=== PATIENT | female | born 1965 | race African-American/Black ===

== ENCOUNTER 2016-12-21 09:31 | Inpatient (IN) | payer OTHER ==
[~2016-12-21] VITALS: Ht 182.9 cm; Wt 92.1 kg
[~2016-12-21 09:31] MED LIST: ALBUAER3 IN; AML5T PO; ASPI81CH43 PO; DOXY-216 PO; ENA10T PO; FLUT250M2 INH; LORA-655 PO; QUET50TA PO
[2016-12-21 10:58] LABS: Basophils # (auto) 0 uL; Basophils % (auto) 0.6 % (0.0-2.0); Eosinophils # (auto) 0.1 uL; Eosinophils % (auto) 1.8 % (0.0-7.0); Hematocrit 41.5 % (36.0-46.0); Hemoglobin 13.9 g/dL (12.2-16.2); Lymphocytes # (auto) 1.7 uL; Lymphocytes % (auto) 35.4 % (10.0-50.0); Mean Corpuscular Hemoglobin 31.7 pg (28.0-32.0); Mean Corpuscular Hgb Conc. 33.5 g/dL (32.0-36.0); Mean Corpuscular Volume 94.5 fL (80.0-100.0); Mean Platelet Volume 7.7 fL (7.4-10.4); Monocytes # (auto) 0.3 uL; Monocytes % (auto) 6.3 % (0.0-12.0); Neutrophils # (auto) 2.7 uL; Neutrophils % (auto) 55.9 % (37.0-80.0); Platelet Count (auto) 198 10^3/uL (140-450); Red Cell Distribution Width 13.8 % (11.6-16.0); White Blood Cell 4.8 10^3/uL (4.4-10.8)
[2016-12-21 11:12] LABS: Urine Mucus FEW (None Seen); Urine RBC 1 /hpf (0 - 4); Urine Squamous Epithelial Cell FEW /hpf (<5)
[2016-12-21 11:13] LABS: Urine Color Yellow (Yellow)
[2016-12-21 11:15] LABS: Urine Bilirubin Negative (Negative); Urine Blood Negative /uL (Negative); Urine Ketone Negative (Negative); Urine Nitrite POSITIVE (Negative); Urine Urobilinogen Normal (Negative)
[2016-12-21 11:21] LABS: Albumin 4.2 g/dL (3.4-5.0); BUN/Creatinine Ratio 19.4; Calcium 9.1 mg/dL (8.5-10.1)
[2016-12-21 11:24] LABS: Bilirubin, Total 0.4 mg/dL (0.2-1.0); Total Protein 8.1 g/dL (6.4-8.2)
[2016-12-21] MEDS ORDERED: SODIUM CHLORIDE 0.9% 500 ML IVB ONE (12:01)
[2016-12-21] MEDS ORDERED: PANTOPRAZOLE SODIUM 40 MG/10 ML VIAL IV STA (12:01)
[2016-12-21] MEDS ORDERED: ONDANSETRON HCL 4 MG/2 ML VIAL IV ONE (12:15)
[2016-12-21] MEDS ORDERED: HYDROmorphone HCL 2 MG/ML VL IV ONE ×2 (12:15→14:15)
[2016-12-21 12:31] LABS: Amylase 30 U/L (25-115)
[2016-12-21] MEDS ORDERED: cloNIDine HCL 0.1 MG TAB PO ONE (12:45)
[2016-12-21] MEDS ORDERED: cefTRIAXone 1GM/50ML D5W 50 ML IV ONE (14:00)
[2016-12-21] MEDS ORDERED: amLODIPine BESYLATE 5 MG TAB PO ONE (15:00)
[2016-12-21] MEDS ORDERED: cloNIDine HCL 0.1 MG TAB PO PRN (15:00)
[2016-12-21] MEDS ORDERED: LABETALOL HCL 5 MG/ML 4ML SYRINGE IV PRN (15:00)
[2016-12-21] MEDS ORDERED: MULTIPLE VITAMIN TAB PO ONE (15:15)
[2016-12-21] MEDS ORDERED: ACETAMINOPHEN 325 MG TAB PO PRN (15:15)
[2016-12-21] MEDS ORDERED: NITROGLYCERIN 0.4 MG SL TAB SL PRN (15:15)
[2016-12-21] MEDS ORDERED: DOCUSATE SOD 100 MG CAP PO PRN (15:15)
[2016-12-21] MEDS ORDERED: HYDROcodone-ACET 5/325MG TAB PO PRN (15:15)
[2016-12-21] MEDS ORDERED: MORPHINE SULF INJ 2 MG/ML SYRINGE 1ML IV PRN ×2 (15:15)
[2016-12-21] MEDS: SODIUM CHLORIDE 0.9% 1,000 ML IV SCH (15:21)
[2016-12-21] MEDS: LEVOFLOXACIN 500MG 100 ML IV SCH (15:32)
[2016-12-21] MEDS: ONDANSETRON HCL 4 MG/2 ML VIAL IV PRN ×2 (16:38→20:53)
[2016-12-21] MEDS: HYDROmorphone HCL 2 MG/ML VL IV PRN ×2 (18:22→22:29)
[2016-12-21] MEDS: ALBUTEROL SULF 2.5 MG/0.5ML(0.5%) NEB SOLN NEB SCH (18:36)
[2016-12-21] MEDS: IPRATROPIUM BROM 0.5 MG/2.5ML INH SOL NEB SCH (18:36)
[2016-12-21] MEDS: BUDESONIDE (INHALATION) 0.5 MG/2 ML NEB NEB SCH (18:37)
[2016-12-21] MEDS: metroNIDAZOLE 500MG/100ML 100 ML IV SCH (22:28)
[2016-12-21] MEDS: FAMOTIDINE 20 MG TAB PO SCH (22:28)
[2016-12-21] MEDS: TEMAZEPAM 15 MG CAP PO PRN (22:29)
[2016-12-21] MEDS: LORazepam 0.5 MG TAB PO PRN (22:29)
[2016-12-22] VITALS (7 sets, daily range): BP systolic 129–181; BP diastolic 78–119
[2016-12-22] MEDS: IPRATROPIUM BROM 0.5 MG/2.5ML INH SOL NEB SCH ×4 (00:19→19:14)
[2016-12-22] MEDS: ALBUTEROL SULF 2.5 MG/0.5ML(0.5%) NEB SOLN NEB SCH ×4 (00:19→19:14)
[2016-12-22] MEDS: diphenhdrAMINE HCL 50 MG/1 ML VL IV PRN ×3 (00:51→22:15)
[2016-12-22] MEDS: HYDROmorphone HCL 2 MG/ML VL IV PRN ×5 (02:40→20:46)
[2016-12-22 06:21] LABS: Basophils # (auto) 0 uL; Basophils % (auto) 0.8 % (0.0-2.0); Eosinophils # (auto) 0.1 uL; Hematocrit 37.1 % (36.0-46.0); Hemoglobin 12.4 g/dL (12.2-16.2); Lymphocytes # (auto) 1.3 uL; Lymphocytes % (auto) 37.9 % (10.0-50.0); Mean Corpuscular Hemoglobin 31.6 pg (28.0-32.0); Mean Corpuscular Hgb Conc. 33.3 g/dL (32.0-36.0); Mean Corpuscular Volume 94.9 fL (80.0-100.0); Mean Platelet Volume 7.7 fL (7.4-10.4); Monocytes # (auto) 0.2 uL; Monocytes % (auto) 5.9 % (0.0-12.0); Neutrophils # (auto) 1.8 uL; Neutrophils % (auto) 53.4 % (37.0-80.0); Platelet Count (auto) 169 10^3/uL (140-450); Red Cell Distribution Width 13.5 % (11.6-16.0); White Blood Cell 3.4 10^3/uL (4.4-10.8)
[2016-12-22 06:44] LABS: Potassium 3.4 mmol/L (3.5-5.1)
[2016-12-22] MEDS: metroNIDAZOLE 500MG/100ML 100 ML IV SCH (06:55)
[2016-12-22 06:57] LABS: Albumin 3.6 g/dL (3.4-5.0); BUN/Creatinine Ratio 16.1; Calcium 8.4 mg/dL (8.5-10.1)
[2016-12-22 06:59] LABS: Bilirubin, Total 0.4 mg/dL (0.2-1.0); Total Protein 7.2 g/dL (6.4-8.2)
[2016-12-22] MEDS: ONDANSETRON HCL 4 MG/2 ML VIAL IV PRN ×4 (07:01→20:45)
[2016-12-22] MEDS: BUDESONIDE (INHALATION) 0.5 MG/2 ML NEB NEB SCH ×2 (07:39→19:14)
[2016-12-22] MEDS: SODIUM CHLORIDE 0.9% 1,000 ML IV SCH (07:41)
[2016-12-22] MEDS ORDERED: cefTRIAXone 1GM/50ML D5W 50 ML IV SCH (09:00)
[2016-12-22] MEDS: LORazepam 0.5 MG TAB PO PRN ×2 (09:53→18:38)
[2016-12-22] MEDS: LEVOFLOXACIN 500MG 100 ML IV SCH (09:54)
[2016-12-22] MEDS: FAMOTIDINE 20 MG TAB PO SCH (09:54)
[2016-12-22] MEDS: MULTIPLE VITAMIN TAB PO SCH (09:55)
[2016-12-22] MEDS ORDERED: PATIENTS OWN MEDICATION IN SCH ×2 (10:00)
[2016-12-22] MEDS ORDERED: amLODIPine BESYLATE 5 MG TAB PO SCH (10:00)
[2016-12-22] MEDS ORDERED: ENALAPRIL MALEATE 2.5 MG TAB PO ONE (13:30)
[2016-12-22] MEDS ORDERED: amLODIPine BESYLATE 5 MG TAB PO ONE (13:45)
[2016-12-22] MEDS ORDERED: PANTOPRAZOLE 40 MG TAB PO ONE (14:15)
[2016-12-22] MEDS: PANTOPRAZOLE 40 MG TAB PO SCH (22:07)
[2016-12-22] MEDS: TEMAZEPAM 15 MG CAP PO PRN (22:23)
[2016-12-23] MEDS: ALBUTEROL SULF 2.5 MG/0.5ML(0.5%) NEB SOLN NEB SCH ×3 (00:46→11:58)
[2016-12-23] MEDS: IPRATROPIUM BROM 0.5 MG/2.5ML INH SOL NEB SCH ×3 (00:46→11:58)
[2016-12-23] MEDS: ONDANSETRON HCL 4 MG/2 ML VIAL IV PRN (04:36)
[2016-12-23] MEDS: HYDROmorphone HCL 2 MG/ML VL IV PRN ×2 (04:36→09:53)
[2016-12-23 05:30] VITALS: BP 139/96
[2016-12-23] MEDS: BUDESONIDE (INHALATION) 0.5 MG/2 ML NEB NEB SCH (06:26)
[2016-12-23 07:42] LABS: INR 1.05 (0.9-1.15); Partial Thromboplastin Time 26.4 sec (22.64-33.71); Prothrombin Time 10.8 sec (9.37-12.3)
[2016-12-23] MEDS ORDERED: PANT40T PO (07:50)
[2016-12-23] MEDS ORDERED: AML5T PO (07:50)
[2016-12-23] MEDS ORDERED: LEVO-28 PO (07:50)
[2016-12-23 08:00] VITALS: BP 139/96
[2016-12-23] MEDS ORDERED: SODIUM CHLORIDE LOCK 10 ML ONE (08:30)
[2016-12-23 08:50] VITALS: BP 116/76
[2016-12-23] MEDS: LEVOFLOXACIN 500MG 100 ML IV SCH (09:53)
[2016-12-23] MEDS: MULTIPLE VITAMIN TAB PO SCH (09:55)
[2016-12-23] MEDS: PANTOPRAZOLE 40 MG TAB PO SCH (09:56)
[2016-12-23] MEDS ORDERED: ENALAPRIL MALEATE 2.5 MG TAB PO SCH (10:00)
[2016-12-23] MEDS ORDERED: amLODIPine BESYLATE 5 MG TAB PO SCH (10:00)
[2016-12-23] MEDS: MIDAZOLAM HCL 5 MG/ML-1ML VIAL ONE ×2 (11:40→11:43)
[2016-12-23] MEDS: LIDOCAINE VISCOUS 2% 15ML UD ONE (11:40)
[2016-12-23] MEDS: diphenhdrAMINE HCL 50 MG/1 ML VL ONE (11:40)
[2016-12-23] MEDS: fentaNYL CITRATE 100 MCG/2 ML VL ONE ×2 (11:40→11:43)
[2016-12-23 12:53] VITALS: BP 139/96
== END 2016-12-23 14:25 | disposition home or self-care (01) | DRG 241 ==
LOC: ER 09:31 → TELE 09:32 → TELE-WESTW 18:45
PROVIDERS: ADMIT Internal Medicine; ATTEND Internal Medicine
PROC: 0DB68ZX Excision of Stomach, Via Natural or Artificial Opening Endoscopic, Diagnostic (ICD-10-PCS; principal; 2016-12-23 11:37)
DX: K29.70 Gastritis, unspecified, without bleeding (principal); K76.0 Fatty (change of) liver, not elsewhere classified; B19.10 Unspecified viral hepatitis B without hepatic coma; N39.0 Urinary tract infection, site not specified; J44.9 Chronic obstructive pulmonary disease, unspecified; K62.5 Hemorrhage of anus and rectum; K57.90 Diverticulosis of intestine, part unspecified, without perforation or abscess without bleeding; F45.8 Other somatoform disorders; I10 Essential (primary) hypertension; E78.5 Hyperlipidemia, unspecified; J45.909 Unspecified asthma, uncomplicated; B96.89 Other specified bacterial agents as the cause of diseases classified elsewhere; I25.10 Atherosclerotic heart disease of native coronary artery without angina pectoris; F41.9 Anxiety disorder, unspecified; F17.210 Nicotine dependence, cigarettes, uncomplicated; M51.36 Other intervertebral disc degeneration, lumbar region; Z85.41 Personal history of malignant neoplasm of cervix uteri; I25.2 Old myocardial infarction; Z79.82 Long term (current) use of aspirin; Z79.899 Other long term (current) drug therapy; Z90.49 Acquired absence of other specified parts of digestive tract; Z98.51 Tubal ligation status; R13.10 Dysphagia, unspecified
CPT/HCPCS: 36415; 43239; 74176; 80053; 81001; 82150; 83690; 84484; 85025; 85610; 85730; 87086; 87088; 87186; 93005; 94640; C9113; J1956; J2250; J2405; J3490

== ENCOUNTER 2017-11-07 20:38 | Inpatient (IN) | payer OTHER ==
[~2017-11-07] VITALS: Ht 182.9 cm; Wt 95.7 kg
[~2017-11-07 20:38] MED LIST changes: -DOXY-216 PO; +LEVO-28 PO; +LEVO500T21 PO; +METR500T PO; +PANT40T PO
[2017-11-07 22:19] LABS: Basophils # (auto) 0.1 uL; Basophils % (auto) 0.8 % (0.0-2.0); Eosinophils # (auto) 0.1 uL; Eosinophils % (auto) 1.4 % (0.0-7.0); Hematocrit 36.6 % (36.0-46.0); Hemoglobin 12.4 g/dL (12.2-16.2); Lymphocytes # (auto) 2.7 uL; Lymphocytes % (auto) 37.6 % (10.0-50.0); Mean Corpuscular Hemoglobin 30.6 pg (28.0-32.0); Mean Corpuscular Volume 90.2 fL (80.0-100.0); Monocytes # (auto) 0.3 uL; Monocytes % (auto) 4.6 % (0.0-12.0); Neutrophils % (auto) 55.6 % (37.0-80.0); Nucleated Red Blood Cells % 0.2 %; Platelet Count (auto) 195 10^3/uL (140-450); Red Blood Cells 4.05 10^6/uL (4.0-5.20); Red Cell Distribution Width 12.7 % (11.8-14.3); White Blood Cell 7.2 10^3/uL (4.4-10.8)
[2017-11-07 22:39] LABS: Alanine Aminotransferase 24 U/L (13-56); Albumin 3.9 g/dL (3.4-5.0); Alkaline Phosphatase 69 U/L (45-117); Amylase 53 U/L (25-115); Anion Gap 9 (5-15); Aspartate Aminotransferase 19 U/L (15-37); BUN/Creatinine Ratio 21.5; Bilirubin, Total 0.3 mg/dL (0.2-1.0); Blood Urea Nitrogen 14 mg/dL (7-18); Calcium 8.8 mg/dL (8.5-10.1); Carbon Dioxide 26 mmol/L (21-32); Chloride 105 mmol/L (98-107); GFR African American 123 mL/min; GFR Non-African American 102 mL/min; Glucose 93 mg/dL (74-106); Lipase 154 U/L (73-393); Magnesium 2.3 mg/dL (1.6-2.6); Potassium 3.7 mmol/L (3.5-5.1); Sodium 140 mmol/L (136-145)
[2017-11-07 23:01] LABS: Urine Bacteria NONE SEEN /hpf (None Seen); Urine Blood Negative /uL (Negative); Urine Mucus FEW (None Seen); Urine Specific Gravity 1.026 (1.001-1.035); Urine WBC 3 /hpf (0 - 5)
[2017-11-08] MEDS ORDERED: metroNIDAZOLE 500MG/100ML 100 ML IV ONE (03:15)
[2017-11-08] MEDS ORDERED: ONDANSETRON HCL 4 MG/2 ML VIAL IV ONE (03:15)
[2017-11-08] MEDS ORDERED: SODIUM CHLORIDE 0.9% 1,000 ML IV ONE (03:15)
[2017-11-08] MEDS ORDERED: HYDROmorphone HCL 2 MG/ML VL IV ONE ×2 (03:15→06:00)
[2017-11-08] MEDS: SODIUM CHLORIDE 0.9% 1,000 ML IV SCH ×2 (05:58→22:26)
[2017-11-08] MEDS ORDERED: ALBUTEROL SULF 2.5 MG/0.5ML(0.5%) NEB SOLN NEB PRN (06:00)
[2017-11-08] MEDS ORDERED: ACETAMINOPHEN 325 MG TAB PO PRN (06:00)
[2017-11-08] MEDS ORDERED: HYDROcodone-ACET 5/325MG TAB PO PRN (06:00)
[2017-11-08] MEDS ORDERED: MORPHINE SULFATE 10 MG/ML INJ 1ML SDV IV PRN (06:00)
[2017-11-08] MEDS ORDERED: LEVOFLOXACIN 500MG 100 ML IV ONE (06:30)
[2017-11-08 07:26] VITALS: BP 122/76
[2017-11-08 07:56] VITALS: BP 119/72
[2017-11-08] MEDS: PANTOPRAZOLE 40 MG/10 ML VIAL IV SCH (09:15)
[2017-11-08] MEDS: amLODIPine BESYLATE 5 MG TAB PO SCH (09:16)
[2017-11-08] MEDS: ENALAPRIL MALEATE 2.5 MG TAB PO SCH (09:17)
[2017-11-08] MEDS: ENOXAPARIN SOD 40 MG/0.4 ML SYRINGE SC SCH (09:17)
[2017-11-08] MEDS ORDERED: MORPHINE SULF INJ 2 MG/ML SYRINGE 1ML IV PRN ×2 (10:45→11:30)
[2017-11-08 12:24] VITALS: BP 121/65
[2017-11-08] MEDS: metroNIDAZOLE 500MG/100ML 100 ML IV SCH ×2 (14:19→21:32)
[2017-11-08] MEDS: ONDANSETRON HCL 4 MG/2 ML VIAL IV PRN (20:10)
[2017-11-08] MEDS ORDERED: NALBUPHINE HCL 10 MG/1ml INJECTION IV ONE (21:00)
[2017-11-08 22:18] VITALS: BP 101/73
[2017-11-08] MEDS: TEMAZEPAM 15 MG CAP PO PRN (23:03)
[2017-11-09 04:25] VITALS: BP 133/89
[2017-11-09 05:34] LABS: Basophils # (auto) 0 uL; Basophils % (auto) 0.5 % (0.0-2.0); Eosinophils # (auto) 0.1 uL; Eosinophils % (auto) 1.1 % (0.0-7.0); Hematocrit 35.1 % (36.0-46.0); Lymphocytes # (auto) 1.8 uL; Lymphocytes % (auto) 30.6 % (10.0-50.0); Mean Corpuscular Hgb Conc. 34.2 g/dL (32.0-36.0); Mean Corpuscular Volume 90.5 fL (80.0-100.0); Monocytes # (auto) 0.3 uL; Monocytes % (auto) 5.3 % (0.0-12.0); Neutrophils # (auto) 3.6 uL; Neutrophils % (auto) 62.5 % (37.0-80.0); Platelet Count (auto) 158 10^3/uL (140-450); Red Blood Cells 3.88 10^6/uL (4.0-5.20); Red Cell Distribution Width 12.4 % (11.8-14.3); White Blood Cell 5.8 10^3/uL (4.4-10.8)
[2017-11-09] MEDS: metroNIDAZOLE 500MG/100ML 100 ML IV SCH ×3 (05:36→21:40)
[2017-11-09 06:04] LABS: Albumin 3.6 g/dL (3.4-5.0); BUN/Creatinine Ratio 14.8; Bilirubin, Total 0.8 mg/dL (0.2-1.0); Calcium 8.8 mg/dL (8.5-10.1); Potassium 3.8 mmol/L (3.5-5.1); Total Protein 7.8 g/dL (6.4-8.2)
[2017-11-09 09:00] VITALS: BP 124/69
[2017-11-09] MEDS: PANTOPRAZOLE 40 MG/10 ML VIAL IV SCH (09:38)
[2017-11-09] MEDS: amLODIPine BESYLATE 5 MG TAB PO SCH (09:46)
[2017-11-09] MEDS: ENALAPRIL MALEATE 2.5 MG TAB PO SCH (09:46)
[2017-11-09] MEDS: ENOXAPARIN SOD 40 MG/0.4 ML SYRINGE SC SCH (09:47)
[2017-11-09] MEDS ORDERED: LEVOFLOXACIN 500MG 100 ML IV SCH (10:00)
[2017-11-09] MEDS ORDERED: OXYCODONE W/ ACETAMINOPHEN 5/325MG TABLET PO ONE (11:30)
[2017-11-09] MEDS ORDERED: METR500T PO (11:31)
[2017-11-09] MEDS ORDERED: LEVO-28 PO (11:31)
[2017-11-09] MEDS: ONDANSETRON HCL 4 MG/2 ML VIAL IV PRN (14:14)
[2017-11-09 16:49] VITALS: BP 125/83
[2017-11-09 17:35] VITALS: BP 125/83
[2017-11-09] MEDS: OXYCODONE W/ ACETAMINOPHEN 5/325MG TABLET PO PRN (20:35)
[2017-11-09] MEDS: TEMAZEPAM 15 MG CAP PO PRN (21:40)
[2017-11-09 22:00] VITALS: BP 119/70
[2017-11-10] MEDS: OXYCODONE W/ ACETAMINOPHEN 5/325MG TABLET PO PRN (02:49)
[2017-11-10] MEDS: metroNIDAZOLE 500MG/100ML 100 ML IV SCH (05:38)
[2017-11-10 06:16] VITALS: BP 138/81
== END 2017-11-10 08:30 | disposition home or self-care (01) | DRG 244 ==
LOC: ER 20:38 → OVERFLOW 20:39 → CENTRAL 11-08 07:52
PROVIDERS: ADMIT Nurse Practitioner; ATTEND Internal Medicine
DX: K57.32 Diverticulitis of large intestine without perforation or abscess without bleeding (principal); F11.20 Opioid dependence, uncomplicated; I10 Essential (primary) hypertension; E78.5 Hyperlipidemia, unspecified; N39.0 Urinary tract infection, site not specified; F17.210 Nicotine dependence, cigarettes, uncomplicated; G89.29 Other chronic pain; J45.909 Unspecified asthma, uncomplicated; K80.20 Calculus of gallbladder without cholecystitis without obstruction; I25.2 Old myocardial infarction; Z88.0 Allergy status to penicillin; Z88.8 Allergy status to other drugs, medicaments and biological substances; Z91.013 Allergy to seafood; Z90.49 Acquired absence of other specified parts of digestive tract
CPT/HCPCS: 36415; 74176; 80053; 81001; 81025; 82150; 83690; 83735; 84484; 85025; 96361; 96365; 96367; 96375; C9113; J1956; J2405; J3490

== ENCOUNTER 2018-04-12 20:34 | Emergency (ER) | payer OTHER ==
[~2018-04-12] VITALS: Ht 182.9 cm; Wt 91.6 kg
[~2018-04-12 20:34] MED LIST changes: -LEVO500T21 PO; -PANT40T PO; -QUET50TA PO
[2018-04-12 21:29] LABS: Urine Bacteria NONE SEEN /hpf (None Seen); Urine Blood Negative /uL (Negative); Urine Mucus FEW (None Seen); Urine Specific Gravity 1.023 (1.001-1.035); Urine WBC 17 /hpf (0 - 5)
[2018-04-12] MEDS ORDERED: cefTRIAXone SOD 1,000 MG VL IM ONE (22:00)
[2018-04-12] MEDS ORDERED: cloNIDine HCL 0.1 MG TAB PO ONE (22:00)
[2018-04-12] MEDS ORDERED: TAMSULOSIN HYDROCHLORIDE 0.4 MG CAP PO ONE (22:00)
[2018-04-12 22:18] VITALS: BP 184/106
== END 2018-04-13 00:20 | disposition home or self-care (01) ==
LOC: ER 20:34
DX: N39.0 Urinary tract infection, site not specified (principal); J45.909 Unspecified asthma, uncomplicated; E78.5 Hyperlipidemia, unspecified; I10 Essential (primary) hypertension; F17.210 Nicotine dependence, cigarettes, uncomplicated; I25.2 Old myocardial infarction; Z98.51 Tubal ligation status; Z90.49 Acquired absence of other specified parts of digestive tract; Z88.0 Allergy status to penicillin; Z91.013 Allergy to seafood
CPT/HCPCS: 74176; 81001; 96372; 99285; J0696

== ENCOUNTER 2018-05-15 19:02 | Inpatient (IN) | payer OTHER ==
[~2018-05-15] VITALS: Ht 182.9 cm; Wt 93.7 kg
[2018-05-15 20:24] LABS: Basophils # (auto) 0.1 uL; Basophils % (auto) 0.8 % (0.0-2.0); Eosinophils # (auto) 0 uL; Eosinophils % (auto) 0.6 % (0.0-7.0); Hematocrit 42.1 % (36.0-46.0); Hemoglobin 14.4 g/dL (12.2-16.2); Lymphocytes # (auto) 1.9 uL; Lymphocytes % (auto) 23.7 % (10.0-50.0); Mean Corpuscular Hemoglobin 33.6 pg (28.0-32.0); Mean Corpuscular Hgb Conc. 34.2 g/dL (32.0-36.0); Mean Corpuscular Volume 98.3 fL (80.0-100.0); Monocytes # (auto) 0.4 uL; Monocytes % (auto) 5.3 % (0.0-12.0); Neutrophils # (auto) 5.5 uL; Neutrophils % (auto) 69.6 % (37.0-80.0); Platelet Count (auto) 174 10^3/uL (140-450); Red Blood Cells 4.28 10^6/uL (4.0-5.20); Red Cell Distribution Width 13.3 % (11.8-14.3)
[2018-05-15 20:41] LABS: Urine Bacteria NONE SEEN /hpf (None Seen); Urine Blood Negative /uL (Negative); Urine Mucus FEW (None Seen); Urine Specific Gravity 1.021 (1.001-1.035); Urine WBC 3 /hpf (0 - 5)
[2018-05-15 20:52] LABS: Alanine Aminotransferase 38 U/L (13-56); Albumin 3.8 g/dL (3.4-5.0); Alkaline Phosphatase 76 U/L (45-117); Anion Gap 10 (5-15); Aspartate Aminotransferase 26 U/L (15-37); BUN/Creatinine Ratio 12.8; Blood Urea Nitrogen 10 mg/dL (7-18); Calcium 8.8 mg/dL (8.5-10.1); Carbon Dioxide 27 mmol/L (21-32); Chloride 103 mmol/L (98-107); GFR African American 99 mL/min; GFR Non-African American 82 mL/min; Glucose 96 mg/dL (74-106); Lipase 86 U/L (73-393); Potassium 3.6 mmol/L (3.5-5.1); Sodium 140 mmol/L (136-145); Total Protein 7.9 g/dL (6.4-8.2)
[2018-05-15 20:53] LABS: Amylase 26 U/L (25-115)
[2018-05-15] MEDS ORDERED: SODIUM CHLORIDE 0.9% 1,000 ML IV ONE (23:15)
[2018-05-15] MEDS ORDERED: MORPHINE SULFATE 4 MG/ML SYR/VIAL IV ONE (23:15)
[2018-05-15] MEDS ORDERED: ONDANSETRON HCL 4 MG/2 ML VIAL IV ONE (23:15)
[2018-05-15] MEDS ORDERED: VANCOMYCIN 1GM/250ML 250 ML IV ONE (23:45)
[2018-05-16] VITALS (7 sets, daily range): BP systolic 121–142; BP diastolic 71–86
[2018-05-16] MEDS ORDERED: ALBUTEROL SULF 2.5 MG/0.5ML(0.5%) NEB SOLN NEB PRN (03:15)
[2018-05-16] MEDS ORDERED: HYDROcodone-ACET 5/325MG TAB PO PRN (03:15)
[2018-05-16] MEDS: LEVOFLOXACIN 500MG 100 ML IV SCH ×2 (04:57→22:37)
[2018-05-16] MEDS: MORPHINE SULFATE 4 MG/ML SYR/VIAL IV PRN ×5 (04:58→22:37)
[2018-05-16] MEDS ORDERED: CARI250T PO (05:33)
[2018-05-16] MEDS ORDERED: METO25TA5 PO (05:33)
[2018-05-16] MEDS: metroNIDAZOLE 500MG/100ML 100 ML IV SCH ×3 (06:09→21:35)
[2018-05-16] MEDS: PANTOPRAZOLE 40 MG/10 ML VIAL IV SCH (09:35)
[2018-05-16] MEDS: ENALAPRIL MALEATE 2.5 MG TAB PO SCH (09:36)
[2018-05-16] MEDS: amLODIPine BESYLATE 5 MG TAB PO SCH (09:36)
[2018-05-16] MEDS: ONDANSETRON HCL 4 MG/2 ML VIAL IV PRN ×3 (09:51→18:26)
[2018-05-16] MEDS ORDERED: DICYCLOMINE HCL 10 MG CAP PO ONE (15:00)
[2018-05-16] MEDS: diphenhdrAMINE HCL 50 MG/1 ML VL IV PRN (18:25)
[2018-05-16] MEDS: TEMAZEPAM 15 MG CAP PO PRN (21:35)
[2018-05-16] MEDS: DOCUSATE SOD 100 MG CAP PO SCH (21:35)
[2018-05-17] MEDS: MORPHINE SULFATE 4 MG/ML SYR/VIAL IV PRN ×5 (02:23→22:53)
[2018-05-17] MEDS: diphenhdrAMINE HCL 50 MG/1 ML VL IV PRN ×3 (02:28→20:29)
[2018-05-17 05:00] VITALS: BP 112/84
[2018-05-17 06:07] LABS: Basophils # (auto) 0 uL; Basophils % (auto) 0.6 % (0.0-2.0); Eosinophils # (auto) 0.1 uL; Eosinophils % (auto) 2.3 % (0.0-7.0); Hematocrit 36.1 % (36.0-46.0); Hemoglobin 12.4 g/dL (12.2-16.2); Lymphocytes # (auto) 1.2 uL; Lymphocytes % (auto) 34.3 % (10.0-50.0); Mean Corpuscular Hemoglobin 33.6 pg (28.0-32.0); Mean Corpuscular Hgb Conc. 34.3 g/dL (32.0-36.0); Monocytes # (auto) 0.2 uL; Monocytes % (auto) 6.7 % (0.0-12.0); Neutrophils % (auto) 56.1 % (37.0-80.0); Nucleated Red Blood Cells % 0.1 %; Platelet Count (auto) 131 10^3/uL (140-450); Red Blood Cells 3.68 10^6/uL (4.0-5.20); Red Cell Distribution Width 13.4 % (11.8-14.3); White Blood Cell 3.6 10^3/uL (4.4-10.8)
[2018-05-17 06:25] LABS: Albumin 3.1 g/dL (3.4-5.0); BUN/Creatinine Ratio 13.7; Bilirubin, Total 0.5 mg/dL (0.2-1.0); Calcium 8.5 mg/dL (8.5-10.1); Potassium 3.7 mmol/L (3.5-5.1); Total Protein 7.1 g/dL (6.4-8.2)
[2018-05-17] MEDS: metroNIDAZOLE 500MG/100ML 100 ML IV SCH ×3 (06:52→21:16)
[2018-05-17 09:00] VITALS: BP 138/88
[2018-05-17] MEDS: PANTOPRAZOLE 40 MG/10 ML VIAL IV SCH (09:30)
[2018-05-17] MEDS: ENALAPRIL MALEATE 2.5 MG TAB PO SCH (09:31)
[2018-05-17] MEDS: amLODIPine BESYLATE 5 MG TAB PO SCH (09:32)
[2018-05-17] MEDS: DOCUSATE SOD 100 MG CAP PO SCH ×2 (09:35→21:17)
[2018-05-17] MEDS: ONDANSETRON HCL 4 MG/2 ML VIAL IV PRN ×2 (12:50→20:28)
[2018-05-17 13:00] VITALS: BP 120/73
[2018-05-17 17:00] VITALS: BP 128/86
[2018-05-17] MEDS: LEVOFLOXACIN 500MG 100 ML IV SCH (21:15)
[2018-05-17] MEDS: TEMAZEPAM 15 MG CAP PO PRN (21:15)
[2018-05-17 22:00] VITALS: BP 137/86
[2018-05-18] MEDS: diphenhdrAMINE HCL 50 MG/1 ML VL IV PRN ×2 (01:44→18:14)
[2018-05-18] MEDS: MORPHINE SULFATE 4 MG/ML SYR/VIAL IV PRN ×7 (01:46→22:11)
[2018-05-18 05:00] VITALS: BP 157/105
[2018-05-18] MEDS: metroNIDAZOLE 500MG/100ML 100 ML IV SCH ×3 (06:10→22:10)
[2018-05-18 06:49] LABS: Basophils # (auto) 0 uL; Eosinophils # (auto) 0.1 uL; Eosinophils % (auto) 2.5 % (0.0-7.0); Hematocrit 38.3 % (36.0-46.0); Hemoglobin 13.1 g/dL (12.2-16.2); Lymphocytes # (auto) 1.2 uL; Lymphocytes % (auto) 37.9 % (10.0-50.0); Mean Corpuscular Hemoglobin 33.3 pg (28.0-32.0); Mean Corpuscular Hgb Conc. 34.1 g/dL (32.0-36.0); Mean Corpuscular Volume 97.7 fL (80.0-100.0); Monocytes # (auto) 0.2 uL; Monocytes % (auto) 6.9 % (0.0-12.0); Neutrophils # (auto) 1.6 uL; Neutrophils % (auto) 51.7 % (37.0-80.0); Nucleated Red Blood Cells % 0.1 %; Platelet Count (auto) 152 10^3/uL (140-450); Red Blood Cells 3.92 10^6/uL (4.0-5.20); Red Cell Distribution Width 13.5 % (11.8-14.3); White Blood Cell 3.1 10^3/uL (4.4-10.8)
[2018-05-18 07:29] LABS: Calcium 8.7 mg/dL (8.5-10.1); Potassium 3.8 mmol/L (3.5-5.1)
[2018-05-18] MEDS: ACETAMINOPHEN 325 MG TAB PO PRN ×2 (08:16→09:39)
[2018-05-18 09:00] VITALS: BP 173/100
[2018-05-18] MEDS: PANTOPRAZOLE 40 MG/10 ML VIAL IV SCH (09:28)
[2018-05-18] MEDS: amLODIPine BESYLATE 5 MG TAB PO SCH (09:31)
[2018-05-18] MEDS: ENALAPRIL MALEATE 2.5 MG TAB PO SCH (09:34)
[2018-05-18] MEDS: DOCUSATE SOD 100 MG CAP PO SCH ×2 (09:39→22:00)
[2018-05-18 13:08] VITALS: BP 143/89
[2018-05-18] MEDS: ONDANSETRON HCL 4 MG/2 ML VIAL IV PRN ×3 (16:25→22:15)
[2018-05-18 17:00] VITALS: BP 131/81
[2018-05-18 22:08] VITALS: BP 136/82
[2018-05-18] MEDS: LEVOFLOXACIN 500MG 100 ML IV SCH (22:10)
[2018-05-18] MEDS: TEMAZEPAM 15 MG CAP PO PRN (22:51)
[2018-05-19] MEDS: MORPHINE SULFATE 4 MG/ML SYR/VIAL IV PRN ×2 (01:08→05:23)
[2018-05-19] MEDS: diphenhdrAMINE HCL 50 MG/1 ML VL IV PRN (02:34)
[2018-05-19 03:01] VITALS: BP 136/82
[2018-05-19 05:06] VITALS: BP 135/78
[2018-05-19] MEDS: metroNIDAZOLE 500MG/100ML 100 ML IV SCH (05:18)
[2018-05-19 07:02] LABS: Basophils # (auto) 0 uL; Basophils % (auto) 0.9 % (0.0-2.0); Eosinophils # (auto) 0.1 uL; Eosinophils % (auto) 2.2 % (0.0-7.0); Hematocrit 39.4 % (36.0-46.0); Hemoglobin 13.6 g/dL (12.2-16.2); Lymphocytes # (auto) 1.3 uL; Lymphocytes % (auto) 39.7 % (10.0-50.0); Mean Corpuscular Hemoglobin 33.4 pg (28.0-32.0); Mean Corpuscular Hgb Conc. 34.6 g/dL (32.0-36.0); Mean Corpuscular Volume 96.6 fL (80.0-100.0); Monocytes # (auto) 0.3 uL; Monocytes % (auto) 7.7 % (0.0-12.0); Neutrophils # (auto) 1.7 uL; Neutrophils % (auto) 49.5 % (37.0-80.0); Nucleated Red Blood Cells % 0.5 %; Platelet Count (auto) 167 10^3/uL (140-450); Red Blood Cells 4.08 10^6/uL (4.0-5.20); Red Cell Distribution Width 13.3 % (11.8-14.3); White Blood Cell 3.4 10^3/uL (4.4-10.8)
[2018-05-19 07:24] LABS: Calcium 8.8 mg/dL (8.5-10.1); Potassium 3.9 mmol/L (3.5-5.1)
[2018-05-19 09:00] VITALS: BP 136/95
[2018-05-19] MEDS: DOCUSATE SOD 100 MG CAP PO SCH (10:00)
[2018-05-19] MEDS: PANTOPRAZOLE 40 MG/10 ML VIAL IV SCH (10:10)
[2018-05-19] MEDS: ENALAPRIL MALEATE 2.5 MG TAB PO SCH (10:11)
[2018-05-19] MEDS: amLODIPine BESYLATE 5 MG TAB PO SCH (10:11)
== END 2018-05-19 11:55 | disposition home or self-care (01) | DRG 244 ==
LOC: ER 19:02 → OVERFLOW 19:03 → WEST WING 05-16 04:10
PROVIDERS: ADMIT Nurse Practitioner; ATTEND Internal Medicine
DX: K57.32 Diverticulitis of large intestine without perforation or abscess without bleeding (principal); E66.01 Morbid (severe) obesity due to excess calories; K76.0 Fatty (change of) liver, not elsewhere classified; E11.9 Type 2 diabetes mellitus without complications; E78.5 Hyperlipidemia, unspecified; F12.90 Cannabis use, unspecified, uncomplicated; F17.210 Nicotine dependence, cigarettes, uncomplicated; I10 Essential (primary) hypertension; I25.10 Atherosclerotic heart disease of native coronary artery without angina pectoris; Z80.1 Family history of malignant neoplasm of trachea, bronchus and lung; Z80.3 Family history of malignant neoplasm of breast; Z83.6 Family history of other diseases of the respiratory system; Z82.49 Family history of ischemic heart disease and other diseases of the circulatory system; Z90.49 Acquired absence of other specified parts of digestive tract; N39.0 Urinary tract infection, site not specified; Z68.28 Body mass index [BMI] 28.0-28.9, adult; Z88.6 Allergy status to analgesic agent; Z88.0 Allergy status to penicillin; Z91.013 Allergy to seafood; I25.2 Old myocardial infarction
CPT/HCPCS: 36415; 74176; 80048; 80053; 81001; 82150; 82378; 83690; 84484; 85025; 93005; 96374; 96375; C9113; J1956; J2405; J3490

== ENCOUNTER 2018-06-16 12:58 | Inpatient (IN) | payer OTHER ==
[~2018-06-16] VITALS: Ht 182.9 cm; Wt 90.2 kg
[~2018-06-16 12:58] MED LIST changes: +CARI250T PO; -LEVO-28 PO; +METO25TA5 PO
[2018-06-16 14:36] LABS: Basophils # (auto) 0.1 uL; Eosinophils # (auto) 0.1 uL; Eosinophils % (auto) 1.8 % (0.0-7.0); Hematocrit 40.2 % (36.0-46.0); Hemoglobin 13.7 g/dL (12.2-16.2); Lymphocytes # (auto) 2.3 uL; Lymphocytes % (auto) 44.9 % (10.0-50.0); Mean Corpuscular Hemoglobin 32.6 pg (28.0-32.0); Mean Corpuscular Volume 95.7 fL (80.0-100.0); Monocytes # (auto) 0.3 uL; Monocytes % (auto) 5.3 % (0.0-12.0); Neutrophils # (auto) 2.5 uL; Nucleated Red Blood Cells % 0.1 %; Platelet Count (auto) 208 10^3/uL (140-450); Red Cell Distribution Width 12.9 % (11.8-14.3); White Blood Cell 5.2 10^3/uL (4.4-10.8)
[2018-06-16 14:40] LABS: Urine Bacteria NONE SEEN /hpf (None Seen); Urine Blood Negative /uL (Negative); Urine Mucus FEW (None Seen); Urine Specific Gravity 1.023 (1.001-1.035); Urine WBC 1 /hpf (0 - 5)
[2018-06-16 15:16] LABS: Alanine Aminotransferase 51 U/L (13-56); Albumin 3.9 g/dL (3.4-5.0); Alkaline Phosphatase 73 U/L (45-117); Anion Gap 5 (5-15); Aspartate Aminotransferase 56 U/L (15-37); Bilirubin, Total 0.3 mg/dL (0.2-1.0); Blood Urea Nitrogen 12 mg/dL (7-18); Calcium 8.6 mg/dL (8.5-10.1); Carbon Dioxide 28 mmol/L (21-32); Chloride 107 mmol/L (98-107); GFR African American 96 mL/min; GFR Non-African American 80 mL/min; Glucose 103 mg/dL (74-106); Magnesium 2.3 mg/dL (1.6-2.6); Potassium 3.7 mmol/L (3.5-5.1); Sodium 140 mmol/L (136-145); Total Protein 7.9 g/dL (6.4-8.2)
[2018-06-16] MEDS ORDERED: SODIUM CHLORIDE 0.9% 1,000 ML IV ONE (20:00)
[2018-06-16] MEDS ORDERED: ONDANSETRON HCL 4 MG/2 ML VIAL IV ONE (20:00)
[2018-06-16] MEDS ORDERED: MORPHINE SULFATE 4 MG/ML SYR/VIAL IV ONE (20:00)
[2018-06-16] MEDS ORDERED: PANTOPRAZOLE 40 MG/10 ML VIAL IV ONE (20:00)
[2018-06-16 20:44] LABS: INR 0.93 (0.9-1.15); Partial Thromboplastin Time 26.1 sec (23.78-33.04)
[2018-06-17] MEDS ORDERED: MORPHINE SULFATE 4 MG/ML SYR/VIAL IV ONE (02:45)
[2018-06-17] MEDS ORDERED: ONDANSETRON HCL 4 MG/2 ML VIAL IV ONE (02:45)
[2018-06-17] MEDS ORDERED: HYDROcodone-ACET 5/325MG TAB PO PRN (04:30)
[2018-06-17] MEDS ORDERED: ALBUTEROL SULF 2.5 MG/0.5ML(0.5%) NEB SOLN NEB PRN (04:30)
[2018-06-17] MEDS ORDERED: ACETAMINOPHEN 325 MG TAB PO PRN (04:30)
[2018-06-17] MEDS: MORPHINE SULF INJ 2 MG/ML SYRINGE 1ML IV PRN ×3 (07:58→22:34)
[2018-06-17] MEDS: ENALAPRIL MALEATE 2.5 MG TAB PO SCH (08:02)
[2018-06-17] MEDS: METOPROLOL SUCCINATE XL 50 MG TAB PO SCH (08:02)
[2018-06-17] MEDS: amLODIPine BESYLATE 5 MG TAB PO SCH (08:02)
[2018-06-17 08:15] LABS: Hematocrit 37.6 % (36.0-46.0); Hemoglobin 12.6 g/dL (12.2-16.2)
[2018-06-17 09:10] VITALS: BP 164/112
[2018-06-17] MEDS ORDERED: cloNIDine HCL 0.1 MG TAB ONE (09:15)
[2018-06-17] MEDS: cloNIDine HCL 0.1 MG TAB PO PRN (09:16)
[2018-06-17] MEDS ORDERED: PANTOPRAZOLE 40 MG/10 ML VIAL IV SCH ×2 (10:00→22:00)
[2018-06-17] MEDS ORDERED: GOLYTELY 4L KIT PO ONE (11:30)
[2018-06-17 12:41] VITALS: BP 133/89
[2018-06-17 13:00] VITALS: BP 133/89
[2018-06-17 17:00] VITALS: BP 128/94
[2018-06-17 22:00] VITALS: BP 139/86
[2018-06-17] MEDS: TEMAZEPAM 15 MG CAP PO PRN (22:34)
[2018-06-17] MEDS: ONDANSETRON HCL 4 MG/2 ML VIAL IV PRN (22:35)
[2018-06-18 05:22] VITALS: BP 158/98
[2018-06-18] MEDS ORDERED: GOLYTELY 4L KIT PO ONE (06:00)
[2018-06-18] MEDS: cloNIDine HCL 0.1 MG TAB PO PRN ×2 (06:27→22:38)
[2018-06-18 06:29] LABS: Basophils # (auto) 0 uL; Eosinophils # (auto) 0.1 uL; Eosinophils % (auto) 2.2 % (0.0-7.0); Hematocrit 38.7 % (36.0-46.0); Hemoglobin 13.2 g/dL (12.2-16.2); Lymphocytes # (auto) 1.8 uL; Lymphocytes % (auto) 46.7 % (10.0-50.0); Mean Corpuscular Hemoglobin 32.6 pg (28.0-32.0); Mean Corpuscular Hgb Conc. 34.1 g/dL (32.0-36.0); Mean Corpuscular Volume 95.5 fL (80.0-100.0); Monocytes # (auto) 0.2 uL; Monocytes % (auto) 5.2 % (0.0-12.0); Neutrophils # (auto) 1.8 uL; Neutrophils % (auto) 44.9 % (37.0-80.0); Nucleated Red Blood Cells % 0.2 %; Platelet Count (auto) 179 10^3/uL (140-450); Red Blood Cells 4.05 10^6/uL (4.0-5.20); Red Cell Distribution Width 12.9 % (11.8-14.3)
[2018-06-18] MEDS: MORPHINE SULF INJ 2 MG/ML SYRINGE 1ML IV PRN ×3 (06:43→22:36)
[2018-06-18] MEDS: ONDANSETRON HCL 4 MG/2 ML VIAL IV PRN ×2 (06:44→22:38)
[2018-06-18 06:48] LABS: Albumin 3.4 g/dL (3.4-5.0); BUN/Creatinine Ratio 11.3; Bilirubin, Total 0.7 mg/dL (0.2-1.0); Calcium 8.5 mg/dL (8.5-10.1); Potassium 3.6 mmol/L (3.5-5.1)
[2018-06-18 08:00] VITALS: BP 140/87
[2018-06-18] MEDS ORDERED: SODIUM CHLORIDE LOCK 10 ML ONE (08:20)
[2018-06-18] MEDS ORDERED: LIDOCAINE VISCOUS 2% 15ML UD ONE (08:20)
[2018-06-18 09:00] VITALS: BP 140/81
[2018-06-18] MEDS: amLODIPine BESYLATE 5 MG TAB PO SCH (10:00)
[2018-06-18] MEDS: ENALAPRIL MALEATE 2.5 MG TAB PO SCH (10:00)
[2018-06-18] MEDS: METOPROLOL SUCCINATE XL 50 MG TAB PO SCH (10:00)
[2018-06-18] MEDS: MIDAZOLAM HCL 5 MG/ML-1ML VIAL ONE ×4 (10:28→10:45)
[2018-06-18] MEDS: fentaNYL CITRATE 100 MCG/2 ML VL ONE ×4 (10:28→10:45)
[2018-06-18] MEDS ORDERED: diphenhdrAMINE HCL 50 MG/1 ML VL ONE (10:30)
[2018-06-18 13:00] VITALS: BP 141/100
[2018-06-18 16:58] VITALS: BP 140/80
[2018-06-18 22:00] VITALS: BP 168/90
[2018-06-18] MEDS: TEMAZEPAM 15 MG CAP PO PRN (22:39)
[2018-06-19 04:42] VITALS: BP 152/90
[2018-06-19] MEDS: cloNIDine HCL 0.1 MG TAB PO PRN (06:33)
[2018-06-19] MEDS: MORPHINE SULF INJ 2 MG/ML SYRINGE 1ML IV PRN (06:34)
[2018-06-19] MEDS: ONDANSETRON HCL 4 MG/2 ML VIAL IV PRN (06:34)
[2018-06-19 08:00] VITALS: BP 159/95
[2018-06-19 09:19] VITALS: BP 136/74
[2018-06-19] MEDS ORDERED: PANTOPRAZOLE 40 MG TAB PO SCH (10:00)
[2018-06-19] MEDS: ENALAPRIL MALEATE 2.5 MG TAB PO SCH (10:15)
[2018-06-19] MEDS: amLODIPine BESYLATE 5 MG TAB PO SCH (10:15)
[2018-06-19] MEDS: METOPROLOL SUCCINATE XL 50 MG TAB PO SCH (10:15)
== END 2018-06-19 12:07 | disposition home or self-care (01) | DRG 244 ==
LOC: ER 12:58 → OVERFLOW 12:59 → WEST WING 06-17 10:49
PROVIDERS: ADMIT Nurse Practitioner; ATTEND Internal Medicine
PROC: 0DB68ZX Excision of Stomach, Via Natural or Artificial Opening Endoscopic, Diagnostic (ICD-10-PCS; principal; 2018-06-18 10:24)
PROC: 0DJD8ZZ Inspection of Lower Intestinal Tract, Via Natural or Artificial Opening Endoscopic (ICD-10-PCS; 2018-06-18 10:24)
DX: K57.31 Diverticulosis of large intestine without perforation or abscess with bleeding (principal); K76.0 Fatty (change of) liver, not elsewhere classified; E66.9 Obesity, unspecified; I10 Essential (primary) hypertension; E78.5 Hyperlipidemia, unspecified; F12.90 Cannabis use, unspecified, uncomplicated; M51.36 Other intervertebral disc degeneration, lumbar region; F17.210 Nicotine dependence, cigarettes, uncomplicated; K52.9 Noninfective gastroenteritis and colitis, unspecified; K63.5 Polyp of colon; Z83.6 Family history of other diseases of the respiratory system; Z80.1 Family history of malignant neoplasm of trachea, bronchus and lung; Z80.3 Family history of malignant neoplasm of breast; Z82.49 Family history of ischemic heart disease and other diseases of the circulatory system; Z90.49 Acquired absence of other specified parts of digestive tract; Z90.89 Acquired absence of other organs; Z98.51 Tubal ligation status; Z82.3 Family history of stroke; Z88.8 Allergy status to other drugs, medicaments and biological substances; Z88.0 Allergy status to penicillin; Z91.013 Allergy to seafood; Z68.27 Body mass index [BMI] 27.0-27.9, adult
CPT/HCPCS: 36415; 43239; 45378; 74176; 80053; 81001; 83735; 84484; 85014; 85018; 85025; 85610; 85730; 86850; 86900; 86901; 87081; 93005; 96361; 96374; 96375; 96376; A6257; C9113; J2250; J2405

== ENCOUNTER 2018-10-02 02:09 | Emergency (ER) | payer OTHER ==
[~2018-10-02] VITALS: Ht 182.9 cm; Wt 90.7 kg
[2018-10-02 02:30] VITALS: BP 116/80
== END 2018-10-02 07:29 | disposition home or self-care (01) ==
LOC: ER 02:09
DX: S20.212A Contusion of left front wall of thorax, initial encounter (principal); S00.83XA Contusion of other part of head, initial encounter; J45.909 Unspecified asthma, uncomplicated; E78.5 Hyperlipidemia, unspecified; I10 Essential (primary) hypertension; I25.2 Old myocardial infarction; F17.210 Nicotine dependence, cigarettes, uncomplicated; F12.90 Cannabis use, unspecified, uncomplicated; Z98.51 Tubal ligation status; Z90.49 Acquired absence of other specified parts of digestive tract; Z88.0 Allergy status to penicillin; Z91.013 Allergy to seafood; Z88.8 Allergy status to other drugs, medicaments and biological substances; Z79.82 Long term (current) use of aspirin; Z79.899 Other long term (current) drug therapy; Y08.89XA Assault by other specified means, initial encounter; Y93.89 Activity, other specified; Y99.8 Other external cause status; Y92.89 Other specified places as the place of occurrence of the external cause
CPT/HCPCS: 70450; 71250; 72125; 93005

== ENCOUNTER 2019-10-27 08:34 | Emergency (ER) | payer OTHER ==
[~2019-10-27] VITALS: Ht 182.9 cm; Wt 89.8 kg
[~2019-10-27 08:34] MED LIST changes: -ENA10T PO; +ENAL10TA PO; +LEVO500T21 PO
[2019-10-27] MEDS ORDERED: MORPHINE SULFATE 4 MG/ML SYR/VIAL ONE (09:13)
[2019-10-27] MEDS ORDERED: ONDANSETRON HCL 4 MG/2 ML VIAL ONE (09:14)
[2019-10-27] MEDS ORDERED: MORPHINE SULFATE 4 MG/ML SYR/VIAL IV ONE (09:15)
[2019-10-27] MEDS ORDERED: ONDANSETRON HCL 4 MG/2 ML VIAL IV ONE (09:15)
[2019-10-27 09:29] LABS: Basophils # (auto) 0 uL; Basophils % (auto) 0.8 % (0.0-2.0); Eosinophils # (auto) 0.1 uL; Eosinophils % (auto) 1.6 % (0.0-7.0); Hematocrit 39.5 % (36.0-46.0); Hemoglobin 13.3 g/dL (12.2-16.2); Lymphocytes # (auto) 2.2 uL; Lymphocytes % (auto) 42.2 % (10.0-50.0); Mean Corpuscular Hemoglobin 32.4 pg (28.0-32.0); Mean Corpuscular Hgb Conc. 33.6 g/dL (32.0-36.0); Mean Corpuscular Volume 96.4 fL (80.0-100.0); Monocytes # (auto) 0.4 uL; Monocytes % (auto) 6.9 % (0.0-12.0); Neutrophils # (auto) 2.5 uL; Neutrophils % (auto) 48.5 % (37.0-80.0); Nucleated Red Blood Cells % 0.1 %; Platelet Count (auto) 178 10^3/uL (140-450); Red Cell Distribution Width 13.7 % (11.8-14.3); White Blood Cell 5.1 10^3/uL (4.4-10.8)
[2019-10-27] MEDS ORDERED: metroNIDAZOLE 500MG/100ML 100 ML IV ONE (09:30)
[2019-10-27 09:52] LABS: Calcium 8.9 mg/dL (8.5-10.1); Potassium 3.9 mmol/L (3.5-5.1)
[2019-10-27 09:55] LABS: BUN/Creatinine Ratio 19.4; Bilirubin, Total 0.3 mg/dL (0.2-1.0); Total Protein 7.7 g/dL (6.4-8.2)
[2019-10-27] MEDS ORDERED: HYDROmorphone HCL 2 MG/ML VL IV ONE (10:15)
[2019-10-27 14:30] VITALS: BP 169/105
[2019-10-27] MEDS ORDERED: cloNIDine HCL 0.1 MG TAB PO ONE (14:45)
== END 2019-10-27 14:52 | disposition home or self-care (01) ==
LOC: ER 08:34
DX: E86.0 Dehydration (principal); R10.9 Unspecified abdominal pain; J45.909 Unspecified asthma, uncomplicated; E78.5 Hyperlipidemia, unspecified; I10 Essential (primary) hypertension; I25.2 Old myocardial infarction; Z88.0 Allergy status to penicillin; Z88.8 Allergy status to other drugs, medicaments and biological substances; Z91.013 Allergy to seafood
CPT/HCPCS: 36415; 73130; 74176; 80053; 83605; 84484; 85025; 87040; 93005; 96365; 96366; 96375; 99284; J1170; J2270; J2405; J3490; J7030

== ENCOUNTER 2020-07-08 08:18 | Inpatient (IN) | payer OTHER ==
[~2020-07-08] VITALS: Ht 182.9 cm; Wt 91.3 kg
[~2020-07-08 08:18] MED LIST changes: -ENAL10TA PO; +ENAL10TA12 PO
[2020-07-08] MEDS ORDERED: SODIUM CHLORIDE 0.9% 500 ML IVB ONE (08:45)
[2020-07-08] MEDS ORDERED: HYDROmorphone HCL 2 MG/ML VL IV ONE (08:45)
[2020-07-08] MEDS ORDERED: ONDANSETRON HCL 4 MG/2 ML VIAL IV ONE (08:45)
[2020-07-08 09:32] LABS: Basophils # (auto) 0.1 10 ^3/uL (0-0.2); Basophils % (auto) 1.4 % (0.0-2.0); Eosinophils # (auto) 0 10 ^3/uL (0-0.8); Eosinophils % (auto) 0.1 % (0.0-7.0); Hematocrit 43.8 % (36.0-46.0); Lymphocytes # (auto) 1.5 10 ^3/uL (0.4-5.4); Lymphocytes % (auto) 18.8 % (10.0-50.0); Mean Corpuscular Hemoglobin 33.2 pg (28.0-32.0); Mean Corpuscular Hgb Conc. 34.1 g/dL (32.0-36.0); Mean Corpuscular Volume 97.4 fL (80.0-100.0); Monocytes # (auto) 0.3 10 ^3/uL (0-1.3); Monocytes % (auto) 4.2 % (0.0-12.0); Neutrophils % (auto) 75.5 % (37.0-80.0); Platelet Count (auto) 226 10^3/uL (140-450); Red Cell Distribution Width 13.6 % (11.8-14.3); White Blood Cell 7.9 10^3/uL (4.4-10.8)
[2020-07-08 10:00] LABS: Albumin 4.9 g/dL (3.4-5.0); Calcium 9.7 mg/dL (8.5-10.1); Potassium 4.2 mmol/L (3.5-5.1)
[2020-07-08 10:04] LABS: BUN/Creatinine Ratio 13.4; Bilirubin, Total 0.8 mg/dL (0.2-1.0); Total Protein 9.3 g/dL (6.4-8.2)
[2020-07-08] MEDS ORDERED: NITROGLYCERIN 0.4 MG SL TAB SL PRN ×2 (11:30→14:00)
[2020-07-08] MEDS ORDERED: MORPHINE SULF INJ 2 MG/ML SYRINGE 1ML IV PRN ×3 (11:30→14:00)
[2020-07-08] MEDS ORDERED: LISI-646 PO (12:14)
[2020-07-08] MEDS ORDERED: ALBU0.084 NEB (12:14)
[2020-07-08] MEDS ORDERED: CARI350T22 PO (12:15)
[2020-07-08] MEDS ORDERED: FLUT250M2 INH (12:16)
[2020-07-08] MEDS ORDERED: MULT-1058 PO (12:17)
[2020-07-08] MEDS ORDERED: AMLO10TA13 PO (12:17)
[2020-07-08] MEDS ORDERED: IBUP800T24 PO (12:18)
[2020-07-08] MEDS ORDERED: CHOL20009 PO (12:18)
[2020-07-08] MEDS ORDERED: ALBUAER3 IN ×2 (12:19)
[2020-07-08] MEDS ORDERED: DICL1GEL50 TD (12:22)
[2020-07-08] MEDS ORDERED: LISINOPRIL 20 MG TAB PO ONE ×2 (14:00→14:15)
[2020-07-08] MEDS ORDERED: LORazepam 0.5 MG TAB PO PRN (14:00)
[2020-07-08] MEDS ORDERED: levoFLOXacin 500MG 100 ML IV ONE (14:00)
[2020-07-08] MEDS ORDERED: ACETAMINOPHEN 325 MG TAB PO PRN (14:00)
[2020-07-08] MEDS ORDERED: DOCUSATE SOD 100 MG CAP PO PRN (14:00)
[2020-07-08] MEDS ORDERED: ALUM & MAG HYDROX-SIMETH LIQ(MAALOX) 30 ML PO PRN (14:00)
[2020-07-08] MEDS ORDERED: ENOXAPARIN SOD 40 MG/0.4 ML SYRINGE SC ONE (14:15)
[2020-07-08] MEDS ORDERED: FAMOTIDINE 20 MG TAB PO ONE (14:15)
[2020-07-08 14:26] LABS: Cholesterol 300 mg/dL (< 200)
[2020-07-08] MEDS ORDERED: HYDROmorphone HCL 2 MG/ML VL IV PRN (14:30)
[2020-07-08 14:31] LABS: HDL Cholesterol 84 mg/dL (40-59); LDL Cholesterol 187 mg/dL (< 100); Triglycerides 212 mg/dL (< 150)
[2020-07-08 14:55] VITALS: BP 170/91
[2020-07-08] MEDS: SODIUM CHLORIDE 0.9% 1,000 ML IV SCH (15:15)
[2020-07-08 16:15] LABS: Urine Bacteria FEW /hpf (None Seen); Urine Blood TRACE /uL (Negative); Urine Hyaline Cast MOD /lpf (0 - 2); Urine Mucus FEW (None Seen); Urine Specific Gravity 1.023 (1.001-1.035); Urine WBC 1 /hpf (0 - 5)
[2020-07-08 16:32] LABS: Amphetamine Screen, Urine NEGATIVE (NEGATIVE); Barbiturate Scree,Urine NEGATIVE (NEGATIVE); Benzodiazephine Screen, Urine NEGATIVE (NEGATIVE); Cannabinoid Screen, Urine POSITIVE (NEGATIVE); Cocaine Screen, Urine NEGATIVE (NEGATIVE); Opiate Scree,Urine POSITIVE (NEGATIVE); Phencyclidine Screen, Urine NEGATIVE (NEGATIVE)
[2020-07-08] MEDS: IPRATROPIUM BROM 0.5 MG/2.5ML INH SOL NEB SCH ×2 (18:40→23:32)
[2020-07-08] MEDS: ALBUTEROL SULF 2.5 MG/0.5ML(0.5%) NEB SOLN NEB PRN ×2 (18:40→23:32)
[2020-07-08] MEDS: HYDROmorphone HCL 2 MG/ML VL IV PRN ×2 (18:49→23:13)
[2020-07-08 21:30] VITALS: BP 172/108
[2020-07-08] MEDS: hydrALAZINE HCL 25 MG TAB PO PRN (21:31)
[2020-07-08] MEDS: FAMOTIDINE 20 MG TAB PO SCH (21:31)
[2020-07-08] MEDS: HYDROcodone-ACET 5/325MG TAB PO PRN (21:32)
[2020-07-08 21:53] VITALS: BP 172/108
[2020-07-08] MEDS: ONDANSETRON HCL 4 MG/2 ML VIAL IV PRN (23:12)
[2020-07-08] MEDS: BUDESONIDE (INHALATION) 0.5 MG/2 ML NEB NEB SCH (23:32)
[2020-07-09] MEDS: IPRATROPIUM BROM 0.5 MG/2.5ML INH SOL NEB SCH ×6 (02:27→22:20)
[2020-07-09] MEDS: ALBUTEROL SULF 2.5 MG/0.5ML(0.5%) NEB SOLN NEB PRN ×4 (02:27→22:21)
[2020-07-09] MEDS: HYDROmorphone HCL 2 MG/ML VL IV PRN ×5 (03:35→21:28)
[2020-07-09] MEDS: ONDANSETRON HCL 4 MG/2 ML VIAL IV PRN ×2 (03:35→19:43)
[2020-07-09 05:00] VITALS: BP 134/88
[2020-07-09] MEDS: BUDESONIDE (INHALATION) 0.5 MG/2 ML NEB NEB SCH ×2 (06:30→18:41)
[2020-07-09] MEDS: SODIUM CHLORIDE 0.9% 1,000 ML IV SCH (06:53)
[2020-07-09 09:00] VITALS: BP 136/80
[2020-07-09] MEDS: ENOXAPARIN SOD 40 MG/0.4 ML SYRINGE SC SCH (09:31)
[2020-07-09] MEDS: FAMOTIDINE 20 MG TAB PO SCH ×2 (09:31→21:29)
[2020-07-09] MEDS: LISINOPRIL 20 MG TAB PO SCH (09:32)
[2020-07-09] MEDS ORDERED: levoFLOXacin 500MG 100 ML IV SCH (10:00)
[2020-07-09 13:00] VITALS: BP 149/79
[2020-07-09] MEDS: HYDROcodone-ACET 5/325MG TAB PO PRN (15:10)
[2020-07-09 17:00] VITALS: BP 138/96
[2020-07-09] MEDS: hydrALAZINE HCL 25 MG TAB PO PRN (21:28)
[2020-07-09 22:00] VITALS: BP 161/88
[2020-07-10] MEDS: HYDROmorphone HCL 2 MG/ML VL IV PRN ×4 (01:23→16:06)
[2020-07-10] MEDS: ONDANSETRON HCL 4 MG/2 ML VIAL IV PRN ×2 (01:23→05:21)
[2020-07-10] MEDS: IPRATROPIUM BROM 0.5 MG/2.5ML INH SOL NEB SCH ×6 (02:00→22:00)
[2020-07-10 05:00] VITALS: BP 138/91
[2020-07-10] MEDS: BUDESONIDE (INHALATION) 0.5 MG/2 ML NEB NEB SCH ×2 (07:16→19:07)
[2020-07-10 08:15] VITALS: BP 136/85
[2020-07-10 09:15] LABS: Basophils # (auto) 0 10 ^3/uL (0-0.2); Basophils % (auto) 0.8 % (0.0-2.0); Eosinophils # (auto) 0 10 ^3/uL (0-0.8); Hematocrit 38.4 % (36.0-46.0); Hemoglobin 13.2 g/dL (12.2-16.2); Lymphocytes # (auto) 1.3 10 ^3/uL (0.4-5.4); Lymphocytes % (auto) 26.3 % (10.0-50.0); Mean Corpuscular Hemoglobin 33.4 pg (28.0-32.0); Mean Corpuscular Hgb Conc. 34.3 g/dL (32.0-36.0); Mean Corpuscular Volume 97.4 fL (80.0-100.0); Monocytes # (auto) 0.2 10 ^3/uL (0-1.3); Monocytes % (auto) 4.4 % (0.0-12.0); Neutrophils # (auto) 3.4 10 ^3/uL (1.6-8.6); Neutrophils % (auto) 67.5 % (37.0-80.0); Nucleated Red Blood Cells % 0.1 %; Platelet Count (auto) 160 10^3/uL (140-450); Red Blood Cells 3.94 10^6/uL (4.0-5.20); Red Cell Distribution Width 13.3 % (11.8-14.3)
[2020-07-10 09:44] LABS: Potassium 3.6 mmol/L (3.5-5.1)
[2020-07-10 09:52] LABS: BUN/Creatinine Ratio 19.6; Calcium 9.2 mg/dL (8.5-10.1)
[2020-07-10] MEDS: FAMOTIDINE 20 MG TAB PO SCH ×2 (09:58→22:07)
[2020-07-10] MEDS: ENOXAPARIN SOD 40 MG/0.4 ML SYRINGE SC SCH (10:00)
[2020-07-10] MEDS: LISINOPRIL 20 MG TAB PO SCH (10:00)
[2020-07-10] MEDS ORDERED: OXYCODONE W/ ACETAMINOPHEN 5/325MG TABLET PO PRN (10:45)
[2020-07-10] MEDS ORDERED: diphenhdrAMINE HCL 25 MG CAP PO PRN (11:30)
[2020-07-10 12:30] VITALS: BP 135/85
[2020-07-10 16:54] VITALS: BP 143/96
[2020-07-10] MEDS: ALBUTEROL SULF 2.5 MG/0.5ML(0.5%) NEB SOLN NEB PRN (19:06)
[2020-07-10] MEDS: OXYCODONE W/ ACETAMINOPHEN 5/325MG TABLET PO PRN (19:41)
[2020-07-10 22:00] VITALS: BP 132/88
[2020-07-11] MEDS: IPRATROPIUM BROM 0.5 MG/2.5ML INH SOL NEB SCH ×6 (02:00→22:48)
[2020-07-11] MEDS: OXYCODONE W/ ACETAMINOPHEN 5/325MG TABLET PO PRN ×5 (02:36→20:57)
[2020-07-11 05:00] VITALS: BP 150/90
[2020-07-11 07:05] LABS: Basophils # (auto) 0 10 ^3/uL (0-0.2); Basophils % (auto) 0.8 % (0.0-2.0); Eosinophils # (auto) 0.1 10 ^3/uL (0-0.8); Eosinophils % (auto) 1.3 % (0.0-7.0); Hematocrit 37.2 % (36.0-46.0); Hemoglobin 12.8 g/dL (12.2-16.2); Lymphocytes # (auto) 1.3 10 ^3/uL (0.4-5.4); Lymphocytes % (auto) 30.4 % (10.0-50.0); Mean Corpuscular Hemoglobin 33.5 pg (28.0-32.0); Mean Corpuscular Hgb Conc. 34.3 g/dL (32.0-36.0); Mean Corpuscular Volume 97.8 fL (80.0-100.0); Monocytes # (auto) 0.3 10 ^3/uL (0-1.3); Monocytes % (auto) 5.8 % (0.0-12.0); Neutrophils # (auto) 2.7 10 ^3/uL (1.6-8.6); Neutrophils % (auto) 61.7 % (37.0-80.0); Nucleated Red Blood Cells % 0.1 %; Platelet Count (auto) 177 10^3/uL (140-450); Red Cell Distribution Width 13.2 % (11.8-14.3); White Blood Cell 4.4 10^3/uL (4.4-10.8)
[2020-07-11 07:20] LABS: Potassium 3.4 mmol/L (3.5-5.1)
[2020-07-11 07:27] LABS: Calcium 9.3 mg/dL (8.5-10.1)
[2020-07-11 08:00] VITALS: BP 158/97
[2020-07-11] MEDS: FAMOTIDINE 20 MG TAB PO SCH ×2 (08:49→22:27)
[2020-07-11] MEDS: ENOXAPARIN SOD 40 MG/0.4 ML SYRINGE SC SCH (08:50)
[2020-07-11] MEDS: LISINOPRIL 20 MG TAB PO SCH (08:51)
[2020-07-11] MEDS ORDERED: PERCOT PO (09:58)
[2020-07-11] MEDS: BUDESONIDE (INHALATION) 0.5 MG/2 ML NEB NEB SCH ×2 (10:37→18:50)
[2020-07-11 11:50] VITALS: BP 125/74
[2020-07-11 13:03] VITALS: BP 158/97
[2020-07-11 16:33] VITALS: BP 133/86
[2020-07-11] MEDS: ALBUTEROL SULF 2.5 MG/0.5ML(0.5%) NEB SOLN NEB PRN ×2 (18:49→22:48)
[2020-07-11 22:00] VITALS: BP 139/89
[2020-07-12] MEDS: OXYCODONE W/ ACETAMINOPHEN 5/325MG TABLET PO PRN ×4 (01:13→13:43)
[2020-07-12] MEDS: IPRATROPIUM BROM 0.5 MG/2.5ML INH SOL NEB SCH ×4 (02:03→14:24)
[2020-07-12 05:00] VITALS: BP 126/71
[2020-07-12] MEDS: BUDESONIDE (INHALATION) 0.5 MG/2 ML NEB NEB SCH (07:12)
[2020-07-12] MEDS: FAMOTIDINE 20 MG TAB PO SCH (08:49)
[2020-07-12] MEDS: ENOXAPARIN SOD 40 MG/0.4 ML SYRINGE SC SCH (08:49)
[2020-07-12] MEDS: LISINOPRIL 20 MG TAB PO SCH (08:50)
[2020-07-12 09:00] VITALS: BP 134/82
[2020-07-12 14:39] VITALS: BP 139/91
== END 2020-07-12 16:00 | disposition home health service (06) | DRG 135 ==
LOC: EDBD 08:18 → ER 08:18 → TELE 08:19 → TELE-WESTW 21:18
PROVIDERS: ADMIT Hospitalist; ATTEND Internal Medicine Pulmonary Disease
DX: S22.41XA Multiple fractures of ribs, right side, initial encounter for closed fracture (principal); N39.0 Urinary tract infection, site not specified; I10 Essential (primary) hypertension; B17.9 Acute viral hepatitis, unspecified; K57.32 Diverticulitis of large intestine without perforation or abscess without bleeding; J98.11 Atelectasis; J44.1 Chronic obstructive pulmonary disease with (acute) exacerbation; M19.90 Unspecified osteoarthritis, unspecified site; F12.90 Cannabis use, unspecified, uncomplicated; F11.20 Opioid dependence, uncomplicated; E66.9 Obesity, unspecified; F17.200 Nicotine dependence, unspecified, uncomplicated; Z88.1 Allergy status to other antibiotic agents; Z88.0 Allergy status to penicillin; Z91.013 Allergy to seafood; Z80.1 Family history of malignant neoplasm of trachea, bronchus and lung; Z82.49 Family history of ischemic heart disease and other diseases of the circulatory system; Z80.3 Family history of malignant neoplasm of breast; W10.8XXA Fall (on) (from) other stairs and steps, initial encounter; Y93.89 Activity, other specified; Y92.89 Other specified places as the place of occurrence of the external cause; Y99.8 Other external cause status; Z68.28 Body mass index [BMI] 28.0-28.9, adult
CPT/HCPCS: 36415; 71045; 71250; 74176; 80048; 80053; 80061; 80307; 81001; 83036; 84484; 85025; 87040; 87086; 94640; 96361; 96374; 96375; G0378; J1956; J2405

== ENCOUNTER 2020-07-19 12:46 | Emergency (ER) | payer OTHER ==
[~2020-07-19] VITALS: Ht 182.9 cm; Wt 88.9 kg
[~2020-07-19 12:46] MED LIST changes: +ALBU0.084 NEB; -AML5T PO; -ASPI81CH43 PO; -CARI250T PO; +CARI350T22 PO; +DICL1GEL50 TD; -ENAL10TA12 PO; -LEVO500T21 PO; +LISI-646 PO; -LORA-655 PO; -METO25TA5 PO; -METR500T PO; +PERCOT PO
[2020-07-19] MEDS ORDERED: HYDROcodone-ACET 10/325MG TAB PO ONE (14:45)
[2020-07-19 14:52] LABS: Basophils # (auto) 0.1 10 ^3/uL (0-0.2); Basophils % (auto) 1.2 % (0.0-2.0); Eosinophils # (auto) 0.1 10 ^3/uL (0-0.8); Eosinophils % (auto) 2.2 % (0.0-7.0); Hematocrit 39.2 % (36.0-46.0); Hemoglobin 13.5 g/dL (12.2-16.2); Mean Corpuscular Hemoglobin 33.4 pg (28.0-32.0); Mean Corpuscular Hgb Conc. 34.5 g/dL (32.0-36.0); Mean Corpuscular Volume 96.8 fL (80.0-100.0); Monocytes # (auto) 0.2 10 ^3/uL (0-1.3); Monocytes % (auto) 4.3 % (0.0-12.0); Neutrophils # (auto) 2.9 10 ^3/uL (1.6-8.6); Neutrophils % (auto) 54.3 % (37.0-80.0); Nucleated Red Blood Cells % 0.1 %; Platelet Count (auto) 294 10^3/uL (140-450); Red Blood Cells 4.05 10^6/uL (4.0-5.20); Red Cell Distribution Width 13.2 % (11.8-14.3); White Blood Cell 5.3 10^3/uL (4.4-10.8)
[2020-07-19 15:08] LABS: Albumin 3.9 g/dL (3.4-5.0); Anion Gap 7 (5-15); Blood Urea Nitrogen 14 mg/dL (7-18); Calcium 9.3 mg/dL (8.5-10.1); Carbon Dioxide 28 mmol/L (21-32); Chloride 103 mmol/L (98-107); Glucose 98 mg/dL (74-106); Potassium 3.5 mmol/L (3.5-5.1); Sodium 138 mmol/L (136-145)
[2020-07-19 15:13] LABS: Alanine Aminotransferase 32 U/L (13-56); Alkaline Phosphatase 90 U/L (45-117); Aspartate Aminotransferase 39 U/L (15-37); BUN/Creatinine Ratio 22.2; Bilirubin, Total 0.4 mg/dL (0.2-1.0); GFR African American 126 mL/min; GFR Non-African American 104 mL/min; Total Protein 7.9 g/dL (6.4-8.2)
[2020-07-19 17:26] VITALS: BP 163/99
== END 2020-07-19 17:38 | disposition home or self-care (01) ==
LOC: ER 12:46
DX: S22.41XD Multiple fractures of ribs, right side, subsequent encounter for fracture with routine healing (principal); X58.XXXD Exposure to other specified factors, subsequent encounter; Z88.0 Allergy status to penicillin; Z91.013 Allergy to seafood
CPT/HCPCS: 36415; 71046; 80053; 84484; 85025; 85379

== ENCOUNTER 2021-08-24 05:57 | Inpatient (IN) | payer OTHER ==
[~2021-08-24] VITALS: Ht 182.9 cm; Wt 87.5 kg
[~2021-08-24 05:57] MED LIST changes: -LISI-646 PO; +LISI20TA28 PO
[2021-08-24 08:12] LABS: Basophils # (auto) 0 10 ^3/uL (0-0.2); Basophils % (auto) 0.7 % (0.0-2.0); Eosinophils # (auto) 0.1 10 ^3/uL (0-0.8); Eosinophils % (auto) 2.1 % (0.0-7.0); Hematocrit 38.1 % (36.0-46.0); Hemoglobin 12.8 g/dL (12.2-16.2); Lymphocytes # (auto) 1.8 10 ^3/uL (0.4-5.4); Mean Corpuscular Hemoglobin 31.7 pg (28.0-32.0); Mean Corpuscular Hgb Conc. 33.6 g/dL (32.0-36.0); Mean Corpuscular Volume 94.4 fL (80.0-100.0); Monocytes # (auto) 0.3 10 ^3/uL (0-1.3); Monocytes % (auto) 4.8 % (0.0-12.0); Neutrophils # (auto) 4.6 10 ^3/uL (1.6-8.6); Neutrophils % (auto) 66.4 % (37.0-80.0); Nucleated Red Blood Cells % 0.1 %; Red Blood Cells 4.04 10^6/uL (4.0-5.20); Red Cell Distribution Width 12.6 % (11.8-14.3); White Blood Cell 6.8 10^3/uL (4.4-10.8)
[2021-08-24 08:21] LABS: Albumin 3.8 g/dL (3.4-5.0); Calcium 9.5 mg/dL (8.5-10.1); Potassium 3.5 mmol/L (3.5-5.1)
[2021-08-24 08:25] LABS: BUN/Creatinine Ratio 19.4; Bilirubin, Total 0.6 mg/dL (0.2-1.0); Total Protein 8.2 g/dL (6.4-8.2)
[2021-08-24] MEDS ORDERED: SODIUM CHLORIDE 0.9% 500 ML IVB ONE (08:45)
[2021-08-24] MEDS ORDERED: SODIUM CHLORIDE 0.9% 1,000 ML IV ONE (08:45)
[2021-08-24] MEDS ORDERED: HYDROmorphone HCL 2 MG/ML VL IV ONE (08:45)
[2021-08-24] MEDS ORDERED: IOHEXOL 300 MG/ML 100ML BOTTLE IJ ONE (08:57)
[2021-08-24] MEDS: PROMETHAZINE HCL 25 MG/ML 1ML IV PRN ×2 (08:58→11:29)
[2021-08-24 09:50] LABS: Urine Bacteria NONE SEEN /hpf (None Seen); Urine Blood Negative /uL (Negative); Urine Hyaline Cast MOD /lpf (0 - 2); Urine Mucus MANY (None Seen); Urine Specific Gravity 1.032 (1.001-1.035); Urine WBC 18 /hpf (0 - 5)
[2021-08-24 10:12] LABS: Magnesium 2.2 mg/dL (1.6-2.6)
[2021-08-24] MEDS ORDERED: metroNIDAZOLE 500MG/100ML 100 ML IV ONE (10:45)
[2021-08-24] MEDS ORDERED: cefTRIAXone 1GM/50ML D5W 50 ML IV ONE (10:45)
[2021-08-24] MEDS ORDERED: DOCUSATE SOD 100 MG CAP PO PRN (10:45)
[2021-08-24] MEDS ORDERED: HYDROcodone-ACET 5/325MG TAB PO PRN (10:45)
[2021-08-24] MEDS ORDERED: ACETAMINOPHEN 325 MG TAB PO PRN (10:45)
[2021-08-24] MEDS ORDERED: CARISOPRODOL 350 MG TAB PO PRN (10:45)
[2021-08-24] MEDS: SODIUM CHLORIDE 0.9% 1,000 ML IV SCH ×2 (10:45→20:45)
[2021-08-24] MEDS: LISINOPRIL 20 MG TAB PO SCH (10:48)
[2021-08-24] MEDS: HYDROmorphone HCL 2 MG/ML VL IV PRN ×3 (11:29→22:34)
[2021-08-24] MEDS ORDERED: ALBUTEROL SULF HFA 90MCG INH 200DOSE IN SCH (12:00)
[2021-08-24] MEDS ORDERED: ALBUTEROL SULF 2.5 MG/0.5ML(0.5%) NEB SOLN NEB PRN (14:30)
[2021-08-24 15:53] VITALS: BP 117/73
[2021-08-24] MEDS ORDERED: SIMV-13 PO (17:28)
[2021-08-24] MEDS ORDERED: AMLO-489 PO (17:28)
[2021-08-24] MEDS: LORazepam 0.5 MG TAB PO PRN (20:09)
[2021-08-24 22:00] VITALS: BP 129/76
[2021-08-24] MEDS: metroNIDAZOLE 500MG/100ML 100 ML IV SCH (22:04)
[2021-08-25] MEDS: HYDROmorphone HCL 2 MG/ML VL IV PRN ×5 (02:24→20:21)
[2021-08-25 05:00] VITALS: BP 138/71
[2021-08-25 05:43] LABS: Basophils # (auto) 0 10 ^3/uL (0-0.2); Basophils % (auto) 0.8 % (0.0-2.0); Eosinophils # (auto) 0.2 10 ^3/uL (0-0.8); Hematocrit 33.6 % (36.0-46.0); Hemoglobin 11.5 g/dL (12.2-16.2); Lymphocytes # (auto) 1.6 10 ^3/uL (0.4-5.4); Lymphocytes % (auto) 37.2 % (10.0-50.0); Mean Corpuscular Hemoglobin 32.3 pg (28.0-32.0); Mean Corpuscular Hgb Conc. 34.3 g/dL (32.0-36.0); Mean Corpuscular Volume 94.4 fL (80.0-100.0); Monocytes # (auto) 0.3 10 ^3/uL (0-1.3); Monocytes % (auto) 6.3 % (0.0-12.0); Neutrophils # (auto) 2.2 10 ^3/uL (1.6-8.6); Neutrophils % (auto) 51.7 % (37.0-80.0); Nucleated Red Blood Cells % 0.2 %; Red Blood Cells 3.56 10^6/uL (4.0-5.20); Red Cell Distribution Width 12.2 % (11.8-14.3); White Blood Cell 4.3 10^3/uL (4.4-10.8)
[2021-08-25 06:04] LABS: Calcium 8.8 mg/dL (8.5-10.1)
[2021-08-25 06:07] LABS: BUN/Creatinine Ratio 26.2
[2021-08-25] MEDS: metroNIDAZOLE 500MG/100ML 100 ML IV SCH ×3 (06:09→21:26)
[2021-08-25] MEDS: ONDANSETRON HCL 4 MG/2 ML VIAL IV PRN ×4 (06:58→21:27)
[2021-08-25] MEDS: SODIUM CHLORIDE 0.9% 1,000 ML IV SCH ×2 (06:59→16:45)
[2021-08-25] MEDS: cefTRIAXone 1GM/50ML D5W 50 ML IV SCH (08:36)
[2021-08-25] MEDS: LISINOPRIL 20 MG TAB PO SCH (08:41)
[2021-08-25 08:53] VITALS: BP 137/100
[2021-08-25] MEDS ORDERED: amLODIPine BESYLATE 5 MG TAB PO ONE (11:15)
[2021-08-25 12:43] VITALS: BP 157/86
[2021-08-25 16:54] VITALS: BP 150/95
[2021-08-25] MEDS: ATORVASTATIN 20 MG TAB PO SCH (21:27)
[2021-08-25] MEDS: LORazepam 0.5 MG TAB PO PRN (21:27)
[2021-08-25 21:56] VITALS: BP 135/79
[2021-08-26] MEDS: HYDROmorphone HCL 2 MG/ML VL IV PRN ×5 (01:40→22:41)
[2021-08-26] MEDS: SODIUM CHLORIDE 0.9% 1,000 ML IV SCH ×3 (02:45→22:58)
[2021-08-26 05:17] VITALS: BP 139/79
[2021-08-26] MEDS: metroNIDAZOLE 500MG/100ML 100 ML IV SCH ×3 (05:31→22:00)
[2021-08-26 08:30] VITALS: BP 131/76
[2021-08-26 09:00] VITALS: BP 131/76
[2021-08-26] MEDS: LISINOPRIL 20 MG TAB PO SCH (09:45)
[2021-08-26] MEDS: amLODIPine BESYLATE 5 MG TAB PO SCH (09:45)
[2021-08-26] MEDS: cefTRIAXone 1GM/50ML D5W 50 ML IV SCH (09:45)
[2021-08-26] MEDS: ONDANSETRON HCL 4 MG/2 ML VIAL IV PRN ×3 (09:46→22:41)
[2021-08-26 13:00] VITALS: BP 180/75
[2021-08-26 17:00] VITALS: BP 126/83
[2021-08-26 22:00] VITALS: BP 139/86
[2021-08-26] MEDS: ATORVASTATIN 20 MG TAB PO SCH (22:00)
[2021-08-27] MEDS: HYDROmorphone HCL 2 MG/ML VL IV PRN ×5 (02:55→20:31)
[2021-08-27 05:00] VITALS: BP 145/85
[2021-08-27] MEDS: metroNIDAZOLE 500MG/100ML 100 ML IV SCH ×3 (06:00→21:26)
[2021-08-27] MEDS: SODIUM CHLORIDE 0.9% 1,000 ML IV SCH ×3 (07:27→20:43)
[2021-08-27 08:30] VITALS: BP 132/96
[2021-08-27 09:08] VITALS: BP 132/96
[2021-08-27] MEDS: amLODIPine BESYLATE 5 MG TAB PO SCH (10:07)
[2021-08-27] MEDS: LISINOPRIL 20 MG TAB PO SCH (10:07)
[2021-08-27] MEDS: cefTRIAXone 1GM/50ML D5W 50 ML IV SCH (10:08)
[2021-08-27 13:02] VITALS: BP 134/103
[2021-08-27 17:33] VITALS: BP 143/89
[2021-08-27] MEDS: ATORVASTATIN 20 MG TAB PO SCH (20:30)
[2021-08-27 22:00] VITALS: BP 149/99
[2021-08-27] MEDS: LORazepam 0.5 MG TAB PO PRN (22:45)
[2021-08-28] MEDS: HYDROmorphone HCL 2 MG/ML VL IV PRN ×3 (00:20→12:22)
[2021-08-28 05:18] VITALS: BP 156/101
[2021-08-28] MEDS: metroNIDAZOLE 500MG/100ML 100 ML IV SCH (05:51)
[2021-08-28] MEDS: ONDANSETRON HCL 4 MG/2 ML VIAL IV PRN (07:21)
[2021-08-28 08:30] VITALS: BP 131/76
[2021-08-28 09:00] VITALS: BP_SYST 102; BP_SYST 131; BP_DIAS 64; BP_DIAS 76
[2021-08-28] MEDS: cefTRIAXone 1GM/50ML D5W 50 ML IV SCH (09:51)
[2021-08-28] MEDS: LISINOPRIL 20 MG TAB PO SCH (09:52)
[2021-08-28] MEDS: amLODIPine BESYLATE 5 MG TAB PO SCH (09:52)
[2021-08-28 10:48] VITALS: BP 131/76
[2021-08-28 13:00] VITALS: BP 139/85
== END 2021-08-28 13:56 | disposition home or self-care (01) | DRG 244 ==
LOC: ER 05:57 → OVERFLOW 10:38 → CENTRAL 16:02
PROVIDERS: ADMIT Hospitalist; ATTEND Family Medicine
DX: K57.92 Diverticulitis of intestine, part unspecified, without perforation or abscess without bleeding (principal); R16.0 Hepatomegaly, not elsewhere classified; E78.00 Pure hypercholesterolemia, unspecified; I10 Essential (primary) hypertension; F17.210 Nicotine dependence, cigarettes, uncomplicated; J44.9 Chronic obstructive pulmonary disease, unspecified; N39.0 Urinary tract infection, site not specified; K62.5 Hemorrhage of anus and rectum; Z20.822 Contact with and (suspected) exposure to COVID-19; B95.2 Enterococcus as the cause of diseases classified elsewhere; Z80.1 Family history of malignant neoplasm of trachea, bronchus and lung; Z80.3 Family history of malignant neoplasm of breast; Z82.49 Family history of ischemic heart disease and other diseases of the circulatory system; Z90.49 Acquired absence of other specified parts of digestive tract; Z88.0 Allergy status to penicillin; Z91.013 Allergy to seafood; I25.2 Old myocardial infarction; Z98.51 Tubal ligation status
CPT/HCPCS: 36415; 71046; 74177; 80048; 80053; 81001; 83690; 83735; 85025; 87081; 87086; 87088; 87186; 87426; 93005; 96361; 96365; 96368; 96375; G0378; J0696; J2405; J3490

== ENCOUNTER 2021-12-27 21:10 | Emergency (ER) | payer OTHER ==
[~2021-12-27] VITALS: Ht 182.9 cm; Wt 89.8 kg
[~2021-12-27 21:10] MED LIST changes: +AMLO-489 PO; +SIMV-13 PO
[2021-12-27 22:09] VITALS: BP 153/118
[2021-12-27 22:29] LABS: Eosinophils # (auto) 0.1 10 ^3/uL (0-0.8); Hemoglobin 13.4 g/dL (12.2-16.2); Monocytes # (auto) 0.4 10 ^3/uL (0-1.3); Nucleated Red Blood Cells % 0.1 %
[2021-12-27 22:33] LABS: Basophils # (auto) 0.1 10 ^3/uL (0-0.2); Basophils % (auto) 2.3 % (0.0-2.0); Eosinophils % (auto) 1.6 % (0.0-7.0); Hematocrit 37.7 % (36.0-46.0); Lymphocytes # (auto) 2.8 10 ^3/uL (0.4-5.4); Lymphocytes % (auto) 45.1 % (10.0-50.0); Mean Corpuscular Hemoglobin 34.9 pg (28.0-32.0); Mean Corpuscular Hgb Conc. 35.7 g/dL (32.0-36.0); Mean Corpuscular Volume 97.8 fL (80.0-100.0); Monocytes % (auto) 5.9 % (0.0-12.0); Neutrophils # (auto) 2.8 10 ^3/uL (1.6-8.6); Neutrophils % (auto) 45.1 % (37.0-80.0); Red Blood Cells 3.85 10^6/uL (4.0-5.20); Red Cell Distribution Width 14.5 % (11.8-14.3); White Blood Cell 6.2 10^3/uL (4.4-10.8)
[2021-12-27 22:43] LABS: INR 0.96 (0.9-1.15)
[2021-12-27 22:49] LABS: Albumin 3.7 g/dL (3.4-5.0); BUN/Creatinine Ratio 16.1; Calcium 9.6 mg/dL (8.5-10.1); Potassium 3.3 mmol/L (3.5-5.1)
[2021-12-27 22:52] LABS: Bilirubin, Total 0.5 mg/dL (0.2-1.0)
== END 2021-12-27 22:36 | disposition left against medical advice (07) ==
LOC: ER 21:10
DX: R10.9 Unspecified abdominal pain (principal); R11.0 Nausea; R19.7 Diarrhea, unspecified; Z53.21 Procedure and treatment not carried out due to patient leaving prior to being seen by health care provider
CPT/HCPCS: 36415; 80053; 85025; 85610; 85730; 86850; 86900; 86901

== ENCOUNTER 2022-03-11 22:34 | Emergency (ER) | payer OTHER ==
[~2022-03-11] VITALS: Ht 182.9 cm; Wt 85.7 kg
[2022-03-11 22:43] VITALS: BP 149/105
[2022-03-11 23:17] LABS: Basophils # (auto) 0.1 10 ^3/uL (0-0.2); Eosinophils # (auto) 0.1 10 ^3/uL (0-0.8); Hemoglobin 13.7 g/dL (12.2-16.2); Mean Corpuscular Hgb Conc. 34.8 g/dL (32.0-36.0); Monocytes # (auto) 0.3 10 ^3/uL (0-1.3); Nucleated Red Blood Cells % 0.1 %
[2022-03-11 23:18] LABS: Basophils % (auto) 1.2 % (0.0-2.0); Eosinophils % (auto) 1.5 % (0.0-7.0); Hematocrit 39.3 % (36.0-46.0); Lymphocytes # (auto) 2.4 10 ^3/uL (0.4-5.4); Lymphocytes % (auto) 48.3 % (10.0-50.0); Mean Corpuscular Hemoglobin 34.7 pg (28.0-32.0); Mean Corpuscular Volume 99.8 fL (80.0-100.0); Monocytes % (auto) 5.3 % (0.0-12.0); Neutrophils # (auto) 2.2 10 ^3/uL (1.6-8.6); Neutrophils % (auto) 43.7 % (37.0-80.0); Red Blood Cells 3.94 10^6/uL (4.0-5.20); Red Cell Distribution Width 13.4 % (11.8-14.3)
[2022-03-11 23:34] LABS: Albumin 3.9 g/dL (3.4-5.0); Calcium 9.8 mg/dL (8.5-10.1); Potassium 3.3 mmol/L (3.5-5.1)
[2022-03-11 23:37] LABS: BUN/Creatinine Ratio 18.2
[2022-03-11 23:40] LABS: Bilirubin, Total 0.5 mg/dL (0.2-1.0); Total Protein 7.8 g/dL (6.4-8.2)
[2022-03-12 01:46] LABS: INR 0.98 (0.9-1.15)
[2022-03-12 03:25] LABS: Amphetamine Screen, Urine NEGATIVE (NEGATIVE); Barbiturate Scree,Urine NEGATIVE (NEGATIVE); Benzodiazephine Screen, Urine NEGATIVE (NEGATIVE); Cannabinoid Screen, Urine POSITIVE (NEGATIVE); Cocaine Screen, Urine NEGATIVE (NEGATIVE); Opiate Scree,Urine NEGATIVE (NEGATIVE); Phencyclidine Screen, Urine NEGATIVE (NEGATIVE); Urine Bacteria FEW /hpf (None Seen); Urine Blood Negative /uL (Negative); Urine Mucus FEW (None Seen); Urine WBC 9 /hpf (0 - 5)
== END 2022-03-12 06:37 | disposition left against medical advice (07) ==
LOC: ER 22:34
DX: K62.5 Hemorrhage of anus and rectum (principal); J44.9 Chronic obstructive pulmonary disease, unspecified; E78.5 Hyperlipidemia, unspecified; I10 Essential (primary) hypertension; F17.210 Nicotine dependence, cigarettes, uncomplicated; F12.10 Cannabis abuse, uncomplicated; Z90.49 Acquired absence of other specified parts of digestive tract; Z98.51 Tubal ligation status; Z88.0 Allergy status to penicillin; Z91.013 Allergy to seafood
CPT/HCPCS: 36415; 71045; 74176; 80053; 80307; 80320; 81001; 82150; 83690; 85025; 85610; 86850; 86900; 86901; 93005

== ENCOUNTER 2022-09-17 18:44 | Emergency (ER) | payer OTHER ==
[~2022-09-17] VITALS: Ht 182.9 cm; Wt 90.0 kg
[2022-09-17 20:17] LABS: Basophils # (auto) 0.1 10 ^3/uL (0-0.2); Basophils % (auto) 1.4 % (0.0-2.0); Eosinophils # (auto) 0.1 10 ^3/uL (0-0.8); Eosinophils % (auto) 2.4 % (0.0-7.0); Hematocrit 39.8 % (36.0-46.0); Hemoglobin 13.4 g/dL (12.2-16.2); Lymphocytes # (auto) 1.4 10 ^3/uL (0.4-5.4); Lymphocytes % (auto) 37.9 % (10.0-50.0); Mean Corpuscular Hgb Conc. 33.8 g/dL (32.0-36.0); Mean Corpuscular Volume 100.8 fL (80.0-100.0); Monocytes # (auto) 0.2 10 ^3/uL (0-1.3); Monocytes % (auto) 5.4 % (0.0-12.0); Neutrophils % (auto) 52.9 % (37.0-80.0); Nucleated Red Blood Cells % 0.3 %; Red Blood Cells 3.95 10^6/uL (4.0-5.20); Red Cell Distribution Width 13.2 % (11.8-14.3); White Blood Cell 3.7 10^3/uL (4.4-10.8)
[2022-09-17 20:20] LABS: Urine Bacteria FEW /hpf (None Seen); Urine Blood Negative /uL (Negative); Urine Mucus FEW (None Seen); Urine Specific Gravity 1.028 (1.001-1.035); Urine WBC 4 /hpf (0 - 5)
[2022-09-17 20:36] LABS: Albumin 3.9 g/dL (3.4-5.0); Calcium 9.4 mg/dL (8.5-10.1); Potassium 3.9 mmol/L (3.5-5.1)
[2022-09-17 20:40] LABS: Bilirubin, Total 0.5 mg/dL (0.2-1.0); Total Protein 7.4 g/dL (6.4-8.2)
[2022-09-18] MEDS ORDERED: CIPR-173 PO (00:27)
[2022-09-18] MEDS ORDERED: PERCOT PO (00:27)
[2022-09-18] MEDS ORDERED: METR500T PO (00:27)
[2022-09-18] MEDS ORDERED: ONDA-144 PO (00:27)
[2022-09-18 00:51] VITALS: BP 157/117
== END 2022-09-18 00:51 | disposition home or self-care (01) ==
LOC: ER 18:44
DX: K29.70 Gastritis, unspecified, without bleeding (principal); K57.30 Diverticulosis of large intestine without perforation or abscess without bleeding; J44.9 Chronic obstructive pulmonary disease, unspecified; E78.5 Hyperlipidemia, unspecified; I10 Essential (primary) hypertension; F17.210 Nicotine dependence, cigarettes, uncomplicated; F12.10 Cannabis abuse, uncomplicated; Z90.49 Acquired absence of other specified parts of digestive tract; Z98.51 Tubal ligation status; Z88.0 Allergy status to penicillin; Z91.013 Allergy to seafood
CPT/HCPCS: 36415; 71045; 74176; 80053; 81001; 84484; 85025; 93005

== ENCOUNTER 2023-02-12 23:28 | Emergency (ER) | payer OTHER ==
[~2023-02-12] VITALS: Ht 182.9 cm; Wt 88.9 kg
[~2023-02-12 23:28] MED LIST changes: +CIPR-173 PO; +METR500T PO; +ONDA-144 PO
[2023-02-12] MEDS ORDERED: ALBUTEROL SULF 2.5 MG/0.5ML(0.5%) NEB SOLN NEB ONE (23:45)
[2023-02-12] MEDS ORDERED: IPRATROPIUM BROM 0.5 MG/2.5ML INH SOL NEB ONE (23:45)
[2023-02-13] MEDS ORDERED: MAGNESIUM SULFATE 1GM/100ML 100 ML IV SCH (00:15)
[2023-02-13] MEDS ORDERED: methylPREDNISolone SOD SUCC 125 MG/2 ML VL IV ONE (00:15)
[2023-02-13 00:46] LABS: Basophils # (auto) 0.1 10 ^3/uL (0-0.2); Basophils % (auto) 1.3 % (0.0-2.0); Eosinophils # (auto) 0 10 ^3/uL (0-0.8); Hematocrit 40.7 % (36.0-46.0); Hemoglobin 13.7 g/dL (12.2-16.2); Lymphocytes # (auto) 2.2 10 ^3/uL (0.4-5.4); Lymphocytes % (auto) 46.3 % (10.0-50.0); Mean Corpuscular Hemoglobin 33.1 pg (28.0-32.0); Mean Corpuscular Hgb Conc. 33.7 g/dL (32.0-36.0); Mean Corpuscular Volume 98.3 fL (80.0-100.0); Monocytes # (auto) 0.2 10 ^3/uL (0-1.3); Monocytes % (auto) 4.6 % (0.0-12.0); Neutrophils # (auto) 2.2 10 ^3/uL (1.6-8.6); Neutrophils % (auto) 46.8 % (37.0-80.0); Nucleated Red Blood Cells % 0.1 %; Red Blood Cells 4.14 10^6/uL (4.0-5.20); Red Cell Distribution Width 13.6 % (11.8-14.3); White Blood Cell 4.7 10^3/uL (4.4-10.8)
[2023-02-13 01:01] LABS: Albumin 3.7 g/dL (3.4-5.0); BUN/Creatinine Ratio 18.5 (10.0-20.0); Calcium 9.5 mg/dL (8.5-10.1)
[2023-02-13 01:03] LABS: Bilirubin, Total 0.2 mg/dL (0.2-1.0); Total Protein 7.8 g/dL (6.4-8.2)
[2023-02-13 01:06] LABS: Potassium 2.9 mmol/L (3.5-5.1)
[2023-02-13 01:57] VITALS: BP 119/72
[2023-02-13] MEDS ORDERED: POTASSIUM EFFERVESENT TAB 25 MEQ PO ONE (02:00)
[2023-02-13] MEDS ORDERED: HYDROcodone-ACET 10/325MG TAB PO ONE (02:45)
== END 2023-02-13 00:24 | disposition left against medical advice (07) ==
LOC: ER 23:28
DX: R06.02 Shortness of breath (principal); R07.89 Other chest pain; J44.9 Chronic obstructive pulmonary disease, unspecified; E78.5 Hyperlipidemia, unspecified; I10 Essential (primary) hypertension; I25.2 Old myocardial infarction; F17.210 Nicotine dependence, cigarettes, uncomplicated; Z90.49 Acquired absence of other specified parts of digestive tract; Z90.89 Acquired absence of other organs; Z79.2 Long term (current) use of antibiotics; Z79.899 Other long term (current) drug therapy; Z88.0 Allergy status to penicillin; Z88.8 Allergy status to other drugs, medicaments and biological substances; Z91.013 Allergy to seafood
CPT/HCPCS: 36415; 71045; 80053; 83880; 84484; 85025; 85379; 93005; 94640; 99285; J7644

== ENCOUNTER 2023-11-01 08:24 | Inpatient (IN) | payer OTHER ==
[~2023-11-01] VITALS: Ht 182.9 cm; Wt 89.1 kg
[~2023-11-01 08:24] MED LIST changes: -AMLO-489 PO; +AMLO1TAB22 PO; -CARI350T22 PO; +CARI350T27 PO; -DICL1GEL50 TD; +DICL1GEL73 TD; -LISI20TA28 PO; +LISI20TA56 PO; -SIMV-13 PO; +SIMV40TA18 PO
[2023-11-01] MEDS ORDERED: SODIUM CHLORIDE 0.9% 500 ML IV ONE (08:45)
[2023-11-01] MEDS ORDERED: HYDROmorphone HCL 2 MG/ML VL/or syr IV ONE (08:45)
[2023-11-01] MEDS ORDERED: ONDANSETRON HCL 4 MG/2 ML VIAL IV ONE (08:45)
[2023-11-01 09:02] LABS: Urine Epithelial Cast None Seen /hpf (<5)
[2023-11-01 09:08] LABS: Basophils # (auto) 0.1 10 ^3/uL (0-0.2); Basophils % (auto) 1.4 % (0.0-2.0); Eosinophils # (auto) 0.1 10 ^3/uL (0-0.8); Eosinophils % (auto) 1.8 % (0.0-7.0); Hematocrit 41.6 % (36.0-46.0); Hemoglobin 14.1 g/dL (12.2-16.2); Lymphocytes # (auto) 1.9 10 ^3/uL (0.4-5.4); Lymphocytes % (auto) 34.8 % (10.0-50.0); Mean Corpuscular Hemoglobin 32.6 pg (28.0-32.0); Mean Corpuscular Hgb Conc. 33.8 g/dL (32.0-36.0); Mean Corpuscular Volume 96.4 fL (80.0-100.0); Monocytes # (auto) 0.3 10 ^3/uL (0-1.3); Neutrophils # (auto) 3.2 10 ^3/uL (1.6-8.6); Red Blood Cells 4.31 10^6/uL (4.0-5.20); Red Cell Distribution Width 12.5 % (11.8-14.3); White Blood Cell 5.6 10^3/uL (4.4-10.8)
[2023-11-01 09:10] LABS: Urine Bacteria NONE SEEN /hpf (None Seen); Urine Blood Negative /uL (Negative); Urine Clarity Clear (Clear); Urine Color Yellow (Yellow); Urine Hyaline Cast FEW /lpf (0 - 2); Urine Mucus FEW (None Seen); Urine Protein, UAD TRACE (Negative); Urine Specific Gravity 1.024 (1.001-1.035); Urine Urobilinogen Normal (Negative); Urine WBC 1 /hpf (0 - 5); Urine pH 5.5 (5.0-8.0)
[2023-11-01] MEDS ORDERED: metroNIDAZOLE 500MG/100ML 100 ML IV ONE (09:15)
[2023-11-01 09:21] LABS: INR 1.03 (0.9-1.15); Partial Thromboplastin Time 29.5 SEC (24.5-34.5); Prothrombin Time 10.8 sec (9.3-11.8)
[2023-11-01 09:22] LABS: Alanine Aminotransferase 46 U/L (7-40); Alkaline Phosphatase 83 U/L (46-116); Anion Gap 8 (5-15); Aspartate Aminotransferase 67 U/L (13-40); BUN/Creatinine Ratio 17.4 (10.0-20.0); Bilirubin, Total 0.6 mg/dL (0.2-1.0); Blood Urea Nitrogen 12 mg/dL (9-23); Calcium 9.9 mg/dL (8.7-10.4); Carbon Dioxide 24 mmol/L (20-30); Chloride 107 mmol/L (98-107); Glucose 103 mg/dL (74-106); Sodium 139 mmol/L (136-145); Total Protein 8.3 g/dL (5.7-8.2)
[2023-11-01] MEDS ORDERED: levoFLOXacin 500MG 100 ML IV ONE (10:30)
[2023-11-01] MEDS ORDERED: DOCUSATE SOD 100 MG CAP PO PRN (10:30)
[2023-11-01] MEDS ORDERED: HYDROcodone-ACET 5/325MG TAB PO PRN (10:30)
[2023-11-01] MEDS ORDERED: IPRATROPIUM BROM 0.5 MG/2.5ML INH SOL NEB PRN (11:15)
[2023-11-01] MEDS ORDERED: ALBUTEROL SULF 2.5 MG/0.5ML(0.5%) NEB SOLN NEB PRN (11:15)
[2023-11-01 12:35] VITALS: O2SAT 98
[2023-11-01] MEDS: SODIUM CHLORIDE 0.9% 1,000 ML IV SCH ×2 (12:37→19:15)
[2023-11-01] MEDS: ACETAMINOPHEN 325 MG TAB PO PRN ×2 (13:08→20:34)
[2023-11-01 14:44] VITALS: BP 140/77; PULSE 77; RESP 18; TEMP 97.7; O2SAT 98
[2023-11-01] MEDS: metroNIDAZOLE 500MG/100ML 100 ML IV SCH ×2 (15:45→21:57)
[2023-11-01 16:19] VITALS: BP 143/65; PULSE 65; RESP 19; TEMP 97.9; O2SAT 99
[2023-11-01 16:50] VITALS: BP 143/86; PULSE 65; RESP 19; TEMP 97.9; O2SAT 99
[2023-11-01] MEDS: CARISOPRODOL 350 MG TAB PO PRN ×2 (17:48→23:52)
[2023-11-01] MEDS: HYDROmorphone HCL 2 MG TAB PO PRN (18:34)
[2023-11-01 20:30] VITALS: PULSE 67; RESP 18; O2SAT 99
[2023-11-01] MEDS ORDERED: MORPHINE SULFATE INJ 2 MG/ml SYRG IV ONE (21:30)
[2023-11-01] MEDS: ATORVASTATIN 20 MG TAB PO SCH (21:57)
[2023-11-01 23:14] VITALS: BP 138/81; PULSE 67; RESP 18; TEMP 98.6; O2SAT 95; O2SAT 98
[2023-11-02] VITALS (8 sets, daily range): BP systolic 127–152; BP diastolic 82–88; PULSE 65–72; RESP 18–20; TEMP 97.2–98.2; O2SAT 95–99
[2023-11-02] MEDS: SODIUM CHLORIDE 0.9% 1,000 ML IV SCH ×3 (03:15→19:15)
[2023-11-02 06:01] LABS: Basophils # (auto) 0.1 10 ^3/uL (0-0.2); Basophils % (auto) 3.1 % (0.0-2.0); Eosinophils # (auto) 0.1 10 ^3/uL (0-0.8); Eosinophils % (auto) 2.7 % (0.0-7.0); Hematocrit 37.4 % (36.0-46.0); Hemoglobin 12.4 g/dL (12.2-16.2); Lymphocytes # (auto) 1.4 10 ^3/uL (0.4-5.4); Lymphocytes % (auto) 34.8 % (10.0-50.0); Mean Corpuscular Hemoglobin 32.3 pg (28.0-32.0); Mean Corpuscular Hgb Conc. 33.2 g/dL (32.0-36.0); Mean Corpuscular Volume 97.4 fL (80.0-100.0); Monocytes # (auto) 0.2 10 ^3/uL (0-1.3); Monocytes % (auto) 5.2 % (0.0-12.0); Neutrophils # (auto) 2.2 10 ^3/uL (1.6-8.6); Neutrophils % (auto) 54.2 % (37.0-80.0); Nucleated Red Blood Cells % 0.2 %; Red Blood Cells 3.84 10^6/uL (4.0-5.20); Red Cell Distribution Width 12.5 % (11.8-14.3)
[2023-11-02 06:12] LABS: Alanine Aminotransferase 40 U/L (7-40); Albumin 4.3 g/dL (3.2-4.8); Alkaline Phosphatase 69 U/L (46-116); Anion Gap 4 (5-15); Aspartate Aminotransferase 68 U/L (13-40); BUN/Creatinine Ratio 14.3 (10.0-20.0); Blood Urea Nitrogen 9 mg/dL (9-23); Calcium 9.7 mg/dL (8.5-10.1); Carbon Dioxide 28 mmol/L (20-30); Chloride 107 mmol/L (98-107); Glucose 85 mg/dL (74-106); Potassium 4.4 mmol/L (3.5-5.1); Sodium 139 mmol/L (136-145)
[2023-11-02 06:13] LABS: Bilirubin, Total 0.5 mg/dL (0.2-1.0)
[2023-11-02] MEDS: metroNIDAZOLE 500MG/100ML 100 ML IV SCH ×3 (06:30→21:58)
[2023-11-02] MEDS: HYDROmorphone HCL 2 MG TAB PO PRN (09:51)
[2023-11-02] MEDS: amLODIPine BESYLATE 5 MG TAB PO SCH (09:52)
[2023-11-02] MEDS: LISINOPRIL 20 MG TAB PO SCH (09:52)
[2023-11-02] MEDS: CARISOPRODOL 350 MG TAB PO PRN (09:57)
[2023-11-02] MEDS ORDERED: levoFLOXacin 500MG 100 ML IV SCH (10:00)
[2023-11-02] MEDS ORDERED: PANTOPRAZOLE 40 MG/10 ML VIAL INJ IV SCH (10:00)
[2023-11-02] MEDS: HYDROmorphone HCL 2 MG/ML VL/or syr IV PRN ×2 (12:33→18:41)
[2023-11-02] MEDS: ONDANSETRON HCL 4 MG/2 ML VIAL IV PRN ×2 (13:50→18:41)
[2023-11-02] MEDS: ACETAMINOPHEN 325 MG TAB PO PRN (16:24)
[2023-11-02] MEDS: ATORVASTATIN 20 MG TAB PO SCH (22:00)
[2023-11-03] VITALS (10 sets, daily range): BP systolic 112–150; BP diastolic 58–87; PULSE 64–73; RESP 18–20; TEMP 97.8–98.3; O2SAT 90–98
[2023-11-03] MEDS: HYDROmorphone HCL 2 MG/ML VL/or syr IV PRN ×5 (01:57→20:45)
[2023-11-03] MEDS: SODIUM CHLORIDE 0.9% 1,000 ML IV SCH (03:15)
[2023-11-03] MEDS: metroNIDAZOLE 500MG/100ML 100 ML IV SCH ×3 (06:06→21:11)
[2023-11-03 06:30] LABS: Chloride 103 mmol/L (98-107); Potassium 3.9 mmol/L (3.5-5.1); Sodium 136 mmol/L (136-145)
[2023-11-03 06:31] LABS: Anion Gap 5 (5-15); Calcium 9.6 mg/dL (8.5-10.1); Carbon Dioxide 28 mmol/L (20-30)
[2023-11-03 06:36] LABS: BUN/Creatinine Ratio 10.6 (10.0-20.0); Blood Urea Nitrogen 7 mg/dL (9-23); Glucose 88 mg/dL (74-106)
[2023-11-03 06:37] LABS: Basophils # (auto) 0 10 ^3/uL (0-0.2); Basophils % (auto) 0.9 % (0.0-2.0); Eosinophils # (auto) 0.1 10 ^3/uL (0-0.8); Eosinophils % (auto) 1.6 % (0.0-7.0); Hematocrit 36.9 % (36.0-46.0); Hemoglobin 12.6 g/dL (12.2-16.2); Lymphocytes # (auto) 1.3 10 ^3/uL (0.4-5.4); Lymphocytes % (auto) 32.9 % (10.0-50.0); Mean Corpuscular Hemoglobin 33.1 pg (28.0-32.0); Mean Corpuscular Hgb Conc. 34.3 g/dL (32.0-36.0); Mean Corpuscular Volume 96.7 fL (80.0-100.0); Monocytes # (auto) 0.2 10 ^3/uL (0-1.3); Monocytes % (auto) 6.1 % (0.0-12.0); Neutrophils # (auto) 2.3 10 ^3/uL (1.6-8.6); Neutrophils % (auto) 58.5 % (37.0-80.0); Red Blood Cells 3.82 10^6/uL (4.0-5.20); Red Cell Distribution Width 12.3 % (11.8-14.3)
[2023-11-03] MEDS ORDERED: cefTRIAXone 1GM/50ML D5W 50 ML IV SCH (09:00)
[2023-11-03] MEDS: amLODIPine BESYLATE 5 MG TAB PO SCH (09:04)
[2023-11-03] MEDS: LISINOPRIL 20 MG TAB PO SCH (09:05)
[2023-11-03] MEDS: ACETAMINOPHEN 325 MG TAB PO PRN (09:05)
[2023-11-03] MEDS ORDERED: LACTULOSE 20Gm/30ML SOLN PO PRN (09:45)
[2023-11-03] MEDS ORDERED: levoFLOXacin 500MG 100 ML IV SCH (10:00)
[2023-11-03] MEDS ORDERED: HYDROmorphone HCL 2 MG/ML VL/or syr IV ONE (12:45)
[2023-11-03] MEDS: ONDANSETRON HCL 4 MG/2 ML VIAL IV PRN ×2 (14:04→20:45)
[2023-11-03] MEDS: SUCRALFATE 1 GM/10 ML ORAL SUSP PO SCH ×2 (17:00→21:11)
[2023-11-03] MEDS: ATORVASTATIN 20 MG TAB PO SCH (21:12)
[2023-11-03] MEDS ORDERED: PANTOPRAZOLE 40 MG TAB PO SCH (22:00)
[2023-11-03] MEDS ORDERED: DOCUSATE SOD 100 MG CAP PO SCH (22:00)
[2023-11-04 05:00] VITALS: BP 140/85; PULSE 67; RESP 20; TEMP 98.2; O2SAT 96
[2023-11-04 05:49] LABS: Basophils # (auto) 0 10 ^3/uL (0-0.2); Basophils % (auto) 0.9 % (0.0-2.0); Eosinophils # (auto) 0.1 10 ^3/uL (0-0.8); Eosinophils % (auto) 1.4 % (0.0-7.0); Hematocrit 38.4 % (36.0-46.0); Hemoglobin 12.9 g/dL (12.2-16.2); Lymphocytes # (auto) 1.5 10 ^3/uL (0.4-5.4); Lymphocytes % (auto) 33.7 % (10.0-50.0); Mean Corpuscular Hemoglobin 32.2 pg (28.0-32.0); Mean Corpuscular Hgb Conc. 33.6 g/dL (32.0-36.0); Monocytes # (auto) 0.3 10 ^3/uL (0-1.3); Monocytes % (auto) 5.8 % (0.0-12.0); Neutrophils # (auto) 2.6 10 ^3/uL (1.6-8.6); Neutrophils % (auto) 58.2 % (37.0-80.0); Nucleated Red Blood Cells % 0.1 %; Red Cell Distribution Width 12.6 % (11.8-14.3); White Blood Cell 4.5 10^3/uL (4.4-10.8)
[2023-11-04 05:50] LABS: Anion Gap 7 (5-15); Carbon Dioxide 27 mmol/L (20-30); Chloride 103 mmol/L (98-107); Potassium 3.8 mmol/L (3.5-5.1); Sodium 137 mmol/L (136-145)
[2023-11-04 05:51] LABS: Calcium 9.6 mg/dL (8.7-10.4)
[2023-11-04 05:56] LABS: BUN/Creatinine Ratio 11.1 (10.0-20.0); Blood Urea Nitrogen 7 mg/dL (9-23); Glucose 91 mg/dL (74-106)
[2023-11-04] MEDS: metroNIDAZOLE 500MG/100ML 100 ML IV SCH (07:00)
[2023-11-04] MEDS: SUCRALFATE 1 GM/10 ML ORAL SUSP PO SCH (07:02)
[2023-11-04] MEDS ORDERED: SODIUM CHLORIDE LOCK 0 ML ONE (08:49)
[2023-11-04] MEDS ORDERED: LIDOCAINE VISCOUS 2% 15ML UD ONE (08:50)
[2023-11-04] MEDS ORDERED: MIDAZOLAM HCL 5 MG/ML-1ML VIAL ONE (08:50)
[2023-11-04] MEDS ORDERED: fentaNYL CITRATE 100 MCG/2 ML VL ONE (08:50)
[2023-11-04] MEDS ORDERED: diphenhdrAMINE HCL 50 MG/1 ML VL ONE (08:50)
== END 2023-11-04 07:56 | disposition left against medical advice (07) | DRG 244 ==
LOC: ER 08:24 → OVERFLOW 10:33 → WEST WING 16:15 → EAST 16:22
PROVIDERS: ADMIT Nurse Practitioner Family; ATTEND Internal Medicine Pulmonary Disease
DX: K57.33 Diverticulitis of large intestine without perforation or abscess with bleeding (principal); E78.5 Hyperlipidemia, unspecified; F17.210 Nicotine dependence, cigarettes, uncomplicated; I10 Essential (primary) hypertension; J44.9 Chronic obstructive pulmonary disease, unspecified; Z53.29 Procedure and treatment not carried out because of patient's decision for other reasons; Z88.1 Allergy status to other antibiotic agents; Z88.0 Allergy status to penicillin; Z91.013 Allergy to seafood; I25.2 Old myocardial infarction; Z90.49 Acquired absence of other specified parts of digestive tract; Z85.41 Personal history of malignant neoplasm of cervix uteri; Z80.3 Family history of malignant neoplasm of breast; Z80.1 Family history of malignant neoplasm of trachea, bronchus and lung; Z80.49 Family history of malignant neoplasm of other genital organs; Z82.49 Family history of ischemic heart disease and other diseases of the circulatory system; Z82.5 Family history of asthma and other chronic lower respiratory diseases
CPT/HCPCS: 36415; 74176; 80048; 80053; 81001; 85025; 85610; 85730; 86850; 86900; 86901; C9113; G0378; J1956; J2250; J2405; J3490

== ENCOUNTER 2024-03-28 13:13 | Inpatient (IN) | payer OTHER ==
[~2024-03-28] VITALS: Ht 182.9 cm; Wt 89.3 kg
[~2024-03-28 13:13] MED LIST changes: +CARI-578 PO; -CARI350T27 PO
[2024-03-28 14:42] LABS: Basophils # (auto) 0.1 10 ^3/uL (0-0.2); Basophils % (auto) 1.2 % (0.0-2.0); Eosinophils # (auto) 0.1 10 ^3/uL (0-0.8); Eosinophils % (auto) 2.3 % (0.0-7.0); Hematocrit 37.5 % (36.0-46.0); Hemoglobin 12.6 g/dL (12.2-16.2); Lymphocytes # (auto) 1.7 10 ^3/uL (0.4-5.4); Lymphocytes % (auto) 32.1 % (10.0-50.0); Mean Corpuscular Hemoglobin 29.5 pg (28.0-32.0); Mean Corpuscular Hgb Conc. 33.6 g/dL (32.0-36.0); Mean Corpuscular Volume 87.9 fL (80.0-100.0); Monocytes # (auto) 0.4 10 ^3/uL (0-1.3); Monocytes % (auto) 6.6 % (0.0-12.0); Neutrophils # (auto) 3.1 10 ^3/uL (1.6-8.6); Neutrophils % (auto) 57.8 % (37.0-80.0); Red Blood Cells 4.26 10^6/uL (4.0-5.20); Red Cell Distribution Width 14.1 % (11.8-14.3); White Blood Cell 5.3 10^3/uL (4.4-10.8)
[2024-03-28 14:59] LABS: Alanine Aminotransferase 14 U/L (7-40); Albumin 4.2 g/dL (3.2-4.8); Alkaline Phosphatase 66 U/L (46-116); Anion Gap 5 (5-15); Aspartate Aminotransferase 21 U/L (13-40); BUN/Creatinine Ratio 15.2 (10.0-20.0); Blood Urea Nitrogen 10 mg/dL (9-23); Calcium 9.7 mg/dL (8.7-10.4); Carbon Dioxide 26 mmol/L (20-30); Chloride 110 mmol/L (98-107); Glucose 102 mg/dL (74-106); Lipase 40 U/L (12-53); Potassium 4.1 mmol/L (3.5-5.1); Sodium 141 mmol/L (136-145)
[2024-03-28 15:00] LABS: Bilirubin, Total 0.3 mg/dL (0.2-1.0); Total Protein 6.6 g/dL (5.7-8.2)
[2024-03-28 16:55] LABS: Urine Bacteria None Seen /hpf (None Seen)
[2024-03-28 17:08] LABS: Urine Blood Negative /uL (Negative); Urine Clarity Clear (Clear); Urine Color Yellow (Yellow); Urine Hyaline Cast FEW /lpf (0 - 2); Urine Mucus FEW (None Seen); Urine Protein, UAD TRACE (Negative); Urine Specific Gravity 1.034 (1.001-1.035); Urine Urobilinogen 2 mg/dL (Negative); Urine WBC 6 /hpf (0 - 5); Urine pH 5.5 (5.0-9.0)
[2024-03-28] MEDS: SODIUM CHLORIDE 0.9% 1,000 ML IV ONE ×2 (17:35)
[2024-03-28] MEDS: levoFLOXacin 500MG 100 ML IV ONE (17:38)
[2024-03-28] MEDS: ONDANSETRON HCL 4 MG/2 ML VIAL IV ONE (17:38)
[2024-03-28] MEDS: MORPHINE SULFATE 4 MG/ML SYR/VIAL IV ONE (17:38)
[2024-03-28] MEDS: metroNIDAZOLE 500MG/100ML 100 ML IV ONE (17:39)
[2024-03-28] MEDS: metroNIDAZOLE 500 MG TAB PO ONE (17:45)
[2024-03-28] MEDS ORDERED: HYDROcodone-ACET 5/325MG TAB PO PRN (20:30)
[2024-03-28] MEDS: metroNIDAZOLE 500 MG TAB PO SCH (22:57)
[2024-03-28] MEDS: ATORVASTATIN 20 MG TAB PO SCH (22:57)
[2024-03-29] VITALS (8 sets, daily range): BP systolic 121–163; BP diastolic 70–88; PULSE 68–79; RESP 16–20; TEMP 97.6–98.8; O2SAT 93–98
[2024-03-29 05:29] LABS: Basophils # (auto) 0 10 ^3/uL (0-0.2); Basophils % (auto) 0.8 % (0.0-2.0); Eosinophils # (auto) 0.1 10 ^3/uL (0-0.8); Eosinophils % (auto) 2.1 % (0.0-7.0); Hematocrit 35.2 % (36.0-46.0); Hemoglobin 11.7 g/dL (12.2-16.2); Lymphocytes # (auto) 1.6 10 ^3/uL (0.4-5.4); Lymphocytes % (auto) 28.6 % (10.0-50.0); Mean Corpuscular Hemoglobin 29.3 pg (28.0-32.0); Mean Corpuscular Hgb Conc. 33.3 g/dL (32.0-36.0); Monocytes # (auto) 0.4 10 ^3/uL (0-1.3); Monocytes % (auto) 6.4 % (0.0-12.0); Neutrophils # (auto) 3.5 10 ^3/uL (1.6-8.6); Neutrophils % (auto) 62.1 % (37.0-80.0); Nucleated Red Blood Cells % 0.1 %; White Blood Cell 5.6 10^3/uL (4.4-10.8)
[2024-03-29 05:36] LABS: Anion Gap 6 (5-15); Carbon Dioxide 28 mmol/L (20-30); Chloride 108 mmol/L (98-107); Potassium 3.9 mmol/L (3.5-5.1); Sodium 142 mmol/L (136-145)
[2024-03-29 05:42] LABS: BUN/Creatinine Ratio 13.6 (10.0-20.0); Blood Urea Nitrogen 9 mg/dL (9-23); Glucose 104 mg/dL (74-106)
[2024-03-29] MEDS: MORPHINE SULFATE INJ 2 MG/ml SYRG IV PRN ×2 (06:15→15:02)
[2024-03-29] MEDS: levoFLOXacin 500MG 100 ML IV SCH (10:00)
[2024-03-29] MEDS: LISINOPRIL 20 MG TAB PO SCH (14:57)
[2024-03-29] MEDS: ACETAMINOPHEN 325 MG TAB PO PRN (14:58)
[2024-03-29] MEDS: ONDANSETRON HCL 4 MG/2 ML VIAL IV PRN (15:11)
[2024-03-29] MEDS ORDERED: HYDROcodone-ACET 5/325MG TAB PO PRN (21:00)
[2024-03-29] MEDS: TEMAZEPAM 15 MG CAP PO PRN (21:31)
[2024-03-30] VITALS (8 sets, daily range): BP systolic 126–168; BP diastolic 75–96; PULSE 63–95; RESP 16–20; TEMP 97.3–98.2; O2SAT 93–98
[2024-03-30 05:45] LABS: Chloride 107 mmol/L (98-107); Sodium 138 mmol/L (136-145)
[2024-03-30 05:46] LABS: Anion Gap 3 (5-15); Carbon Dioxide 28 mmol/L (20-30)
[2024-03-30 05:47] LABS: Calcium 9.6 mg/dL (8.7-10.4)
[2024-03-30 05:51] LABS: BUN/Creatinine Ratio 10.7 (10.0-20.0); Blood Urea Nitrogen 6 mg/dL (9-23); Glucose 93 mg/dL (74-106)
[2024-03-30 05:52] LABS: Magnesium 1.7 mg/dL (1.6-2.6)
[2024-03-30] MEDS: HYDROmorphone HCL 2 MG/ML VL/or syr IV PRN (12:28)
[2024-03-31] VITALS (9 sets, daily range): BP systolic 126–151; BP diastolic 65–98; PULSE 60–89; RESP 16–20; TEMP 97.3–98.8; O2SAT 94–98
[2024-03-31 06:39] LABS: Anion Gap 4 (5-15); Carbon Dioxide 31 mmol/L (20-30); Chloride 102 mmol/L (98-107); Potassium 3.4 mmol/L (3.5-5.1); Sodium 137 mmol/L (136-145)
[2024-03-31 06:40] LABS: Calcium 9.4 mg/dL (8.5-10.1)
[2024-03-31 06:45] LABS: BUN/Creatinine Ratio 8.3 (10.0-20.0); Blood Urea Nitrogen 5 mg/dL (9-23); Glucose 95 mg/dL (74-106)
[2024-03-31] MEDS: POTASSIUM CHL 20 Meq TABLET PO ONE (15:40)
[2024-04-01 05:40] LABS: Chloride 106 mmol/L (98-107); Potassium 3.8 mmol/L (3.5-5.1); Sodium 140 mmol/L (136-145)
[2024-04-01 05:41] LABS: Anion Gap 3 (5-15); Carbon Dioxide 31 mmol/L (20-30)
[2024-04-01 05:42] LABS: Calcium 10.2 mg/dL (8.7-10.4)
[2024-04-01 05:45] LABS: Basophils # (auto) 0 10 ^3/uL (0-0.2); Basophils % (auto) 0.7 % (0.0-2.0); Eosinophils # (auto) 0.1 10 ^3/uL (0-0.8); Eosinophils % (auto) 2.2 % (0.0-7.0); Hemoglobin 12.1 g/dL (12.2-16.2); Lymphocytes # (auto) 1.9 10 ^3/uL (0.4-5.4); Lymphocytes % (auto) 36.7 % (10.0-50.0); Mean Corpuscular Hemoglobin 29.1 pg (28.0-32.0); Mean Corpuscular Hgb Conc. 33.7 g/dL (32.0-36.0); Mean Corpuscular Volume 86.5 fL (80.0-100.0); Monocytes # (auto) 0.3 10 ^3/uL (0-1.3); Monocytes % (auto) 5.3 % (0.0-12.0); Neutrophils # (auto) 2.8 10 ^3/uL (1.6-8.6); Neutrophils % (auto) 55.1 % (37.0-80.0); Nucleated Red Blood Cells % 0.1 %; Red Blood Cells 4.16 10^6/uL (4.0-5.20); Red Cell Distribution Width 13.6 % (11.8-14.3)
[2024-04-01 05:46] LABS: BUN/Creatinine Ratio 15.4 (10.0-20.0); Blood Urea Nitrogen 10 mg/dL (9-23); Glucose 104 mg/dL (74-106)
[2024-04-01 08:00] VITALS: BP 143/85; PULSE 66; RESP 18; TEMP 97.9; O2SAT 93
[2024-04-01] MEDS ORDERED: LEVO500T91 PO (11:30)
[2024-04-01] MEDS ORDERED: METR-344 PO (11:30)
[2024-04-01 12:00] VITALS: BP 129/84; PULSE 69; RESP 16; TEMP 98.8; O2SAT 98
[2024-04-01 14:34] VITALS: BP 129/84; PULSE 69; RESP 16; TEMP 98.8; O2SAT 98
[2024-04-01 14:55] VITALS: BP 129/84; PULSE 69; RESP 16
== END 2024-04-01 15:35 | disposition home or self-care (01) | DRG 244 ==
LOC: ER 13:13 → OVERFLOW 20:34 → EAST 03-29 05:44
PROVIDERS: ADMIT Nurse Practitioner; ATTEND Internal Medicine Geriatric Medicine
DX: K57.32 Diverticulitis of large intestine without perforation or abscess without bleeding (principal); E78.2 Mixed hyperlipidemia; I10 Essential (primary) hypertension; G40.909 Epilepsy, unspecified, not intractable, without status epilepticus; Z88.0 Allergy status to penicillin; Z91.013 Allergy to seafood; Z80.49 Family history of malignant neoplasm of other genital organs; Z80.3 Family history of malignant neoplasm of breast; Z80.1 Family history of malignant neoplasm of trachea, bronchus and lung; Z82.49 Family history of ischemic heart disease and other diseases of the circulatory system; Z82.5 Family history of asthma and other chronic lower respiratory diseases
CPT/HCPCS: 36415; 74176; 80048; 80053; 81001; 83605; 83690; 83735; 85025; 87040; G0378; J1956; J2405

== ENCOUNTER 2024-11-05 11:30 | Inpatient (IN) | payer OTHER ==
[~2024-11-05] VITALS: Ht 182.9 cm; Wt 92.3 kg
[~2024-11-05 11:30] MED LIST changes: -CIPR-173 PO; -DICL1GEL73 TD; -FLUT250M2 INH; +LEVO500T91 PO; +METR-344 PO; -METR500T PO; -PERCOT PO
[2024-11-05] MEDS: SODIUM CHLORIDE 0.9% 500 ML IV ONE (12:35)
[2024-11-05] MEDS ORDERED: MORPHINE SULFATE 4 MG/ML SYR/VIAL IV ONE (12:45)
[2024-11-05 13:19] LABS: Basophils # (auto) 0 10 ^3/uL (0-0.2); Basophils % (auto) 1.2 % (0.0-2.0); Eosinophils # (auto) 0.1 10 ^3/uL (0-0.8); Eosinophils % (auto) 2.5 % (0.0-7.0); Hematocrit 41.6 % (36.0-46.0); Hemoglobin 14.2 g/dL (12.2-16.2); Lymphocytes # (auto) 1.3 10 ^3/uL (0.4-5.4); Lymphocytes % (auto) 33.8 % (10.0-50.0); Mean Corpuscular Hemoglobin 33.6 pg (28.0-32.0); Mean Corpuscular Hgb Conc. 34.1 g/dL (32.0-36.0); Mean Corpuscular Volume 98.5 fL (80.0-100.0); Monocytes # (auto) 0.3 10 ^3/uL (0-1.3); Monocytes % (auto) 6.6 % (0.0-12.0); Neutrophils # (auto) 2.2 10 ^3/uL (1.6-8.6); Neutrophils % (auto) 55.9 % (37.0-80.0); Platelet Count (auto) 176 10^3/uL (140-450); Red Blood Cells 4.22 10^6/uL (4.0-5.20); Red Cell Distribution Width 13.6 % (11.8-14.3); White Blood Cell 3.8 10^3/uL (4.4-10.8)
[2024-11-05 13:25] LABS: Alkaline Phosphatase 70 U/L (46-116); Anion Gap 9 (5-15); BUN/Creatinine Ratio 15.8 (10.0-20.0); Blood Urea Nitrogen 15 mg/dL (9-23); Calcium 10.4 mg/dL (8.7-10.4); Carbon Dioxide 27 mmol/L (20-31); Chloride 104 mmol/L (98-107); Sodium 140 mmol/L (136-145)
[2024-11-05 13:26] LABS: Alanine Aminotransferase 41 U/L (7-40); Aspartate Aminotransferase 67 U/L (13-40); Bilirubin, Total 0.6 mg/dL (0.2-1.0); Glucose 108 mg/dL (74-106); Total Protein 7.5 g/dL (5.7-8.2)
--- NOTE | 2024-11-05 13:33 | ED.PDOC ---
GI ASSESSMENT HPI Comments 58y F who presents to the ED for chief complaint of GI bleed. pt states she has history of diverticulitis and states she has been having blood in stool over this time period. Pt states she has been having lower abdominal pain diffusely over the past few days. Pt states her pain is 10/10, constant, with no associated exacerbating or relieving factors. Pt states she was scheduled to have part of bowel removed due to the diverticulitis but states due to abnormal vitals, her surgery was cancelled. Pt otherwise denies any other symptoms at this time. Chief Complaint: GI Bleed Time Seen by MD: 13:30 Primary Care Provider: UNKNOWN Reviewed Notes: Nurses Notes, Medications Allergies: Coded Allergies: Penicillins (Verified Allergy, Severe, ANAPHYLAXIS, SWELLING OF AIR WAY, 11/02/23) SPOKE TO PT AT BEDSIDE 11-02-2023. Patient states she had a severe reaction to PCN as a child and again as an adult a few years ago. Pt described experiencing closing of the airways, red hives on her body, swelling of the face, and requiring administration of Epinephrine. Pt has received Augmentin and Ampicillin in the past and experienced the same reactions. However, patient has taken Keflex PO before and has tolerated it just fine. Ketorolac Tromethamine (Verified Allergy, Unknown, 08/31/17) Shellfish Allergy (Verified Allergy, Unknown, 12/21/16) Home Meds Active Scripts Metronidazole (Flagyl) 500 Mg Tab, 1 TAB PO TID, #30 TAB Prov:GELACIO REYES MD 04/01/24 Levofloxacin Hemihydrate (LEVOFLOXACIN) 500 Mg Tab, 1 TAB PO DAILY, #10 TAB Prov:GELACIO REYES MD 04/01/24 Ondansetron (Zofran) 4 Mg Tab, 4 MG PO BID for 7 Days, #14 MG Prov:VIRGIL PATINO MD 09/18/22 Albuterol Sulfate (VENTOLIN MDI) 90 Mcg Ih, 2 PUFF IN Q6HP, #1 Prov:OLIVIER PRAJAPATI Pharmacist 07/08/20 Reported Medications Simvastatin (Simvastatin) 40 Mg Tab, 1 TAB PO 08/24/21 Amlodipine Besylate (Amlodipine Besylate) 5 Mg Tab, 1 TAB PO DAILYPRN 08/24/21 Carisoprodol (Carisoprodol) 350 Mg Tab, 1 TAB PO BIDP PRN for MUSCLE SPASMS, #60 TAB 07/08/20 Albuterol Sulfate (Albuterol Sulfate) 0.083 % Neb, 1 VIAL NEB Q4HPRN, #50 VIAL 07/08/20 Lisinopril (Lisinopril) 20 Mg Tab, 1 TAB PO DAILYP, #30 TAB 5 Refills 07/08/20 Information Source: Patient Mode of Arrival: Ambulatory Brought in by: self Past Medical History PAST MEDICAL HISTORY: Asthma, COPD, High Lipids, HTN, [place], Seizures Surgical History: BTL, Cholecystectomy, Tonsillectomy DIRECTOR PROCESS History: No Pertinent DIRECTOR PROCESS History Family History Family History: No family hx of Cancer, No family hx of DM Social History Smoker: Cigarettes Alcohol: Occasionally Drugs: Marijuana Lives In: Home Constitutional: denies: chills, diaphoresis, fatigue, fever, malaise, sweats, weakness, others EENTM: denies: blurred vision, double vision, ear bleeding, ear discharge, ear drainage, ear pain, ear ringing, eye pain, eye redness, hearing loss, mouth pain, mouth swelling, nasal discharge, nose bleeding, nose congestion, nose pain, photophobia, tearing, throat pain, throat swelling, voice changes, others Respiratory: denies: cough, hemoptysis, orthopnea, SOB at rest, shortness of breath, SOB with excertion, stridor, wheezing, others Cardiovascular: denies: chest pain, dizzy spells, diaphoresis, Dyspnea on exertion, edema, irregular heart beat, left arm pain, lightheadedness, palpitations, PND, syncope, others Gastrointestinal: reports: abdominal pain, blood streaked bowels, melena; de nies: abdomen distended, constipated, diarrhea, dysphagia, difficulty swallowing, hematemesis, nausea, poor appetite, poor fluid intake, rectal bleeding, rectal pain, vomiting, others Genitourinary: denies: abnormal vagina bleeding, burning, dyspareunia, dysuria, flank pain, frequency, hematuria, incontinence, pain, , vagina discharge, urgency, others Neurological: denies: dizziness, fainting, headache, left sided numbness, left sided weakness, numbness, paresthesia, pre-existing deficit, right sided numbness, right sided weakness, seizure, speech problems, tingling, tremors, weakness, others Musculoskeletal: denies: back pain, gout, joint pain, joint swelling, muscle pain, muscle stiffness, neck pain, others Integumetry: denies: bruises, change in color, change in hair/nails, dryness, laceration, lesions, lumps, rash, wounds, others Allergic/Immunocompromised: denies: Difficulty Healing, Frequent Infections, Hives, Itching, others Hematologic/Lymphatic: denies: anemia, blood clots, easy bleeding, easy bruising, swollen glands, others Endocrine: denies: excessive hunger, excessive sweating, excessive thirst, excessive urination, flushing, intolerance to cold, intolerance to heat, unexplained weight gain, unexplained weight loss, others Psychiatric: denies: anxiety, bipolar disorder, depression, hopeless, panic disorder, schizophrenia, sleepless, suicidal, others All Other Systems: Reviewed and Negative Physical Exam General Appearance: Moderate Distress HEENT: Normal ENT Inspection, Pharynx Normal, TMs Normal Neck: Full Range of Motion, Non-Tender, Normal, Normal Inspection Respiratory: Chest Non-Tender, Lungs Clear, No Accessory Muscle Use, No Respiratory Distress, Normal Breath Sounds Cardiovascular: No Edema, No JVD, No Murmur, No Gallop, Normal Peripheral Pulses, Regular Rate/Rhythm Breast Exam: Deferred Gastrointestinal: Soft, Tenderness Genitalia: Deferred Pelvic: Deferred Rectal: Heme positive stool Extremities: No calf tenderness, Normal capillary refill, Normal inspection, Normal range of motion, Non-tender, No pedal edema Musculoskeletal : Apperance: Normal Neurologic: Alert, dispatch manager II-XII nml as Tested, No Motor Deficits, Normal Affect, Normal Mood, No Sensory Deficits Cerebellar Function: Normal Reflexes: Normal Skin: Dry, Normal Color, Warm Lymphatic: No Adenopathy Was a procedure done? Was a procedure done?: No GI differential Dx Differential Diagnosis: Diverticular disease, Gastritis/PUD, Gastroenteritis, GI hemorrhage, Inflammatory BD, Pancreatitis, Stress Ulcer, Kidney Stone X-Ray, Labs, Meds, VS Vital Signs Date Time Temp Pulse Resp B/P (MAP) Pulse Ox O2 Delivery O2 Flow Rate FiO2 11/05/24 14:06 80 17 135/70 11/05/24 13:36 88 15 140/75 11/05/24 13:26 98.2 88 16 140/75 (96) 98 98.2 11/05/24 12:21 99 18 96 Room Air 11/05/24 12:21 98.9 99 18 126/97 (107) 96 98.9 11/05/24 12:10 98.3 93 18 175/101 (125) 97 Lab Test 11/05/24 12:45 Range/Units White Blood Count 3.8 L 4.4-10.8 10^3/uL Red Blood Count 4.22 4.0-5.20 10^6/uL Hemoglobin 14.2 12.2-16.2 g/dL Hematocrit 41.6 36.0-46.0 % Mean Corpuscular Volume 98.5 80.0-100.0 fL Mean Corpuscular Hemoglobin 33.6 H 28.0-32.0 pg Mean Corpuscular Hemoglobin Concent 34.1 32.0-36.0 g/dL Red Cell Distribution Width 13.6 11.8-14.3 % Platelet Count 176 140-450 10^3/uL Mean Platelet Volume 7.2 6.9-10.8 fL Neutrophils (%) (Auto) 55.9 37.0-80.0 % Lymphocytes (%) (Auto) 33.8 10.0-50.0 % Monocytes (%) (Auto) 6.6 0.0-12.0 % Eosinophils (%) (Auto) 2.5 0.0-7.0 % Basophils (%) (Auto) 1.2 0.0-2.0 % Neutrophils # (Auto) 2.2 1.6-8.6 10 ^3/uL Lymphocytes # (Auto) 1.3 0.4-5.4 10 ^3/uL Monocytes # (Auto) 0.3 0-1.3 10 ^3/uL Eosinophils # (Auto) 0.1 0-0.8 10 ^3/uL Basophils # (Auto) 0 0-0.2 10 ^3/uL Nucleated Red Blood Cells 0.0 % Prothrombin Time 10.4 9.3-11.8 sec Prothrombin Time INR 0.98 0.9-1.15 Activated Partial Thromboplast Time 24.6 24.5-34.5 SEC Sodium Level 140 136-145 mmol/L Potassium Level 4.0 3.5-5.1 mmol/L Chloride Level 104 98-107 mmol/L Carbon Dioxide Level 27 20-31 mmol/L Anion Gap 9 5-15 Blood Urea Nitrogen 15 9-23 mg/dL Creatinine 0.95 0.550-1.02 mg/dL Glomerular Filtration Rate Calc 69 >90 mL/min BUN/Creatinine Ratio 15.8 10.0-20.0 Serum Glucose 108 H 74-106 mg/dL Calcium Level 10.4 8.7-10.4 mg/dL Total Bilirubin 0.6 0.2-1.0 mg/dL Aspartate Amino Transferase (AST) 67 H 13-40 U/L Alanine Aminotransferase (ALT) 41 H 7-40 U/L Alkaline Phosphatase 70 46-116 U/L Total Protein 7.5 5.7-8.2 g/dL Albumin 5.0 H 3.2-4.8 g/dL Current Medications Medications (Trade) Dose Ordered Sig/Mel Route Start Time Stop Time Status Last Admin Sodium Chloride 500 ml @ 1,000 mls/hr Q30M ONCE IV 11/05/24 12:15 11/05/24 12:44 DC 11/05/24 12:35 Ondansetron HCl (Zofran) 4 mg ONCE ONCE IV 11/05/24 12:45 11/05/24 12:46 DC 11/05/24 13:37 Hydromorphone HCl (Dilaudid Injection) 1 mg ONCE ONCE IV 11/05/24 13:30 11/05/24 13:31 DC 11/05/24 13:36 [place] [id number] Ph: [phone] DIAGNOSTIC IMAGING Diagnostic Imaging Report : [id number] Signed PATIENT: IVAN ARAMBULA ACCT: [id number] UNIT: [id number] : 1965 LOC: ER ROOM / BED: / AGE / SEX: 58 / F ADM STATUS: REG ER SERVICE 1231 ORDERING PHYSICIAN: JOSE ELLIOTT MD PROCEDURE(s): ABPLIV - CT AB PEL WITH IV CON ONLY REASON: LLQ pain, bleeding ORDER NUMBER(s): [id number], ACCESSION NUMBER(s): [id number] Exam: CT CT AB PEL WITH IV CON ONLY History: LLQ pain, bleeding Comparison Study: None available at time of dictation. Contrast: Type of contrast: Omnipaque 300 Contrast injected: 80 mL Contrast wasted: 0 TECHNIQUE: A digital rechecker image was obtained. During the uneventful, intravenous administration of contrast material, multislice data acquisition was obtained through the abdomen and pelvis. The data set was subsequently reconstructed into axial images. Images were reviewed on a work station using a combination of axial and multiplanar using a variety of window levels and settings. Radiation Dose Information: CT Dose: CTDI volume is 23.42 mGy. Dose-length product is 1250.17 mGy*cm FINDINGS: Lung Bases: No acute or significant lung base finding. Normal heart size. No pleural or pericardial effusion. Liver: The liver is normal in size. No focal lesions. Normal hepatic vascular enhancement. Gallbladder and Biliary Tree: Gallbladder has been surgically removed. Spleen: Unremarkable Pancreas: The pancreas is normal in appearance without focal lesions or abnormal enhancement. Adrenal Glands: Unremarkable Kidneys: Kidneys demonstrate normal symmetric enhancement without focal lesions, calculi or hydronephrosis. Bladder: Unremarkable Bowel: The stomach is grossly normal in appearance. Small bowel and colon are normal in caliber and distribution. Diverticulosis throughout the colon from the right colon to the sigmoid colon. There is no free air or free fluid. The a ppendix is not visualized; however, no secondary findings of acute appendicitis identified. Ascites: Absent Lymphadenopathy: No mesenteric, retroperitoneal or periportal lymphadenopathy. Abdominal Wall and Mesentery: Unremarkable. Vasculature: The visualized abdominal aorta is normal in size and caliber. Abdominal and pelvic vessels demonstrate normal enhancement. Pelvic Organs: Unremarkable Musculoskeletal: No aggressive focal bony lesions, acute fractures or dislocation. Bony spondylosis and degenerative disc changes in the lumbar spine most notably from L3 through L5. Soft tissues: Unremarkable. IMPRESSION: 1. Diverticulosis throughout the colon from the right colon the sigmoid colon. There is no free air or free fluid. 2. Gallbladder is been surgically removed. 3. Bony spondylosis and degenerative disc changes worse from L3 through L5. 4. All CT scans at this medical facility are performed using dose modulation techniques as appropriate to a performed exam including the following: Automated exposure control was utilized; adjustment of the MA and/or KV according to patient size; and use of iterative reconstruction technique. ATED BY: CORINNA FELDMAN Jr. DO DICTATED DATE/TIME: 11/05/241422 SIGNED BY: CORINNA FELDMAN Jr., DO SIGNED DATE/TIME: 11/05/241422 CC: Time of 1ST Reevaluation: 14:00 Reevaluation 1ST: Unchanged Time of 2ND Reevaluation: 14:47 Reevaluation 2ND: Unchanged Patient Education/Counseling: Diagnosis, Treatment Family Education/Counseling: No Family Present Departure 1 Departure Time of Disposition: 14:47 Impression: Primary Impression: Diverticulosis of colon without diverticulitis Additional Impression: GI bleed Disposition: ADMITTED INPATIENT Condition: Guarded Discharged With: Self Critical Care Note Critical Care Time?: Yes (45 min-critical care time only) Critical care comment: Total critical care time: Approximately 36 minutes Due to a high probability of clinically significant, life threatening deterioration, the patient required my highest level of preparedness to intervene emergently and I personally spent this critical care time directly and personally managing the patient. This critical care time included obtaining a history; examining the patient; pulse oximetry; ordering and review of studies; arranging urgent treatment with development of a management plan; evaluation of patient's response to treatment; frequent reassessment; and, discussions with other providers. This critical care time was performed to assess and manage the high probability of imminent, life-threatening deterioration that could result in multi-organ failure. It was exclusive of separately billable procedures and treating other patients. Stability Stability form required: No Heart Score Heart Score: Heart Score Response (Comments) Value History N/A 0 EKG N/A 0 Age N/A 0 Risk Factors N/A 0 Troponin N/A 0 Total 0 I personally scribed for JOSE ELLIOTT MD (VI) on 11/05/24 at 13:33. Electronically submitted by Danny Graves ([email or web address]). I personally scribed for JOSE ELLIOTT MD (VI) on 11/05/24 at 14:32. Electronically submitted by Danny Graves ([email or web address]). JOSE ELLIOTT MD Nov 05, 2024 13:33
[2024-11-05 13:34] LABS: INR 0.98 (0.9-1.15); Partial Thromboplastin Time 24.6 SEC (24.5-34.5); Prothrombin Time 10.4 sec (9.3-11.8)
[2024-11-05] MEDS: HYDROmorphone HCL 2 MG/ML VL/or syr IV ONE (13:36)
[2024-11-05] MEDS: ONDANSETRON HCL 4 MG/2 ML VIAL IV ONE (13:37)
[2024-11-05] MEDS: IOHEXOL 300 MG/ML 100ML BOTTLE IJ ONE (13:58)
--- NOTE | 2024-11-05 14:26 | DVH ---
Exam: CT CT AB PEL WITH IV CON ONLY History: LLQ pain, bleeding Comparison Study: None available at time of dictation. Contrast: Type of contrast: Omnipaque 300 Contrast injected: 80 mL Contrast wasted: 0 TECHNIQUE: A digital engine lathe operator image was obtained. During the uneventful, intravenous administration of c ontrast material, multislice data acquisition was obtained through the abdomen and pelvis. The data s et was subsequently reconstructed into axial images. Images were reviewed on a work station using a c ombination of axial and multiplanar using a variety of window levels and settings. Radiation Dose Information: CT Dose: CTDI volume is 23.42 mGy. Dose-length product is 1250.17 mGy*cm FINDINGS: Lung Bases: No acute or significant lung base finding. Normal heart size. No pleural or pericardial effusion. Liver: The liver is normal in size. No focal lesions. Normal hepatic vascular enhancement. Gallbladder and Biliary Tree: Gallbladder has been surgically removed. Spleen: Unremarkable Pancreas: The pancreas is normal in appearance without focal lesions or abnormal enhancement. Adrenal Glands: Unremarkable Kidneys: Kidneys demonstrate normal symmetric enhancement without focal lesions, calculi or hydroneph rosis. Bladder: Unremarkable Bowel: The stomach is grossly normal in appearance. Small bowel and colon are normal in caliber and d istribution. Diverticulosis throughout the colon from the right colon to the sigmoid colon. There is no free air or free fluid. The appendix is not visualized; however, no secondary findings of acute ap pendicitis identified. Ascites: Absent Lymphadenopathy: No mesenteric, retroperitoneal or periportal lymphadenopathy. Abdominal Wall and Mesentery: Unremarkable. Vasculature: The visualized abdominal aorta is normal in size and caliber. Abdominal and pelvic vess els demonstrate normal enhancement. Pelvic Organs: Unremarkable Musculoskeletal: No aggressive focal bony lesions, acute fractures or dislocation. Bony spondylosis a nd degenerative disc changes in the lumbar spine most notably from L3 through L5. Soft tissues: Unremarkable. IMPRESSION: 1. Diverticulosis throughout the colon from the right colon the sigmoid colon. There is no free air o r free fluid. 2. Gallbladder is been surgically removed. 3. Bony spondylosis and degenerative disc changes worse from L3 through L5. 4. All CT scans at this medical facility are performed using dose modulation techniques as appropriate t o a performed exam including the following: Automated exposure control was utilized; adjustment of th e MA and/or KV according to patient size; and use of iterative reconstruction technique.
[2024-11-05 20:00] VITALS: BP 121/81; TEMP 98.1
[2024-11-05 20:28] VITALS: PULSE 89; RESP 16; O2SAT 98
[2024-11-05] MEDS: OXYCODONE W/ ACETAMINOPHEN 5/325MG TABLET PO ONE ×2 (20:40→20:41)
[2024-11-05] MEDS ORDERED: DOCUSATE SOD 100 MG CAP PO PRN (21:45)
[2024-11-05] MEDS ORDERED: ONDANSETRON HCL 4 MG/2 ML VIAL IV PRN (21:45)
[2024-11-05] MEDS ORDERED: hydrALAZINE HCL 20 MG/ML VL IV PRN (21:45)
[2024-11-05] MEDS ORDERED: ACETAMINOPHEN 325 MG TAB PO PRN (21:45)
[2024-11-05] MEDS ORDERED: HYDROcodone-ACET 5/325MG TAB PO PRN (21:45)
[2024-11-05] MEDS: SODIUM CHLOR 0.9% PF (SALINE LOCK) 10ML VIAL/SYR IV SCH (22:00)
--- NOTE | 2024-11-05 22:41 | DVHHP2 ---
History of Present Illness Reason for Visit: GI bleed History of Present Illness The patient is a 58-year-old female with multiple past medical history including COPD, seizures, AK, and hypertension who presented to [facility] ED with complaint of GI bleed. Patient reports she has been having bloody stools for approximately 1 week duration. Patient reports symptoms progressively get worse with diffuse abdominal pain, rating 10/10 numeric scale, constant, getting worse that prompted this visit. Patient states she was scheduled to have part of bowel removed due to the diverticulitis but states due to abnormal vitals, her surgery was cancelled. Patient patient was seen and evaluated in the ED, laboratory data shows WBC 3.8, platelets 176, sodium 140, potassium 4.0, BUN 15, creatinine 0.95, GFR 69, glucose 108, AST 67, ALT 41, albumin 9.0. Abdomen/pelvis CT revealing diverticulosis throughout the colon from the right colon, the sigmoid colon, gallbladder has been surgically removed. Please see medication orders section in the computer. On my assessment, patient denied chest pain, no headache, no dizziness, abdominal pain at this moment, no diarrhea, nausea, no vomiting, fever, no chills. Patient was admitted for further evaluation and medical management. Past Medical History Asthma, COPD, High Lipids, HTN, AK, Seizures, Diverticulitis Past Surgical History BTL, Cholecystectomy, Tonsillectomy Family History Reviewed, noncontributory to the management of this case. Past Social History The patient lives at home, smokes cigarettes, drinks alcohol occasionally, uses marijuana. Review of Systems Constitutional: No: Fever, Chills, Sweats, Weakness, Malaise, Other Eyes: No: Pain, Vision change, Conjunctivae inflammation, Eyelid inflammation, Other, Redness ENT: No: Ear pain, Ear discharge, Nose pain, Nose discharge, Nose congestion, Mouth pain, Mouth swelling, Throat pain, Throat swelling, Other Respiratory: No: Cough, Dry, Shortness of breath, SOB with excertion, Wheezing, Hemoptysis, Pleuritic Pain, Sputum, Wheezing, Other Cardiovascular: No: Chest Pain, Palpitations, Orthopnea, Paroxysmal Noc. Dyspnea, Edema, Lt Headedness, Other Gastrointestinal: Abdominal Pain, Melena, Other (Blood streaked bowel); No: Nausea, Vomiting, Diarrhea, Constipation, Hematochezia Genitourinary: No Dysuria, No Frequency, No Incontinence, No Hematuria, No Retention, No Other Musculoskeletal: No: other, neck pain, shoulder pain, arm pain, back pain, hand pain, leg pain, foot pain Skin: No: Rash, Lesions, Jaundice, Bruising, Other Neurological: No: Weakness, Numbness, Incoordination, Change in speech, Confusion, Seizures, Other Allergies: Coded Allergies: Penicillins (Verified Allergy, Severe, ANAPHYLAXIS, SWELLING OF AIR WAY, 11/02/23) SPOKE TO PT AT BEDSIDE 11-02-2023. Patient states she had a severe reaction to PCN as a child and again as an adult a few years ago. Pt described experiencing closing of the airways, red hives on her body, swelling of the face, and requiring administration of Epinephrine. Pt has received Augmentin and Ampicillin in the past and experienced the same reactions. However, patient has taken Keflex PO before and has tolerated it just fine. Ketorolac Tromethamine (Verified Allergy, Unknown, 08/31/17) Shellfish Allergy (Verified Allergy, Unknown, 12/21/16) Medications Current Medications Medications Dose Ordered Sig/Mel Route Start Time Stop Time Status Last Admin Dose Admin Pantoprazole Sodium 40 mg BID IV 11/05/24 22:00 Hydralazine HCl 10 mg Q6HP PRN IV 11/05/24 21:45 Sodium Chloride 10 ml Q8HR IV 11/05/24 22:00 11/05/24 22:00 10 ML Acetaminophen/ Hydrocodone Bitart 1 tab Q4HP PRN PO 11/05/24 21:45 Ondansetron HCl 4 mg Q4HP PRN IV 11/05/24 21:45 Docusate Sodium 100 mg BIDPRN PRN PO 11/05/24 21:45 Acetaminophen 650 mg Q6HP PRN PO 11/05/24 21:45 Exam Vital Signs Vital Signs Date Time Temp Pulse Resp B/P (MAP) Pulse Ox O2 Delivery O2 Flow Rate FiO2 11/05/24 20:28 89 16 98 Room Air* 0 21 11/05/24 20:00 98.1 121/81 (94) 98.1 General Appearance: Alert, Oriented X3, Cooperative, No acute distress HEENT: Atraumatic, PERRLA, EOMI, Mucous membr. moist/pink Respiratory: Clear to auscultation, Normal air movement Cardiovascular: Regular rate, Normal S1, Normal S2, No murmurs Abdominal: Normal bowel sounds, Soft, No tenderness, No hepatospenomegaly, No masses Extremities: No clubbing, No cyanosis, No edema, Normal pulses, No tenderness/swelling Skin: No rashes, No breakdown, No significant lesion Neuro: Normal gait, Normal speech, Strength at 5/5 X4 ext, Normal tone, Sensation intact, Cranial nerves 3-12 NL, Reflexes 2+ Psych/Mental Status: Mental status NL, Mood NL Labs/Xrays Labs Test 11/05/24 12:45 Range/Units White Blood Count 3.8 L 4.4-10.8 10^3/uL Red Blood Count 4.22 4.0-5.20 10^6/uL Hemoglobin 14.2 12.2-16.2 g/dL Hematocrit 41.6 36.0-46.0 % Mean Corpuscular Volume 98.5 80.0-100.0 fL Mean Corpuscular Hemoglobin 33.6 H 28.0-32.0 pg Mean Corpuscular Hemoglobin Concent 34.1 32.0-36.0 g/dL Red Cell Distribution Width 13.6 11.8-14.3 % Platelet Count 176 140-450 10^3/uL Mean Platelet Volume 7.2 6.9-10.8 fL Neutrophils (%) (Auto) 55.9 37.0-80.0 % Lymphocytes (%) (Auto) 33.8 10.0-50.0 % Monocytes (%) (Auto) 6.6 0.0-12.0 % Eosinophils (%) (Auto) 2.5 0.0-7.0 % Basophils (%) (Auto) 1.2 0.0-2.0 % Neutrophils # (Auto) 2.2 1.6-8.6 10 ^3/uL Lymphocytes # (Auto) 1.3 0.4-5.4 10 ^3/uL Monocytes # (Auto) 0.3 0-1.3 10 ^3/uL Eosinophils # (Auto) 0.1 0-0.8 10 ^3/uL Basophils # (Auto) 0 0-0.2 10 ^3/uL Nucleated Red Blood Cells 0.0 % Prothrombin Time 10.4 9.3-11.8 sec Prothrombin Time INR 0.98 0.9-1.15 Activated Partial Thromboplast Time 24.6 24.5-34.5 SEC Sodium Level 140 136-145 mmol/L Potassium Level 4.0 3.5-5.1 mmol/L Chloride Level 104 98-107 mmol/L Carbon Dioxide Level 27 20-31 mmol/L Anion Gap 9 5-15 Blood Urea Nitrogen 15 9-23 mg/dL Creatinine 0.95 0.550-1.02 mg/dL Glomerular Filtration Rate Calc 69 >90 mL/min BUN/Creatinine Ratio 15.8 10.0-20.0 Serum Glucose 108 H 74-106 mg/dL Calcium Level 10.4 8.7-10.4 mg/dL Total Bilirubin 0.6 0.2-1.0 mg/dL Aspartate Amino Transferase (AST) 67 H 13-40 U/L Alanine Aminotransferase (ALT) 41 H 7-40 U/L Alkaline Phosphatase 70 46-116 U/L Total Protein 7.5 5.7-8.2 g/dL Albumin 5.0 H 3.2-4.8 g/dL PATIENT: IVAN ARAMBULA ACCT: [id number] UNIT: [id number] : 1965 LOC: ER ROOM / BED: / AGE / SEX: 58 / F ADM STATUS: REG ER SERVICE 1231 ORDERING PHYSICIAN: JOSE ELLIOTT MD PROCEDURE(s): ABPLIV - CT AB PEL WITH IV CON ONLY REASON: LLQ pain, bleeding ORDER NUMBER(s): [id number], ACCESSION NUMBER(s): [id number] Exam: CT CT AB PEL WITH IV CON ONLY History: LLQ pain, bleeding Comparison Study: None available at time of dictation. Contrast: Type of contrast: Omnipaque 300 Contrast injected: 80 mL Contrast wasted: 0 TECHNIQUE: A digital intensive care anaesthetist image was obtained. During the uneventful, intravenous administration of contrast material, multislice data acquisition was obtained through the abdomen and pelvis. The data set was subsequently reconstructed into axial images. Images were reviewed on a work station using a combination of axial and multiplanar using a variety of window levels and settings. Radiation Dose Information: CT Dose: CTDI volume is 23.42 mGy. Dose-length product is 1250.17 mGy*cm FINDINGS: Lung Bases: No acute or significant lung base finding. Normal heart size. No pleural or pericardial effusion. Liver: The liver is normal in size. No focal lesions. Normal hepatic vascular enhancement. Gallbladder and Biliary Tree: Gallbladder has been surgically removed. Spleen: Unremarkable Pancreas: The pancreas is normal in appearance without focal lesions or abnormal enhancement. Adrenal Glands: Unremarkable Kidneys: Kidneys demonstrate normal symmetric enhancement without focal lesions, calculi or hydronephrosis. Bladder: Unremarkable Bowel: The stomach is grossly normal in appearance. Small bowel and colon are normal in caliber and distribution. Diverticulosis throughout the colon from the right colon to the sigmoid colon. There is no free air or free fluid. The appendix is not visualized; however, no secondary findings of acute appendicitis identified. Ascites: Absent Lymphadenopathy: No mesenteric, retroperitoneal or periportal lymphadenopathy. Abdominal Wall and Mesentery: Unremarkable. Vasculature: The visualized abdominal aorta is normal in size and caliber. Abdominal and pelvic vessels demonstrate normal enhancement. Pelvic Organs: Unremarkable Musculoskeletal: No aggressive focal bony lesions, acute fractures or dislocation. Bony spondylosis and degenerative disc changes in the lumbar spine most notably from L3 through L5. Soft tissues: Unremarkable. IMPRESSION: 1. Diverticulosis throughout the colon from the right colon the sigmoid colon. There is no free air or free fluid. 2. Gallbladder is been surgically removed. 3. Bony spondylosis and degenerative disc changes worse from L3 through L5. Assessment/Plan Assessment/Plan Diverticulosis of colon without diverticulitis GI bleed Generalized weakness Plan 1. Admit to telemetry unit 2. Breathing treatment 3. Pain control management 4. Management of fluids and electrolytes 5. Consultation for hospitalist 6. Diagnostic tests abdomen/pelvis CT 7. DVT prophylaxis-on SCDs 8. Repeat labs CBC, CMP in a.m. 9. Continue with current medical management 10. Treatment plan discussed with patient and RN. Patient verbalized understanding. Plan discussed with: Patient, Other (RN) My Orders Orders - DEREJE LUNDBERG DNP Procedure Category Date Status Time Pantoprazole PHA 11/05/24 In Process (Protonix) 22:00 Hydralazine Injection PHA 11/05/24 In Process (Apresoline Inject 21:45 * Gi Dvh Railroad Engineer CONS 11/05/24 Transmitted 21:38 Allergies NARDA 11/05/24 In Process 21:38 Code Status CODE 11/05/24 Transmitted 21:38 Sodium Chloride Lock PHA 11/05/24 In Process (Saline Lock Ns) 22:00 Oxygen Per Hour RT 11/05/24 Transmitted 21:38 Hydrocodone-Acet PHA 11/05/24 In Process 5/325mg Tab ([place] 21:45 Ondansetron Hcl PHA 11/05/24 In Process (Zofran) 21:45 Docusate Sodium PHA 11/05/24 In Process Capsule (Colace 21:45 Complete Blood Count LAB 11/06/24 Verified 04:00 Comprehensive LAB 11/06/24 Verified Metabolic Panel 04:00 Condition: Serious NARDA 11/05/24 In Process 21:38 Acetaminophen Tablet PHA 11/05/24 In Process (Tylenol Tablet) 21:45 Clear Liq Diet DIET 11/06/24 Transmitted Breakfast Bedrest With Bathroom NARDA 11/05/24 In Process Privileg 21:38 Sequential NARDA 11/05/24 In Process Compression Device Problem List: (1) Diverticulosis of colon without diverticulitis (2) GI bleed (3) Generalized weakness Date of Service: Nov 05, 2024 Billing Provider: DEREJE LUNDBERG DNP Common Visit Codes: 15859-[id number] INP/OBS CARE (HIGH) DEREJE LUNDBERG DNP Nov 05, 2024 22:41
[2024-11-05] MEDS ORDERED: MORPHINE SULFATE INJ 2 MG/ml SYRG IV PRN (22:45)
[2024-11-05] MEDS ORDERED: NITROGLYCERIN 0.4 MG SL TAB SL PRN (22:45)
[2024-11-05] MEDS: PANTOPRAZOLE 40 MG/10 ML VIAL INJ IV SCH (23:09)
== END 2024-11-05 23:10 | disposition left against medical advice (07) | DRG 244 ==
LOC: ER 11:30 → TELE 22:40
PROVIDERS: ADMIT Nurse Practitioner Family; ATTEND Nurse Practitioner Family
DX: K57.31 Diverticulosis of large intestine without perforation or abscess with bleeding (principal); F17.210 Nicotine dependence, cigarettes, uncomplicated; I10 Essential (primary) hypertension; Z53.9 Procedure and treatment not carried out, unspecified reason; J44.89 Other specified chronic obstructive pulmonary disease; Z88.0 Allergy status to penicillin; Z91.013 Allergy to seafood; Z90.49 Acquired absence of other specified parts of digestive tract; Z79.899 Other long term (current) drug therapy; Z88.8 Allergy status to other drugs, medicaments and biological substances
CPT/HCPCS: 36415; 74177; 80053; 85025; 85610; 85730; 86850; 86900; 86901; 96361; 96374; 96375; 99291; G0378; J2405; J2470

== ENCOUNTER 2025-03-09 14:37 | Inpatient (IN) | payer OTHER ==
[~2025-03-09] VITALS: Ht 241.3 cm; Wt 107.7 kg
--- NOTE | 2025-03-09 14:47 | ED.PDOC ---
History of Present Illness HPI Comments 59-year-old female with PMHx Diverticulitis presents with a chief complaint of abdominal pain with associated nausea, vomiting, and rectal bleeding. Patient states that her pain is localized to her periumbilical region, nonradiating, describes as cramping, and rates her pain a 10/10. Patient also reports that she is having rectal bleeding, but denies use of blood thinners. Patient states that last time she had this it was diverticulitis. Chief Complaint: Abdominal Pain Time Seen by MD: 14:41 Primary Care Provider: UNKNOWN Reviewed Notes: Nurses Notes, Medications, Allergies Allergies: Coded Allergies: Penicillins (Verified Allergy, Severe, ANAPHYLAXIS, SWELLING OF AIR WAY, 11/02/23) SPOKE TO PT AT BEDSIDE 11-02-2023. Patient states she had a severe reaction to PCN as a child and again as an adult a few years ago. Pt described experiencing closing of the airways, red hives on her body, swelling of the face, and requiring administration of Epinephrine. Pt has received Augmentin and Ampicillin in the past and experienced the same reactions. However, patient has taken Keflex PO before and has tolerated it just fine. Ketorolac Tromethamine (Verified Allergy, Unknown, 08/31/17) Shellfish Allergy (Verified Allergy, Unknown, 12/21/16) Home Meds Active Scripts Metronidazole (Flagyl) 500 Mg Tab, 1 TAB PO TID, #30 TAB Prov:GELACIO REYES MD 04/01/24 Levofloxacin Hemihydrate (LEVOFLOXACIN) 500 Mg Tab, 1 TAB PO DAILY, #10 TAB Prov:GELACIO REYES MD 04/01/24 Ondansetron (Zofran) 4 Mg Tab, 4 MG PO BID for 7 Days, #14 MG Prov:VIRGIL PATINO MD 09/18/22 Albuterol Sulfate (VENTOLIN MDI) 90 Mcg Ih, 2 PUFF IN Q6HP, #1 Prov:OLIVIER PRAJAPATI Pharmacist 07/08/20 Reported Medications Simvastatin (Simvastatin) 40 Mg Tab, 1 TAB PO 08/24/21 Amlodipine Besylate (Amlodipine Besylate) 5 Mg Tab, 1 TAB PO DAILYPRN 08/24/21 Carisoprodol (Carisoprodol) 350 Mg Tab, 1 TAB PO BIDP PRN for MUSCLE SPASMS, #60 TAB 07/08/20 Albuterol Sulfate (Albuterol Sulfate) 0.083 % Neb, 1 VIAL NEB Q4HPRN, #50 VIAL 07/08/20 Lisinopril (Lisinopril) 20 Mg Tab, 1 TAB PO DAILYP, #30 TAB 5 Refills 07/08/20 Information Source: Patient Mode of Arrival: Ambulatory Severity: Moderate Timing: Days Duration: Since onset Prehospital treatment: None Past Medical History PAST MEDICAL HISTORY: Asthma, COPD, High Lipids, HTN, [place], Seizures Surgical History: BTL, Cholecystectomy, Tonsillectomy MEDICAL ASSOCIATE History: No Pertinent MEDICAL ASSOCIATE History Family History Family History: No family hx of Cancer, No family hx of DM Social History Smoker: Cigarettes Alcohol: Occasionally Drugs: Marijuana Lives In: Home Constitutional: denies: chills, diaphoresis, fatigue, fever, malaise, sweats, weakness, others EENTM: denies: blurred vision, double vision, ear bleeding, ear discharge, ear drainage, ear pain, ear ringing, eye pain, eye redness, hearing loss, mouth pain, mouth swelling, nasal discharge, nose bleeding, nose congestion, nose pain, photophobia, tearing, throat pain, throat swelling, voice changes, others Respiratory: denies: cough, hemoptysis, orthopnea, SOB at rest, shortness of breath, SOB with excertion, stridor, wheezing, others Cardiovascular: denies: chest pain, dizzy spells, diaphoresis, Dyspnea on exertion, edema, irregular heart beat, left arm pain, lightheadedness, palpitations, PND, syncope, others Gastrointestinal: reports: abdominal pain, nausea, rectal bleeding, vomiting; denies: abdomen distended, blood streaked bowels, constipated, diarrhea, dysphagia, difficulty swallowing, hematemesis, melena, poor appetite, poor fluid intake, rectal pain, others Genitourinary: denies: abnormal vagina bleeding, burning, dyspareunia, dysuria, flank pain, frequency, hematuria, incontinence, pain, , vagina discharge, urgency, others Neurological: denies: dizziness, fainting, headache, left sided numbness, left sided weakness, numbness, paresthesia, pre-existing deficit, right sided numbness, right sided weakness, seizure, speech problems, tingling, tremors, weakness, others Musculoskeletal: denies: back pain, gout, joint pain, joint swelling, muscle pain, muscle stiffness, neck pain, others Integumetry: denies: bruises, change in color, change in hair/nails, dryness, laceration, lesions, lumps, rash, wounds, others Allergic/Immunocompromised: denies: Difficulty Healing, Frequent Infections, Hives, Itching, others Hematologic/Lymphatic: denies: anemia, blood clots, easy bleeding, easy bruising, swollen glands, others Endocrine: denies: excessive hunger, excessive sweating, excessive thirst, excessive urination, flushing, intolerance to cold, intolerance to heat, unexplained weight gain, unexplained weight loss, others Psychiatric: denies: anxiety, bipolar disorder, depression, hopeless, panic disorder, schizophrenia, sleepless, suicidal, others All Other Systems: Reviewed and Negative Physical Exam General Appearance: Moderate Distress HEENT: Normal ENT Inspection, Pharynx Normal, TMs Normal Neck: Full Range of Motion, Non-Tender, Normal, Normal Inspection Respiratory: Chest Non-Tender, Lungs Clear, No Accessory Muscle Use, No Respiratory Distress, Normal Breath Sounds Cardiovascular: No Edema, No JVD, No Murmur, No Gallop, Normal Peripheral Pulses, Regular Rate/Rhythm Breast Exam: Deferred Gastrointestinal: Diffuse, No Organomegaly, No Pulsatile Mass, Normal Bowel Sounds, Soft, Tenderness Genitalia: Deferred Pelvic: Deferred Rectal: Deferred Extremities: No calf tenderness, Normal capillary refill, Normal inspection, Normal range of motion, Non-tender, No pedal edema Musculoskeletal : Apperance: Normal Neurologic: Alert, materials supervisor II-XII nml as Tested, No Motor Deficits, Normal Affect, Normal Mood, No Sensory Deficits Cerebellar Function: Normal Reflexes: Normal Skin: Dry, Normal Color, Warm Lymphatic: No Adenopathy Was a procedure done? Was a procedure done?: No Differential Dx Considerations may include: Diverticulitis, appendicitis, generalized weakness, electrolyte imbalance X-Ray, Labs, Meds, VS Vital Signs Date Time Temp Pulse Resp B/P (MAP) Pulse Ox O2 Delivery O2 Flow Rate FiO2 03/09/25 15:30 96 19 99 Room Air* 0 21 03/09/25 15:30 98.7 99 19 128/96 (107) 96 98.7 03/09/25 15:29 99 19 128/96 03/09/25 14:53 97.6 100 18 178/96 (123) 95 97.6 Lab Test 03/09/25 14:51 Range/Units White Blood Count 7.5 4.4-10.8 10^3/uL Red Blood Count 4.81 4.0-5.20 10^6/uL Hemoglobin 15.0 12.2-16.2 g/dL Hematocrit 44.1 36.0-46.0 % Mean Corpuscular Volume 91.7 80.0-100.0 fL Mean Corpuscular Hemoglobin 31.2 28.0-32.0 pg Mean Corpuscular Hemoglobin Concent 34.1 32.0-36.0 g/dL Red Cell Distribution Width 13.3 11.8-14.3 % Platelet Count 208 140-450 10^3/uL Mean Platelet Volume 7.0 6.9-10.8 fL Neutrophils (%) (Auto) 68.7 37.0-80.0 % Lymphocytes (%) (Auto) 24.2 10.0-50.0 % Monocytes (%) (Auto) 5.0 0.0-12.0 % Eosinophils (%) (Auto) 0.9 0.0-7.0 % Basophils (%) (Auto) 1.2 0.0-2.0 % Neutrophils # (Auto) 5.1 1.6-8.6 10 ^3/uL Lymphocytes # (Auto) 1.8 0.4-5.4 10 ^3/uL Monocytes # (Auto) 0.4 0-1.3 10 ^3/uL Eosinophils # (Auto) 0.1 0-0.8 10 ^3/uL Basophils # (Auto) 0.1 0-0.2 10 ^3/uL Nucleated Red Blood Cells 0.1 % Sodium Level 138 136-145 mmol/L Potassium Level 4.4 3.5-5.1 mmol/L Chloride Level 105 98-107 mmol/L Carbon Dioxide Level 23 20-31 mmol/L Anion Gap 10 5-15 Blood Urea Nitrogen 11 9-23 mg/dL Creatinine 0.80 0.550-1.02 mg/dL Glomerular Filtration Rate Calc 84 >90 mL/min BUN/Creatinine Ratio 13.8 10.0-20.0 Serum Glucose 101 74-106 mg/dL Calcium Level 10.2 8.7-10.4 mg/dL Total Bilirubin 0.6 0.2-1.0 mg/dL Aspartate Amino Transferase (AST) 53 H 13-40 U/L Alanine Aminotransferase (ALT) 35 7-40 U/L Alkaline Phosphatase 72 46-116 U/L Total Protein 8.2 5.7-8.2 g/dL Albumin 5.1 H 3.2-4.8 g/dL Lipase 39 12-53 U/L Current Medications Medications (Trade) Dose Ordered Sig/Mel Route Start Time Stop Time Status Last Admin Ondansetron HCl (Zofran) 4 mg ONCE ONCE IV 03/09/25 14:45 03/09/25 14:46 DC 03/09/25 15:28 Morphine Sulfate 4 mg ONCE ONCE IV 03/09/25 14:45 03/09/25 14:46 DC 03/09/25 15:29 Sodium Chloride 500 ml @ 500 mls/hr Q1H ONCE IVB 03/09/25 14:45 03/09/25 15:44 DC 03/09/25 15:28 CAT scan of the abdomen and pelvis shows: IMPRESSION: Severe colonic diverticulosis with moderate descending colonic diverticulitis. Hepatic steatosis and hepatomegaly. The patient was given morphine 4 mg IV push for the pain The patient was given Zofran 4 mg IV push for the nausea The patient was given a bolus of normal saline at 500 cc The patient's CBC is within normal limits The chemistry panel is within normal limits The patient will be admitted at this time The patient understands and agrees with the management. Images Reviewed?: Images reviewed and evaluated by me Time of 1ST Reevaluation: 15:11 Reevaluation 1ST: Unchanged Patient Education/Counseling: Diagnosis, Treatment, Prognosis Family Education/Counseling: No Family Present Departure 1 Departure Time of Disposition: 15:58 Impression: Primary Impression: Intractable abdominal pain Disposition: 09 ADMITTED INPATIENT Admit to: Med Surg Condition: Fair Critical Care Note Critical Care Time?: No Stability Stability form required: Yes Unstable for transfer: ED Physician Assesment (Clinical assesment) Heart Score Heart Score: Heart Score Response (Comments) Value History N/A 0 EKG N/A 0 Age N/A 0 Risk Factors N/A 0 Troponin N/A 0 Total 0 I personally scribed for ZORAN CURRY MD ([email or web address]) on 03/09/25 at 14:47. Electronically submitted by Philip Perez [email or web address]). ZORAN CURRY MD March 09, 2025 14:47
[2025-03-09 15:08] LABS: Basophils # (auto) 0.1 10 ^3/uL (0-0.2); Basophils % (auto) 1.2 % (0.0-2.0); Eosinophils # (auto) 0.1 10 ^3/uL (0-0.8); Eosinophils % (auto) 0.9 % (0.0-7.0); Hematocrit 44.1 % (36.0-46.0); Lymphocytes # (auto) 1.8 10 ^3/uL (0.4-5.4); Lymphocytes % (auto) 24.2 % (10.0-50.0); Mean Corpuscular Hemoglobin 31.2 pg (28.0-32.0); Mean Corpuscular Hgb Conc. 34.1 g/dL (32.0-36.0); Mean Corpuscular Volume 91.7 fL (80.0-100.0); Monocytes # (auto) 0.4 10 ^3/uL (0-1.3); Neutrophils # (auto) 5.1 10 ^3/uL (1.6-8.6); Neutrophils % (auto) 68.7 % (37.0-80.0); Nucleated Red Blood Cells % 0.1 %; Platelet Count (auto) 208 10^3/uL (140-450); Red Blood Cells 4.81 10^6/uL (4.0-5.20); Red Cell Distribution Width 13.3 % (11.8-14.3); White Blood Cell 7.5 10^3/uL (4.4-10.8)
[2025-03-09 15:26] LABS: Alanine Aminotransferase 35 U/L (7-40); Albumin 5.1 g/dL (3.2-4.8); Alkaline Phosphatase 72 U/L (46-116); Anion Gap 10 (5-15); Aspartate Aminotransferase 53 U/L (13-40); BUN/Creatinine Ratio 13.8 (10.0-20.0); Bilirubin, Total 0.6 mg/dL (0.2-1.0); Blood Urea Nitrogen 11 mg/dL (9-23); Calcium 10.2 mg/dL (8.7-10.4); Carbon Dioxide 23 mmol/L (20-31); Chloride 105 mmol/L (98-107); Glucose 101 mg/dL (74-106); Lipase 39 U/L (12-53); Potassium 4.4 mmol/L (3.5-5.1); Sodium 138 mmol/L (136-145); Total Protein 8.2 g/dL (5.7-8.2)
[2025-03-09] MEDS: ONDANSETRON HCL 4 MG/2 ML VIAL IV ONE (15:28)
[2025-03-09] MEDS: SODIUM CHLORIDE 0.9% 500 ML IVB ONE (15:28)
[2025-03-09] MEDS: MORPHINE SULFATE 4 MG/ML SYR/VIAL IV ONE (15:29)
[2025-03-09 15:30] VITALS: PULSE 96; RESP 19; O2SAT 99
--- NOTE | 2025-03-09 15:31 | DVH ---
CT CT AB PEL WO CON-NO ORAL OR IV INDICATION: pain EXAM DATE: 03/09/2025 02:50 PM COMPARISON: CT CT AB PEL WO CON-NO ORAL OR IV on DOS: 03/28/24, CT CT AB PEL WO CON-NO ORAL OR IV on D OS: 11/01/23, CT ABD PELVIS WO CONTRAST on DOS: 09/17/22 RADIATION DOSE: CTDIvol: 20.77 mGy, DLP: 1092.21 mGy*cm PROCEDURE: Helical CT images were obtained of the abdomen and pelvis without IV contrast Sagittal and coronal reconstructions are provided. ORAL CONTRAST: None. ADDITIONAL IMAGES / REFORMATS: None All C T scans at this medical facility are performed using dose modulation techniques as appropriate to a p erformed exam including the following: Automated exposure control was utilized; adjustment of the MA and/or KV according to patient size; and use of iterative reconstruction technique. FINDINGS: LUNG BASE: Normal. LIVER: Hepatic steatosis. GALLBLADDER AND BILIARY TREE: No calcified gallstones. Normal caliber wall. No intra- or extrahepatic biliary ductal dilation. PANCREAS: Normal. SPLEEN: Normal. BOWEL: Severe colonic diverticulosis with moderate descending colonic diverticulitis. Normal appearin g appendix. ADRENALS: 0.9 cm right adrenal nodule. KIDNEYS AND URETER: Normal. BLADDER: Normal. REPRODUCTIVE ORGANS: Normal. LYMPH NODES:No lymphadenopathy. PERITONEUM: No ascites or free air. No other fluid collection. VESSELS: Scattered atherosclerotic calcifications are noted. RETROPERITONEUM: Normal. ABDOMINAL WALL: Normal. BONES: Scattered osseous degenerative changes are noted. IMPRESSION: Severe colonic diverticulosis with moderate descending colonic diverticulitis. Hepatic steatosis and hepatomegaly.
--- NOTE | 2025-03-09 16:23 | DVHHP2 ---
History of Present Illness Reason for Visit: Abdominal pain History of Present Illness 59-year-old female past medical history diverticulosis diverticulitis asthma COPD hyperlipidemia hypertension PA seizures surgical history BTL gallbladder surgery tonsillectomy chief complaint patient states he has been having lower abdominal pain has been going on for the last two days she also states she has a rectal bleeding with abdominal pain she states last time she had this issue she had diverticulitis and she was admitted for that she states she has not had a colonoscopy as of yet due to some heart issue she has been dealing with patient states the pain is in the right lower quadrant of her abdomen and it does radiate to the left side is a crampy bloating pain she is currently not on blood thinners she also states she has a rectal bleeding but there was no clots in the in the blood she denies any chest pain no shortness a breath no weakness no dizziness when evaluating patient's labs and imaging looks like normal saline was given CBC was unremarkable CMP unremarkable morphine and Zofran was provided CT scan of the abdomen pelvis shows severe diverticulitis hepatic steatosis and hepatomegaly with these findings we will admit and ask for General surgery evaluation we will also provide IV antibiotics NPO status and IV fluids Past Medical History See HPI above Past Surgical History See HPI above Family History Reviewed, non-contributory to the management of this case. Past Social History The patient lives at home, denies smoking, alcohol or illicit drugs abuse. Review of Systems Constitutional: No: Fever, Chills, Sweats, Weakness, Malaise, Other Eyes: No: Pain, Vision change, Conjunctivae inflammation, Eyelid inflammation, Other, Redness ENT: No: Ear pain, Ear discharge, Nose pain, Nose discharge, Nose congestion, Mouth pain, Mouth swelling, Throat pain, Throat swelling, Other Respiratory: No: Cough, Dry, Shortness of breath, SOB with excertion, Wheezing, Hemoptysis, Pleuritic Pain, Sputum, Wheezing, Other Cardiovascular: No: Chest Pain, Palpitations, Orthopnea, Paroxysmal Noc. Dyspnea, Edema, Lt Headedness, Other Gastrointestinal: Abdominal Pain; No: Nausea, Vomiting, Diarrhea, Constipation, Melena, Hematochezia, Other Genitourinary: No Dysuria, No Frequency, No Incontinence, No Hematuria, No Retention, No Other Musculoskeletal: No: other, neck pain, shoulder pain, arm pain, back pain, hand pain, leg pain, foot pain Skin: No: Rash, Lesions, Jaundice, Bruising, Other Neurological: No: Weakness, Numbness, Incoordination, Change in speech, Confusion, Seizures, Other Allergies: Coded Allergies: Penicillins (Verified Allergy, Severe, ANAPHYLAXIS, SWELLING OF AIR WAY, 11/02/23) SPOKE TO PT AT BEDSIDE 11-02-2023. Patient states she had a severe reaction to PCN as a child and again as an adult a few years ago. Pt described experiencing closing of the airways, red hives on her body, swelling of the face, and requiring administration of Epinephrine. Pt has received Augmentin and Ampicillin in the past and experienced the same reactions. However, patient has taken Keflex PO before and has tolerated it just fine. Ketorolac Tromethamine (Verified Allergy, Unknown, 08/31/17) Shellfish Allergy (Verified Allergy, Unknown, 12/21/16) Exam Vital Signs Vital Signs Date Time Temp Pulse Resp B/P (MAP) Pulse Ox O2 Delivery O2 Flow Rate FiO2 03/09/25 16:13 94 13 151/90 03/09/25 15:30 99 Room Air* 0 21 03/09/25 15:30 98.7 98.7 Labs/Xrays CT scan abdomen pelvis shows severe diverticulitis hepatic steatosis hepatomegaly I reviewed labs, imaging CT scan abdomen pelvis, EKG and all diagnostic studies on this patient from ED records and the medical chart Labs Test 03/09/25 14:51 Range/Units White Blood Count 7.5 4.4-10.8 10^3/uL Red Blood Count 4.81 4.0-5.20 10^6/uL Hemoglobin 15.0 12.2-16.2 g/dL Hematocrit 44.1 36.0-46.0 % Mean Corpuscular Volume 91.7 80.0-100.0 fL Mean Corpuscular Hemoglobin 31.2 28.0-32.0 pg Mean Corpuscular Hemoglobin Concent 34.1 32.0-36.0 g/dL Red Cell Distribution Width 13.3 11.8-14.3 % Platelet Count 208 140-450 10^3/uL Mean Platelet Volume 7.0 6.9-10.8 fL Neutrophils (%) (Auto) 68.7 37.0-80.0 % Lymphocytes (%) (Auto) 24.2 10.0-50.0 % Monocytes (%) (Auto) 5.0 0.0-12.0 % Eosinophils (%) (Auto) 0.9 0.0-7.0 % Basophils (%) (Auto) 1.2 0.0-2.0 % Neutrophils # (Auto) 5.1 1.6-8.6 10 ^3/uL Lymphocytes # (Auto) 1.8 0.4-5.4 10 ^3/uL Monocytes # (Auto) 0.4 0-1.3 10 ^3/uL Eosinophils # (Auto) 0.1 0-0.8 10 ^3/uL Basophils # (Auto) 0.1 0-0.2 10 ^3/uL Nucleated Red Blood Cells 0.1 % Sodium Level 138 136-145 mmol/L Potassium Level 4.4 3.5-5.1 mmol/L Chloride Level 105 98-107 mmol/L Carbon Dioxide Level 23 20-31 mmol/L Anion Gap 10 5-15 Blood Urea Nitrogen 11 9-23 mg/dL Creatinine 0.80 0.550-1.02 mg/dL Glomerular Filtration Rate Calc 84 >90 mL/min BUN/Creatinine Ratio 13.8 10.0-20.0 Serum Glucose 101 74-106 mg/dL Calcium Level 10.2 8.7-10.4 mg/dL Total Bilirubin 0.6 0.2-1.0 mg/dL Aspartate Amino Transferase (AST) 53 H 13-40 U/L Alanine Aminotransferase (ALT) 35 7-40 U/L Alkaline Phosphatase 72 46-116 U/L Total Protein 8.2 5.7-8.2 g/dL Albumin 5.1 H 3.2-4.8 g/dL Lipase 39 12-53 U/L Assessment/Plan Assessment/Plan acute diverticulitis no abscess found ct scan abd pelvis ordered cipro and flagyl for now ordered diluadid as needed for pain ordered gi consult npo for now ordered ivf chronic problems hepatic steatosis hepatomegaly asthma copd no exacerbation hld htn seizures fen/ppx npo for now ivf no hx of gerds or gi bleed no gi ppx no dvt ppx since pt ambulatory plan admit to medicine for iv antibiotics and pain management Plan discussed with: Patient Date of Service: March 09, 2025 Billing Provider: MCCORD,BONNIE M DNP Common Visit Codes: [id number] INP/OBS CARE (HIGH) BONNIE MCCORD DNP March 09, 2025 16:23
[2025-03-09] MEDS ORDERED: NITROGLYCERIN 0.4 MG SL TAB SL PRN (17:30)
[2025-03-09 18:50] VITALS: BP 112/78; PULSE 88; RESP 16; TEMP 98.2; O2SAT 95
[2025-03-09 19:44] LABS: Urine Bacteria None Seen /hpf (None Seen)
[2025-03-09 19:52] LABS: Urine Blood Negative /uL (Negative); Urine Clarity Clear (Clear); Urine Color Yellow (Yellow); Urine Hyaline Cast FEW /lpf (0 - 2); Urine Mucus FEW (None Seen); Urine Protein, UAD Negative (Negative); Urine Specific Gravity 1.024 (1.001-1.035); Urine Squamous Epithelial Cell FEW /hpf (<5); Urine Urobilinogen 2 mg/dL (Negative); Urine WBC 1 /HPF (0-5)
[2025-03-09] MEDS: HYDROmorphone HCL 2 MG/ML VL/or syr IV PRN (20:36)
[2025-03-09] MEDS: ALBUTEROL SULF 2.5 MG/0.5ML(0.5%) NEB SOLN NEB PRN (20:44)
[2025-03-09 20:45] VITALS: PULSE 91; RESP 18; O2SAT 94
[2025-03-09 20:49] VITALS: PULSE 90; RESP 18; O2SAT 99
[2025-03-09 21:00] VITALS: BP 119/69; PULSE 91; RESP 18; TEMP 98.8; O2SAT 94
[2025-03-09] MEDS: CIPROFLOXACIN 400MG/200ML 200 ML IV ONE (22:17)
[2025-03-10] VITALS (11 sets, daily range): BP systolic 122–155; BP diastolic 74–96; PULSE 61–88; RESP 17–19; TEMP 95.5–98.3; O2SAT 92–96
[2025-03-10] MEDS ORDERED: ALBUTEROL SULF HFA 90MCG INH 200DOSE IN SCH
[2025-03-10] MEDS ORDERED: ALBUTEROL SULF 2.5 MG/0.5ML(0.5%) NEB SOLN NEB SCH
[2025-03-10] MEDS: metroNIDAZOLE 500MG/100ML 100 ML IV ONE (00:02)
[2025-03-10] MEDS: ATORVASTATIN 20 MG TAB PO SCH (00:09)
[2025-03-10] MEDS: SODIUM CHLORIDE 0.9% 1,000 ML IV SCH (01:15)
[2025-03-10] MEDS: metroNIDAZOLE 500MG/100ML 100 ML IV SCH (05:52)
[2025-03-10 08:01] LABS: Basophils # (auto) 0 10 ^3/uL (0-0.2); Basophils % (auto) 0.8 % (0.0-2.0); Eosinophils # (auto) 0.1 10 ^3/uL (0-0.8); Eosinophils % (auto) 1.6 % (0.0-7.0); Hematocrit 38.2 % (36.0-46.0); Lymphocytes # (auto) 1.3 10 ^3/uL (0.4-5.4); Lymphocytes % (auto) 28.5 % (10.0-50.0); Mean Corpuscular Hemoglobin 31.3 pg (28.0-32.0); Mean Corpuscular Hgb Conc. 33.9 g/dL (32.0-36.0); Mean Corpuscular Volume 92.4 fL (80.0-100.0); Monocytes # (auto) 0.3 10 ^3/uL (0-1.3); Monocytes % (auto) 6.8 % (0.0-12.0); Neutrophils # (auto) 2.9 10 ^3/uL (1.6-8.6); Neutrophils % (auto) 62.3 % (37.0-80.0); Nucleated Red Blood Cells % 0.2 %; Platelet Count (auto) 156 10^3/uL (140-450); Red Blood Cells 4.14 10^6/uL (4.0-5.20); Red Cell Distribution Width 12.9 % (11.8-14.3); White Blood Cell 4.7 10^3/uL (4.4-10.8)
[2025-03-10] MEDS: amLODIPine BESYLATE 5 MG TAB PO SCH (08:06)
[2025-03-10] MEDS: LISINOPRIL 20 MG TAB PO SCH (08:06)
[2025-03-10 08:10] LABS: Alanine Aminotransferase 29 U/L (7-40); Albumin 4.5 g/dL (3.2-4.8); Alkaline Phosphatase 70 U/L (46-116); Anion Gap 8 (5-15); Aspartate Aminotransferase 33 U/L (13-40); BUN/Creatinine Ratio 21.7 (10.0-20.0); Bilirubin, Total 0.9 mg/dL (0.2-1.0); Blood Urea Nitrogen 13 mg/dL (9-23); Calcium 10.1 mg/dL (8.7-10.4); Carbon Dioxide 26 mmol/L (20-31); Chloride 105 mmol/L (98-107); Glucose 102 mg/dL (74-106); Potassium 4.2 mmol/L (3.5-5.1); Sodium 139 mmol/L (136-145); Total Protein 6.9 g/dL (5.7-8.2)
[2025-03-10] MEDS: CIPROFLOXACIN 400MG/200ML 200 ML IV SCH (10:42)
[2025-03-10] MEDS: ONDANSETRON HCL 4 MG/2 ML VIAL IV PRN (15:57)
--- NOTE | 2025-03-10 17:08 | DVHINCON2 ---
Date of service: March 10, 2025 History of Present Illness 59-year-old female with a previous history of diverticulitis readmitted secondary to periumbilical abdominal pain radiating to the left side. Patient also reports rectal bleeding associated with the pain. Patient denies any fevers, chills, nausea or vomiting. Past Medical History History of diverticulitis. Asthma. COPD. Hypertension. PA. Seizure disorder. Past Surgical History Cholecystectomy. BTL. Family History: Cancer G8 MOTHER (Breast cancer) G8 FATHER (lung cancer) uncle Cervical cancer 19 CHILD Chronic obstructive lung disease (situation) G8 FATHER FH: breast cancer G8 SISTER aunt Family history: Cardiovascular disease G8 FATHER ( from CHF) Family History Noncontributory Social History Denies alcohol, tobacco, IV drug use Allergies: Coded Allergies: Penicillins (Verified Allergy, Severe, ANAPHYLAXIS, SWELLING OF AIR WAY, 11/02/23) SPOKE TO PT AT BEDSIDE 11-02-2023. Patient states she had a severe reaction to PCN as a child and again as an adult a few years ago. Pt described experiencing closing of the airways, red hives on her body, swelling of the face, and requiring administration of Epinephrine. Pt has received Augmentin and Ampicillin in the past and experienced the same reactions. However, patient has taken Keflex PO before and has tolerated it just fine. Ketorolac Tromethamine (Verified Allergy, Unknown, 08/31/17) Shellfish Allergy (Verified Allergy, Unknown, 12/21/16) Home Meds Active Scripts Albuterol Sulfate (VENTOLIN MDI) 90 Mcg Ih, 2 PUFF IN Q6HP, #1 Prov:OLIVIER PRAJAPATI Pharmacist 07/08/20 Reported Medications Simvastatin (Simvastatin) 40 Mg Tab, 1 TAB PO 08/24/21 Amlodipine Besylate (Amlodipine Besylate) 5 Mg Tab, 1 TAB PO DAILYPRN 08/24/21 Carisoprodol (Carisoprodol) 350 Mg Tab, 1 TAB PO BIDP PRN for MUSCLE SPASMS, #60 TAB 07/08/20 Albuterol Sulfate (Albuterol Sulfate) 0.083 % Neb, 1 VIAL NEB Q4HPRN, #50 VIAL 07/08/20 Lisinopril (Lisinopril) 20 Mg Tab, 1 TAB PO DAILYP, #30 TAB 5 Refills 07/08/20 Current Medications Current Medications Medications (Trade) Dose Ordered Sig/Mel Route PRN Reason Start Time Stop Time Status Last Admin Sodium Chloride 1,000 ml @ 120 mls/hr Q8H20M IV 03/09/25 17:30 03/10/25 01:15 Ondansetron HCl (Zofran) 4 mg Q4HP PRN IV NAUSEA / VOMITING 03/09/25 17:30 03/10/25 15:57 Nitroglycerin (Ntrostat Sublingual) 0.4 mg Q5MINP PRN SL FOR CHEST PAIN 03/09/25 17:30 Ciprofloxacin 200 ml @ 200 mls/hr Q12HR IV 03/10/25 10:00 03/10/25 10:42 Metronidazole 100 ml @ 100 mls/hr Q8HR IV 03/10/25 06:00 03/10/25 14:11 Hydromorphone HCl (Dilaudid Injection) 0.5 mg Q4HPRN PRN IV MODERATE PAIN (4-6 PAIN SCALE) 03/09/25 17:30 03/10/25 15:51 Albuterol (Ventolin Hfa) 90 mcg Q6HP IN 03/10/25 00:00 UNV Amlodipine Besylate (Norvasc Tablet) 5 mg DAILY PO 03/10/25 10:00 Carisoprodol (Soma Tablet) 350 mg BIDP PRN PO MUSCLE SPASMS 03/09/25 18:30 Lisinopril (Zestril Tablet) 20 mg DAILYP PO 03/10/25 10:00 Atorvastatin Calcium (Lipitor) 40 mg HS PO 03/09/25 22:00 03/10/25 00:09 Albuterol (Ventolin Medneb) 2.5 mg Q6HR NEB 03/10/25 00:00 03/09/25 19:12 DC Albuterol (Ventolin Medneb) 2.5 mg Q6HPRN PRN NEB SHORTNESS OF BREATH 03/10/25 00:00 03/09/25 20:44 Vital Signs Vital Signs Date Time Temp Pulse Resp B/P (MAP) Pulse Ox O2 Delivery O2 Flow Rate FiO2 03/10/25 15:51 80 18 127/87 03/10/25 13:00 97.4 92 97.4 03/10/25 08:00 Room Air* 0 21 Physical Exam GEN: Age-appropriate female in no acute distress. Alert. HEENT: Normocephalic atraumatic. Moist mucous membranes. Anicteric sclerae. CV: RRR Respiratory: CTAB ABD: Slightly obese abdomen with localized left sided tenderness to palpation with guarding. CT of the abdomen and pelvis: Descending colon diverticulitis. Labs/Diagnostic Data Labs Test 03/10/25 07:17 03/09/25 15:16 03/09/25 14:51 Range/Units White Blood Count 4.7 # 4.4-10.8 10^3/uL Red Blood Count 4.14 4.0-5.20 10^6/uL Hemoglobin 13.0 12.2-16.2 g/dL Hematocrit 38.2 # 36.0-46.0 % Mean Corpuscular Volume 92.4 80.0-100.0 fL Mean Corpuscular Hemoglobin 31.3 28.0-32.0 pg Mean Corpuscular Hemoglobin Concent 33.9 32.0-36.0 g/dL Red Cell Distribution Width 12.9 11.8-14.3 % Platelet Count 156 140-450 10^3/uL Mean Platelet Volume 7.2 6.9-10.8 fL Neutrophils (%) (Auto) 62.3 37.0-80.0 % Lymphocytes (%) (Auto) 28.5 10.0-50.0 % Monocytes (%) (Auto) 6.8 0.0-12.0 % Eosinophils (%) (Auto) 1.6 0.0-7.0 % Basophils (%) (Auto) 0.8 0.0-2.0 % Neutrophils # (Auto) 2.9 1.6-8.6 10 ^3/uL Lymphocytes # (Auto) 1.3 0.4-5.4 10 ^3/uL Monocytes # (Auto) 0.3 0-1.3 10 ^3/uL Eosinophils # (Auto) 0.1 0-0.8 10 ^3/uL Basophils # (Auto) 0 0-0.2 10 ^3/uL Nucleated Red Blood Cells 0.2 % Sodium Level 139 136-145 mmol/L Potassium Level 4.2 3.5-5.1 mmol/L Chloride Level 105 98-107 mmol/L Carbon Dioxide Level 26 20-31 mmol/L Anion Gap 8 5-15 Blood Urea Nitrogen 13 9-23 mg/dL Creatinine 0.60 0.550-1.02 mg/dL Glomerular Filtration Rate Calc 103 >90 mL/min BUN/Creatinine Ratio 21.7 H 10.0-20.0 Serum Glucose 102 74-106 mg/dL Calcium Level 10.1 8.7-10.4 mg/dL Total Bilirubin 0.9 0.2-1.0 mg/dL Aspartate Amino Transferase (AST) 33 13-40 U/L Alanine Aminotransferase (ALT) 29 7-40 U/L Alkaline Phosphatase 70 46-116 U/L Total Protein 6.9 5.7-8.2 g/dL Albumin 4.5 3.2-4.8 g/dL Urine Color Yellow Yellow Urine Clarity Clear Clear Urine pH 5.0 5.0-9.0 Urine Specific [place] 1.024 1.001-1.035 Urine Protein Negative Negative Urine Ketones Negative Negative Urine Blood Negative Negative /uL Urine Nitrite Negative Negative Urine Bilirubin Negative Negative Urine Urobilinogen 2 H Negative mg/dL Urine Leukocyte Esterase Negative Negative /uL Urine RBC <1 0 - 4 /hpf Urine Microscopic WBC 1 0-5 /HPF Urine Squamous Epithelial Cells Few <5 /hpf Urine Bacteria None seen None Seen /hpf Urine Hyaline Casts Few 0 - 2 /lpf Urine Mucus Few None Seen Urine Glucose Normal Normal mg/dL Lipase 39 12-53 U/L Assessment 1. Recurrent diverticulitis Plan/Recommendation 1. Continue with IV antibiotics. 2. Recommend elective GI follow up for possible colonoscopy. 3. Recommend outpatient elective colectomy for diverticulosis/diverticulitis. Plan discussed with: Patient NEDA LEIGH MD March 10, 2025 17:08
--- NOTE | 2025-03-10 18:59 | DVHPN2 ---
Subjective still having pain Changes from previous H/P or p: No Changes Eyes: No Pain, No Vision change, No Conjunctivae inflammation, No Eyelid inflammation, No Other, No Redness ENT: No Ear pain, No Ear discharge, No Nose pain, No Nose discharge, No Nose congestion, No Mouth pain, No Mouth swelling, No Throat pain, No Throat swelling, No Other Cardiovascular: No Chest Pain, No Palpitations, No Orthopnea, No Paroxysmal Noc. Dyspnea, No Edema, No Lt Headedness, No Other Respiratory: No Cough, No Dry, No Shortness of breath, No SOB with excertion, No Wheezing, No Hemoptysis, No Pleuritic Pain, No Sputum, No Other Gastrointestinal: No Nausea, No Vomiting; Abdominal Pain; No Diarrhea, No Constipation, No Melena, No Hematochezia, No Other Genitourinary: No Dysuria, No Frequency, No Incontinence, No Hematuria, No Retention, No Other Musculoskeletal: No other, No neck pain, No shoulder pain, No arm pain, No back pain, No hand pain, No leg pain, No foot pain Skin: No Rash, No Lesions, No Jaundice, No Bruising, No Other Objective Vitals Vital Signs Date Time Temp Pulse Resp B/P (MAP) Pulse Ox O2 Delivery O2 Flow Rate FiO2 03/10/25 17:00 97.5 73 17 155/96 (115) 95 97.5 03/10/25 08:00 Room Air* 0 21 Intake/Output Intake and Output 03/10/25 07:00 Intake Total 900 ml Balance 900 ml Intake Oral 0 ml IV Total 900 ml # Voids 2 General Appearance: Alert, Oriented X3 Cardiovascular: Regular rate, Normal S1, Normal S2 Abdomen: Normal bowel sounds, Soft Medications Current Medications Medications Dose Ordered Sig/Mel Route Start Time Stop Time Status Last Admin Dose Admin Sodium Chloride 1,000 ml @ 120 mls/hr Q8H20M IV 03/09/25 17:30 03/10/25 17:43 120 MLS/HR Ondansetron HCl 4 mg Q4HP PRN IV 03/09/25 17:30 03/10/25 15:57 4 MG Nitroglycerin 0.4 mg Q5MINP PRN SL 03/09/25 17:30 Ciprofloxacin 200 ml @ 200 mls/hr Q12HR IV 03/10/25 10:00 03/10/25 10:42 200 MLS/HR Metronidazole 100 ml @ 100 mls/hr Q8HR IV 03/10/25 06:00 03/10/25 14:11 100 MLS/HR Hydromorphone HCl 0.5 mg Q4HPRN PRN IV 03/09/25 17:30 03/10/25 15:51 0.5 MG Albuterol 90 mcg Q6HP IN 03/10/25 00:00 UNV Amlodipine Besylate 5 mg DAILY PO 03/10/25 10:00 Carisoprodol 350 mg BIDP PRN PO 03/09/25 18:30 Lisinopril 20 mg DAILYP PO 03/10/25 10:00 Atorvastatin Calcium 40 mg HS PO 03/09/25 22:00 03/10/25 00:09 40 MG Albuterol 2.5 mg Q6HPRN PRN NEB 03/10/25 00:00 03/09/25 20:44 2.5 MG Laboratory Results Laboratory Tests 03/10/25 07:17 Chemistry Test 03/10/25 07:17 Albumin 4.5 g/dL (3.2-4.8) Calcium Level 10.1 mg/dL (8.7-10.4) Total Protein 6.9 g/dL (5.7-8.2) LFT Test 03/10/25 07:17 Alanine Aminotransferase (ALT) 29 U/L (7-40) Alkaline Phosphatase 70 U/L (46-116) Aspartate Amino Transferase (AST) 33 U/L (13-40) Total Bilirubin 0.9 mg/dL (0.2-1.0) Urinalysis Test 03/09/25 15:16 Urine Color Yellow (Yellow) Urine Clarity Clear (Clear) Urine pH 5.0 (5.0-9.0) Urine Specific [place] 1.024 (1.001-1.035) Urine Protein Negative (Negative) Urine Ketones Negative (Negative) Urine Blood Negative /uL (Negative) Urine Nitrite Negative (Negative) Urine Bilirubin Negative (Negative) Urine Urobilinogen 2 mg/dL (Negative) H Urine Leukocyte Esterase Negative /uL (Negative) Urine RBC <1 /hpf (0 - 4) Urine Microscopic WBC 1 /HPF (0-5) Urine Squamous Epithelial Cells Few /hpf (<5) Urine Bacteria None seen /hpf (None Seen) Urine Hyaline Casts Few /lpf (0 - 2) Urine Mucus Few (None Seen) Urine Glucose Normal mg/dL (Normal) Assessment/Plan Assessment/Plan acute diverticulitis no abscess found ct scan abd pelvis ordered cipro and flagyl for now ordered diluadid as needed for pain ordered gi consult npo for now ordered ivf chronic problems hepatic steatosis hepatomegaly asthma copd no exacerbation hld htn seizures fen/ppx npo for now ivf no hx of gerds or gi bleed no gi ppx no dvt ppx since pt ambulatory Plan discussed with: Patient Date of Service: March 10, 2025 Billing Provider: POLLY CASPER MD Common Visit Codes: [id number] INP/OBS CARE(HIGH) POLLY CASPER MD March 10, 2025 18:59
[2025-03-11] VITALS (10 sets, daily range): BP systolic 145–188; BP diastolic 91–102; PULSE 73–85; RESP 16–18; TEMP 96.2–98.5; O2SAT 93–100
--- NOTE | 2025-03-11 11:12 | DVHPN2 ---
Progress Note - Dictate Date Seen: March 11, 2025 Medical Necessity Reason Pt with a Central, PICC or Fol: No Subjective E: no major events o/n. abd pain about the same. vital signs Vital Sign Date Time Temp Pulse Resp B/P (MAP) Pulse Ox O2 Delivery O2 Flow Rate FiO2 03/11/25 08:33 98.1 74 17 164/95 (118) 93 98.1 03/11/25 08:00 Room Air* 0 21 Total Intake and Output 03/10/25 03/10/25 03/11/25 15:00 23:00 07:00 Intake Total 200 ml 300 ml 100 ml Balance 200 ml 300 ml 100 ml medications Current Medications Medications Dose Ordered Sig/Mel Route Start Time Stop Time Status Last Admin Dose Admin Sodium Chloride 1,000 ml @ 120 mls/hr Q8H20M IV 03/09/25 17:30 03/11/25 06:42 120 MLS/HR Ondansetron HCl 4 mg Q4HP PRN IV 03/09/25 17:30 03/10/25 20:51 4 MG Nitroglycerin 0.4 mg Q5MINP PRN SL 03/09/25 17:30 Ciprofloxacin 200 ml @ 200 mls/hr Q12HR IV 03/10/25 10:00 03/11/25 09:13 200 MLS/HR Metronidazole 100 ml @ 100 mls/hr Q8HR IV 03/10/25 06:00 03/11/25 06:29 100 MLS/HR Hydromorphone HCl 0.5 mg Q4HPRN PRN IV 03/09/25 17:30 03/11/25 06:27 0.5 MG Albuterol 90 mcg Q6HP IN 03/10/25 00:00 UNV Amlodipine Besylate 5 mg DAILY PO 03/10/25 10:00 Carisoprodol 350 mg BIDP PRN PO 03/09/25 18:30 Lisinopril 20 mg DAILYP PO 03/10/25 10:00 Atorvastatin Calcium 40 mg HS PO 03/09/25 22:00 03/10/25 20:35 40 MG Albuterol 2.5 mg Q6HPRN PRN NEB 03/10/25 00:00 03/11/25 06:41 2.5 MG objective GEN: NAD ABD: RLQ TTP laboratory and microbiology Laboratory Tests 03/10/25 07:17 Test 03/10/25 07:17 Range/Units Serum Glucose 102 74-106 mg/dL Assessment/Plan A: 1. Recurrent diverticulitis P: 1. clear liquid diet. Plan discussed with: Patient NEDA LEIGH MD March 11, 2025 11:12
--- NOTE | 2025-03-11 17:50 | DVHPN2 ---
Subjective Pain much better Changes from previous H/P or p: No Changes Eyes: No Pain, No Vision change, No Conjunctivae inflammation, No Eyelid inflammation, No Other, No Redness ENT: No Ear pain, No Ear discharge, No Nose pain, No Nose discharge, No Nose congestion, No Mouth pain, No Mouth swelling, No Throat pain, No Throat swelling, No Other Cardiovascular: No Chest Pain, No Palpitations, No Orthopnea, No Paroxysmal Noc. Dyspnea, No Edema, No Lt Headedness, No Other Respiratory: No Cough, No Dry, No Shortness of breath, No SOB with excertion, No Wheezing, No Hemoptysis, No Pleuritic Pain, No Sputum, No Other Gastrointestinal: No Nausea, No Vomiting; Abdominal Pain; No Diarrhea, No Constipation, No Melena, No Hematochezia, No Other Genitourinary: No Dysuria, No Frequency, No Incontinence, No Hematuria, No Retention, No Other Musculoskeletal: No other, No neck pain, No shoulder pain, No arm pain, No back pain, No hand pain, No leg pain, No foot pain Skin: No Rash, No Lesions, No Jaundice, No Bruising, No Other Objective Vitals Vital Signs Date Time Temp Pulse Resp B/P (MAP) Pulse Ox O2 Delivery O2 Flow Rate FiO2 03/11/25 16:33 98.0 73 16 145/92 (109) 94 98.0 03/11/25 08:00 Room Air* 0 21 Intake/Output Intake and Output 03/11/25 07:00 Intake Total 600 ml Balance 600 ml Intake Oral 0 ml IV Total 600 ml # Voids 3 General Appearance: Alert, Oriented X3 Cardiovascular: Regular rate, Normal S1, Normal S2 Abdomen: Normal bowel sounds, Soft Medications Current Medications Medications Dose Ordered Sig/Mel Route Start Time Stop Time Status Last Admin Dose Admin Sodium Chloride 1,000 ml @ 120 mls/hr Q8H20M IV 03/09/25 17:30 03/11/25 06:42 120 MLS/HR Ondansetron HCl 4 mg Q4HP PRN IV 03/09/25 17:30 03/11/25 12:05 4 MG Nitroglycerin 0.4 mg Q5MINP PRN SL 03/09/25 17:30 Ciprofloxacin 200 ml @ 200 mls/hr Q12HR IV 03/10/25 10:00 03/11/25 09:13 200 MLS/HR Metronidazole 100 ml @ 100 mls/hr Q8HR IV 03/10/25 06:00 03/11/25 14:53 100 MLS/HR Hydromorphone HCl 0.5 mg Q4HPRN PRN IV 03/09/25 17:30 03/11/25 12:06 0.5 MG Albuterol 90 mcg Q6HP IN 03/10/25 00:00 UNV Amlodipine Besylate 5 mg DAILY PO 03/10/25 10:00 Carisoprodol 350 mg BIDP PRN PO 03/09/25 18:30 Lisinopril 20 mg DAILYP PO 03/10/25 10:00 Atorvastatin Calcium 40 mg HS PO 03/09/25 22:00 03/10/25 20:35 40 MG Albuterol 2.5 mg Q6HPRN PRN NEB 03/10/25 00:00 03/11/25 06:41 2.5 MG Laboratory Results Laboratory Tests 03/10/25 07:17 Urinalysis Test 03/09/25 15:16 Urine Color Yellow (Yellow) Urine Clarity Clear (Clear) Urine pH 5.0 (5.0-9.0) Urine Specific [place] 1.024 (1.001-1.035) Urine Protein Negative (Negative) Urine Ketones Negative (Negative) Urine Blood Negative /uL (Negative) Urine Nitrite Negative (Negative) Urine Bilirubin Negative (Negative) Urine Urobilinogen 2 mg/dL (Negative) H Urine Leukocyte Esterase Negative /uL (Negative) Urine RBC <1 /hpf (0 - 4) Urine Microscopic WBC 1 /HPF (0-5) Urine Squamous Epithelial Cells Few /hpf (<5) Urine Bacteria None seen /hpf (None Seen) Urine Hyaline Casts Few /lpf (0 - 2) Urine Mucus Few (None Seen) Urine Glucose Normal mg/dL (Normal) Assessment/Plan Assessment/Plan acute diverticulitis no abscess found ct scan abd pelvis IV abx Clear diet today surgery following chronic problems hepatic steatosis hepatomegaly asthma copd no exacerbation hld htn seizures fen/ppx npo for now ivf no hx of gerds or gi bleed no gi ppx no dvt ppx since pt ambulatory Plan discussed with: Patient My Orders Orders - POLLY CASPER MD Procedure Category Date Status Time Basic Metabolic Panel LAB 03/12/25 Verified 05:00 Basic Metabolic Panel LAB 03/13/25 Verified 05:00 Basic Metabolic Panel LAB 03/14/25 Verified 05:00 Basic Metabolic Panel LAB 03/15/25 Verified 05:00 Basic Metabolic Panel LAB 03/16/25 Verified 05:00 Basic Metabolic Panel LAB 03/17/25 Verified 05:00 Basic Metabolic Panel LAB 03/18/25 Verified 05:00 Complete Blood Count LAB 03/12/25 Verified 05:00 Complete Blood Count LAB 03/13/25 Verified 05:00 Complete Blood Count LAB 03/14/25 Verified 05:00 Complete Blood Count LAB 03/15/25 Verified 05:00 Complete Blood Count LAB 03/16/25 Verified 05:00 Complete Blood Count LAB 03/17/25 Verified 05:00 Complete Blood Count LAB 03/18/25 Verified 05:00 Date of Service: March 11, 2025 Billing Provider: POLLY CASPER MD Common Visit Codes: [id number] INP/OBS CARE(HIGH) POLLY CASPER MD March 11, 2025 17:50
[2025-03-12] VITALS (12 sets, daily range): BP systolic 117–148; BP diastolic 62–105; PULSE 65–86; RESP 16–18; TEMP 97–98.2; O2SAT 76–100
[2025-03-12 09:08] LABS: Basophils # (auto) 0 10 ^3/uL (0-0.2); Eosinophils # (auto) 0.1 10 ^3/uL (0-0.8); Eosinophils % (auto) 1.8 % (0.0-7.0); Hematocrit 38.4 % (36.0-46.0); Hemoglobin 13.1 g/dL (12.2-16.2); Lymphocytes % (auto) 29.9 % (10.0-50.0); Mean Corpuscular Hemoglobin 31.2 pg (28.0-32.0); Mean Corpuscular Hgb Conc. 34.2 g/dL (32.0-36.0); Mean Corpuscular Volume 91.3 fL (80.0-100.0); Monocytes # (auto) 0.2 10 ^3/uL (0-1.3); Monocytes % (auto) 6.8 % (0.0-12.0); Neutrophils % (auto) 60.5 % (37.0-80.0); Nucleated Red Blood Cells % 0.5 %; Platelet Count (auto) 166 10^3/uL (140-450); White Blood Cell 3.4 10^3/uL (4.4-10.8)
[2025-03-12 09:14] LABS: Chloride 105 mmol/L (98-107); Potassium 3.8 mmol/L (3.5-5.1); Sodium 139 mmol/L (136-145)
[2025-03-12 09:15] LABS: Anion Gap 5 (5-15); Carbon Dioxide 29 mmol/L (20-31)
[2025-03-12 09:20] LABS: BUN/Creatinine Ratio 9.4 (10.0-20.0); Glucose 104 mg/dL (74-106)
[2025-03-12 09:21] LABS: Blood Urea Nitrogen 6 mg/dL (9-23)
--- NOTE | 2025-03-12 14:52 | DVHPN2 ---
Progress Note - Dictate Date Seen: Mar 12, 2025 Medical Necessity Reason Pt with a Central, PICC or Fol: No Subjective E: no major events o/n. feels better. [place] po. vital signs Vital Sign Date Time Temp Pulse Resp B/P (MAP) Pulse Ox O2 Delivery O2 Flow Rate FiO2 03/12/25 13:00 98.2 65 16 140/83 (102) 98 98.2 03/12/25 10:43 Room Air 0.0 03/12/25 10:43 21 Total Intake and Output 03/11/25 03/11/25 03/12/25 15:00 23:00 07:00 Intake Total 300 ml 400 ml 1100 ml Balance 300 ml 400 ml 1100 ml medications Current Medications Medications Dose Ordered Sig/Mel Route Start Time Stop Time Status Last Admin Dose Admin Sodium Chloride 1,000 ml @ 120 mls/hr Q8H20M IV 03/09/25 17:30 03/11/25 19:30 120 MLS/HR Ondansetron HCl 4 mg Q4HP PRN IV 03/09/25 17:30 03/11/25 12:05 4 MG Nitroglycerin 0.4 mg Q5MINP PRN SL 03/09/25 17:30 Ciprofloxacin 200 ml @ 200 mls/hr Q12HR IV 03/10/25 10:00 03/12/25 09:54 200 MLS/HR Metronidazole 100 ml @ 100 mls/hr Q8HR IV 03/10/25 06:00 03/12/25 05:58 100 MLS/HR Hydromorphone HCl 0.5 mg Q4HPRN PRN IV 03/09/25 17:30 03/12/25 09:54 0.5 MG Albuterol 90 mcg Q6HP IN 03/10/25 00:00 UNV Amlodipine Besylate 5 mg DAILY PO 03/10/25 10:00 Carisoprodol 350 mg BIDP PRN PO 03/09/25 18:30 Lisinopril 20 mg DAILYP PO 03/10/25 10:00 Atorvastatin Calcium 40 mg HS PO 03/09/25 22:00 03/11/25 23:05 40 MG Albuterol 2.5 mg Q6HPRN PRN NEB 03/10/25 00:00 03/11/25 06:41 2.5 MG objective GEN: NAD ABD: RLQ TTP but improving. laboratory and microbiology Laboratory Tests 03/12/25 08:49 Test 03/12/25 08:49 Range/Units Serum Glucose 104 74-106 mg/dL Assessment/Plan A: 1. Recurrent diverticulitis clinically improving on abx. P: 1. stable from surgery POV for DC home with oral abx for another week. Dietary Evaluation Review Comments: 1) Encourage optimal PO intake 2) Advance to low-fiber diet when medically feasible, pending [employer] approval 3) Refer to outpatient RD for weight management and education on how to slowly add fiber back into diet once flare up is over 4) Follow-up with gastroenterolog and hepatology 5) Continue to monitor I&O, labs, and skin integrity Expected Outcomes/Goals: 1) appetite and labs to improve 2) diet to advance 3) f/u in 3-5 days Plan discussed with: Patient NEDA LEIGH MD Mar 12, 2025 14:52
--- NOTE | 2025-03-12 17:37 | DVHPN2 ---
Subjective Pain much better Reviewed: H&P, Labs Changes from previous H/P or p: No Changes Eyes: No Pain, No Vision change, No Conjunctivae inflammation, No Eyelid inflammation, No Other, No Redness ENT: No Ear pain, No Ear discharge, No Nose pain, No Nose discharge, No Nose congestion, No Mouth pain, No Mouth swelling, No Throat pain, No Throat swelling, No Other Cardiovascular: No Chest Pain, No Palpitations, No Orthopnea, No Paroxysmal Noc. Dyspnea, No Edema, No Lt Headedness, No Other Respiratory: No Cough, No Dry, No Shortness of breath, No SOB with excertion, No Wheezing, No Hemoptysis, No Pleuritic Pain, No Sputum, No Other Gastrointestinal: No Nausea, No Vomiting; Abdominal Pain; No Diarrhea, No Constipation, No Melena, No Hematochezia, No Other Genitourinary: No Dysuria, No Frequency, No Incontinence, No Hematuria, No Retention, No Other Musculoskeletal: No other, No neck pain, No shoulder pain, No arm pain, No back pain, No hand pain, No leg pain, No foot pain Skin: No Rash, No Lesions, No Jaundice, No Bruising, No Other Objective Vitals Vital Signs Date Time Temp Pulse Resp B/P (MAP) Pulse Ox O2 Delivery O2 Flow Rate FiO2 03/12/25 17:00 97.8 75 16 117/75 (89) 96 97.8 03/12/25 10:43 Room Air 0.0 03/12/25 10:43 21 Intake/Output Intake and Output 03/12/25 07:00 Intake Total 1800 ml Balance 1800 ml Intake Oral 1200 ml IV Total 600 ml # Voids 11 General Appearance: Alert, Oriented X3 Cardiovascular: Regular rate, Normal S1, Normal S2 Abdomen: Normal bowel sounds, Soft Medications Current Medications Medications Dose Ordered Sig/Mel Route Start Time Stop Time Status Last Admin Dose Admin Sodium Chloride 1,000 ml @ 120 mls/hr Q8H20M IV 03/09/25 17:30 03/11/25 19:30 120 MLS/HR Ondansetron HCl 4 mg Q4HP PRN IV 03/09/25 17:30 03/11/25 12:05 4 MG Nitroglycerin 0.4 mg Q5MINP PRN SL 03/09/25 17:30 Ciprofloxacin 200 ml @ 200 mls/hr Q12HR IV 03/10/25 10:00 03/12/25 09:54 200 MLS/HR Metronidazole 100 ml @ 100 mls/hr Q8HR IV 03/10/25 06:00 03/12/25 05:58 100 MLS/HR Hydromorphone HCl 0.5 mg Q4HPRN PRN IV 03/09/25 17:30 03/12/25 09:54 0.5 MG Albuterol 90 mcg Q6HP IN 03/10/25 00:00 UNV Amlodipine Besylate 5 mg DAILY PO 03/10/25 10:00 Carisoprodol 350 mg BIDP PRN PO 03/09/25 18:30 Lisinopril 20 mg DAILYP PO 03/10/25 10:00 Atorvastatin Calcium 40 mg HS PO 03/09/25 22:00 03/11/25 23:05 40 MG Albuterol 2.5 mg Q6HPRN PRN NEB 03/10/25 00:00 03/11/25 06:41 2.5 MG Laboratory Results Laboratory Tests 03/12/25 08:49 Chemistry Test 03/12/25 08:49 Calcium Level 10.0 mg/dL (8.7-10.4) Urinalysis Test 03/09/25 15:16 Urine Color Yellow (Yellow) Urine Clarity Clear (Clear) Urine pH 5.0 (5.0-9.0) Urine Specific [place] 1.024 (1.001-1.035) Urine Protein Negative (Negative) Urine Ketones Negative (Negative) Urine Blood Negative /uL (Negative) Urine Nitrite Negative (Negative) Urine Bilirubin Negative (Negative) Urine Urobilinogen 2 mg/dL (Negative) H Urine Leukocyte Esterase Negative /uL (Negative) Urine RBC <1 /hpf (0 - 4) Urine Microscopic WBC 1 /HPF (0-5) Urine Squamous Epithelial Cells Few /hpf (<5) Urine Bacteria None seen /hpf (None Seen) Urine Hyaline Casts Few /lpf (0 - 2) Urine Mucus Few (None Seen) Urine Glucose Normal mg/dL (Normal) Assessment/Plan Assessment/Plan acute diverticulitis no abscess found ct scan abd pelvis IV abx Clear diet>advanced to regular surgery following chronic problems hepatic steatosis hepatomegaly asthma copd no exacerbation hld htn seizures fen/ppx npo for now ivf no hx of gerds or gi bleed no gi ppx no dvt ppx since pt ambulatory Plan discussed with: Patient Date of Service: Mar 12, 2025 Billing Provider: POLLY CASPER MD Common Visit Codes: [id number] INP/OBS CARE(HIGH) POLLY CASPER MD Mar 12, 2025 17:37
[2025-03-12] MEDS: CARISOPRODOL 350 MG TAB PO PRN (21:33)
[2025-03-13 01:00] VITALS: BP 162/106; PULSE 78; RESP 17; TEMP 97.6; O2SAT 97
[2025-03-13 05:00] VITALS: BP 126/87; PULSE 68; RESP 16; TEMP 95.5; O2SAT 94
[2025-03-13 08:14] LABS: Basophils # (auto) 0 10 ^3/uL (0-0.2); Eosinophils # (auto) 0.1 10 ^3/uL (0-0.8); Eosinophils % (auto) 2.6 % (0.0-7.0); Hematocrit 38.1 % (36.0-46.0); Hemoglobin 12.8 g/dL (12.2-16.2); Lymphocytes # (auto) 1.1 10 ^3/uL (0.4-5.4); Lymphocytes % (auto) 29.8 % (10.0-50.0); Mean Corpuscular Hemoglobin 30.8 pg (28.0-32.0); Mean Corpuscular Hgb Conc. 33.6 g/dL (32.0-36.0); Mean Corpuscular Volume 91.8 fL (80.0-100.0); Monocytes # (auto) 0.2 10 ^3/uL (0-1.3); Monocytes % (auto) 6.9 % (0.0-12.0); Neutrophils # (auto) 2.2 10 ^3/uL (1.6-8.6); Neutrophils % (auto) 59.7 % (37.0-80.0); Platelet Count (auto) 168 10^3/uL (140-450); Red Blood Cells 4.15 10^6/uL (4.0-5.20); White Blood Cell 3.6 10^3/uL (4.4-10.8)
[2025-03-13 08:37] LABS: Anion Gap 5 (5-15); Carbon Dioxide 30 mmol/L (20-31); Chloride 104 mmol/L (98-107); Potassium 4.2 mmol/L (3.5-5.1); Sodium 139 mmol/L (136-145)
[2025-03-13 08:38] LABS: Calcium 10.1 mg/dL (8.7-10.4)
[2025-03-13 08:43] LABS: BUN/Creatinine Ratio 14.5 (10.0-20.0); Glucose 103 mg/dL (74-106)
[2025-03-13 08:44] LABS: Blood Urea Nitrogen 9 mg/dL (9-23)
[2025-03-13 09:00] VITALS: BP 145/92; PULSE 71; RESP 16; TEMP 97.9; O2SAT 97
--- NOTE | 2025-03-13 09:25 | DVHPN2 ---
Progress Note - Dictate Date Seen: Mar 13, 2025 Medical Necessity Reason Pt with a Central, PICC or Fol: No Subjective E: no major events o/n. feels better. [place] po. vital signs Vital Sign Date Time Temp Pulse Resp B/P (MAP) Pulse Ox O2 Delivery O2 Flow Rate FiO2 03/13/25 09:18 71 16 145/92 03/13/25 08:00 Room Air* 0 21 03/13/25 05:00 95.5 94 95.5 Total Intake and Output 03/12/25 03/12/25 03/13/25 15:00 23:00 07:00 Intake Total 200 ml 100 ml 900 ml Balance 200 ml 100 ml 900 ml medications Current Medications Medications Dose Ordered Sig/Mel Route Start Time Stop Time Status Last Admin Dose Admin Sodium Chloride 1,000 ml @ 120 mls/hr Q8H20M IV 03/09/25 17:30 03/12/25 21:38 120 MLS/HR Ondansetron HCl 4 mg Q4HP PRN IV 03/09/25 17:30 03/11/25 12:05 4 MG Nitroglycerin 0.4 mg Q5MINP PRN SL 03/09/25 17:30 Ciprofloxacin 200 ml @ 200 mls/hr Q12HR IV 03/10/25 10:00 03/13/25 09:16 200 MLS/HR Metronidazole 100 ml @ 100 mls/hr Q8HR IV 03/10/25 06:00 03/13/25 06:15 100 MLS/HR Hydromorphone HCl 0.5 mg Q4HPRN PRN IV 03/09/25 17:30 03/13/25 09:18 0.5 MG Albuterol 90 mcg Q6HP IN 03/10/25 00:00 UNV Amlodipine Besylate 5 mg DAILY PO 03/10/25 10:00 03/13/25 09:15 5 MG Carisoprodol 350 mg BIDP PRN PO 03/09/25 18:30 03/12/25 21:33 350 MG Lisinopril 20 mg DAILYP PO 03/10/25 10:00 03/13/25 09:15 20 MG Atorvastatin Calcium 40 mg HS PO 03/09/25 22:00 03/12/25 21:34 40 MG Albuterol 2.5 mg Q6HPRN PRN NEB 03/10/25 00:00 03/12/25 18:17 2.5 MG objective GEN: NAD ABD: soft. much less TTP. no G/R. laboratory and microbiology Laboratory Tests 03/13/25 07:48 Test 03/13/25 07:48 Range/Units Serum Glucose 103 74-106 mg/dL Assessment/Plan A: 1. Recurrent diverticulitis clinically improving on abx. P: 1. stable from surgery POV for DC home with oral abx for another week. Dietary Evaluation Review Comments: 1) Encourage optimal PO intake 2) Advance to low-fiber diet when medically feasible, pending [employer] approval 3) Refer to outpatient RD for weight management and education on how to slowly add fiber back into diet once flare up is over 4) Follow-up with gastroenterolog and hepatology 5) Continue to monitor I&O, labs, and skin integrity Expected Outcomes/Goals: 1) appetite and labs to improve 2) diet to advance 3) f/u in 3-5 days Plan discussed with: Patient NEDA LEIGH MD Mar 13, 2025 09:25
[2025-03-13 10:05] VITALS: O2SAT 97
[2025-03-13] MEDS ORDERED: CIPR-173 PO (13:59)
[2025-03-13] MEDS ORDERED: METR-344 PO (13:59)
--- NOTE | 2025-03-13 14:01 | DVHDS2 ---
Discharge Summary Date of Admission March 09, 2025 at 17:22 Date of Discharge: Mar 13, 2025 Labs/Diagnostic Data: Laboratory Results Test 03/13/25 07:48 03/10/25 07:17 03/09/25 15:16 03/09/25 14:51 White Blood Count 3.6 10^3/uL (4.4-10.8) Red Blood Count 4.15 10^6/uL (4.0-5.20) Hemoglobin 12.8 g/dL (12.2-16.2) Hematocrit 38.1 % (36.0-46.0) Mean Corpuscular Volume 91.8 fL (80.0-100.0) Mean Corpuscular Hemoglobin 30.8 pg (28.0-32.0) Mean Corpuscular Hemoglobin Concent 33.6 g/dL (32.0-36.0) Red Cell Distribution Width 13.0 % (11.8-14.3) Platelet Count 168 10^3/uL (140-450) Mean Platelet Volume 6.9 fL (6.9-10.8) Neutrophils (%) (Auto) 59.7 % (37.0-80.0) Lymphocytes (%) (Auto) 29.8 % (10.0-50.0) Monocytes (%) (Auto) 6.9 % (0.0-12.0) Eosinophils (%) (Auto) 2.6 % (0.0-7.0) Basophils (%) (Auto) 1.0 % (0.0-2.0) Neutrophils # (Auto) 2.2 10 ^3/uL (1.6-8.6) Lymphocytes # (Auto) 1.1 10 ^3/uL (0.4-5.4) Monocytes # (Auto) 0.2 10 ^3/uL (0-1.3) Eosinophils # (Auto) 0.1 10 ^3/uL (0-0.8) Basophils # (Auto) 0 10 ^3/uL (0-0.2) Nucleated Red Blood Cells 0.0 % Sodium Level 139 mmol/L (136-145) Potassium Level 4.2 mmol/L (3.5-5.1) Chloride Level 104 mmol/L (98-107) Carbon Dioxide Level 30 mmol/L (20-31) Anion Gap 5 (5-15) Blood Urea Nitrogen 9 mg/dL (9-23) Creatinine 0.62 mg/dL (0.550-1.02) Glomerular Filtration Rate Calc 102 mL/min (>90) BUN/Creatinine Ratio 14.5 (10.0-20.0) Serum Glucose 103 mg/dL (74-106) Calcium Level 10.1 mg/dL (8.7-10.4) Total Bilirubin 0.9 mg/dL (0.2-1.0) Aspartate Amino Transferase (AST) 33 U/L (13-40) Alanine Aminotransferase (ALT) 29 U/L (7-40) Alkaline Phosphatase 70 U/L (46-116) Total Protein 6.9 g/dL (5.7-8.2) Albumin 4.5 g/dL (3.2-4.8) Urine Color Yellow (Yellow) Urine Clarity Clear (Clear) Urine pH 5.0 (5.0-9.0) Urine Specific [place] 1.024 (1.001-1.035) Urine Protein Negative (Negative) Urine Ketones Negative (Negative) Urine Blood Negative /uL (Negative) Urine Nitrite Negative (Negative) Urine Bilirubin Negative (Negative) Urine Urobilinogen 2 mg/dL (Negative) Urine Leukocyte Esterase Negative /uL (Negative) Urine RBC <1 /hpf (0 - 4) Urine Microscopic WBC 1 /HPF (0-5) Urine Squamous Epithelial Cells Few /hpf (<5) Urine Bacteria None seen /hpf (None Seen) Urine Hyaline Casts Few /lpf (0 - 2) Urine Mucus Few (None Seen) Urine Glucose Normal mg/dL (Normal) Lipase 39 U/L (12-53) Other Laboratory Tests 03/13/25 07:48 Brief Hx & Hospital Course: Final diagnoses: Acute diverticulitis Diverticulosis hepatic steatosis hepatomegaly asthma copd no exacerbation hld htn seizures 59-year-old female who was admitted for abdominal pain she was found to have diverticulosis and diverticulitis She had diverticulosis and she had several episodes before and she is scheduled to see a surgeon as an outpatient for a colectomy She was seen here also by surgery and she was treated conservatively with IV antibiotics and her diet was advanced and she has tolerated in the No more rectal bleeding now She is stable for discharge Discharged home on Flagyl and Cipro for 7 days and follow up with the primary care physician to have the referral to General surgery as an outpatient Resume other home medications Condition at Discharge: Stable Final Diagnosis/Problems List Acute diverticulitis Diverticulosis hepatic steatosis hepatomegaly asthma copd no exacerbation hld htn seizures Discharge Disposition: Home SNF Discharge Will this Physician continue t: No Discharge Instruct/Medications Diet: Cardiac 2g Na,low cholest Activity: No Restrictions, As Tolerated Follow Up/Referral: Follow up with PCP as soon as possible Medications: Cipro and Flagyl for 7 days Discharge Statement: "Patient was advised to return to the ER or call 911 if any headaches, dizziness, shortness of breath, chest pain, abdominal pain, bleeding, fevers, or worsening of medical condition. Patient was counseled about treatment plan, medications, possible side effects, patientverbalized understanding. All questions were answered to the best of my ability. This discharge took greater then 30 minutes in planning, reviewing documentation, counseling the patient, and discussing with other team members." ASSESSMENT ASSESSMENT Assessment Acute diverticulitis Diverticulosis hepatic steatosis hepatomegaly asthma copd no exacerbation hld htn seizures Date of Service: Mar 13, 2025 Billing Provider: GELACIO ERYES MD Common Visit Codes: [id number] DISCH DAY >30min GELACIO REYES MD Mar 13, 2025 14:01
[2025-03-13 14:25] VITALS: BP 138/85; PULSE 67; RESP 16; TEMP 98; O2SAT 97
== END 2025-03-13 15:35 | disposition home or self-care (01) | DRG 244 ==
LOC: ER 14:37 → OVERFLOW 17:22 → EAST 03-10 02:54
PROVIDERS: ADMIT Internal Medicine Geriatric Medicine; ATTEND Internal Medicine Geriatric Medicine
DX: K57.31 Diverticulosis of large intestine without perforation or abscess with bleeding (principal); K76.0 Fatty (change of) liver, not elsewhere classified; R16.0 Hepatomegaly, not elsewhere classified; K57.32 Diverticulitis of large intestine without perforation or abscess without bleeding; G40.909 Epilepsy, unspecified, not intractable, without status epilepticus; I10 Essential (primary) hypertension; E78.5 Hyperlipidemia, unspecified; F17.210 Nicotine dependence, cigarettes, uncomplicated; J44.89 Other specified chronic obstructive pulmonary disease; Z80.1 Family history of malignant neoplasm of trachea, bronchus and lung; Z80.3 Family history of malignant neoplasm of breast; Z80.49 Family history of malignant neoplasm of other genital organs; Z82.49 Family history of ischemic heart disease and other diseases of the circulatory system; Z82.5 Family history of asthma and other chronic lower respiratory diseases; Z88.0 Allergy status to penicillin; Z91.013 Allergy to seafood; Z90.49 Acquired absence of other specified parts of digestive tract; Z79.899 Other long term (current) drug therapy
CPT/HCPCS: 36415; 74176; 80048; 80053; 81001; 83690; 85025; 94640; 96361; 96374; 96375; G0378; J2405; J3490